=== PATIENT | female | born 1945 | race Caucasian/White ===

== ENCOUNTER 2018-07-30 10:09 | Outpatient (CLI) | payer MEDICARE, BC | END 2018-07-30 10:10 | disposition home or self-care (01) | LOC: BICMAMMO 10:09 | PROVIDERS: ATTEND Obstetrics & Gynecology | DX: Z12.31 Encounter for screening mammogram for malignant neoplasm of breast (principal); Z80.3 Family history of malignant neoplasm of breast | CPT/HCPCS: 77063; 77067 ==

== ENCOUNTER 2019-07-31 10:12 | Outpatient (CLI) | payer MEDICARE, BC ==
--- NOTE | 2019-07-31 12:00 | MMO ---
Bilateral MAMMO Bilat Diag DDI+MATT. CLINICAL HISTORY: Patient is 73 years old and is seen for screening. The patient has the following family history of breast cancer: 3 maternal aunts and 2 cousin females. The patient has no personal history of cancer. The patient has a history of right Excisional Biopsy at age 26 - benign. VIEWS: The views performed were: bilateral craniocaudal with tomosynthesis; bilateral mediolateral oblique with tomosynthesis; and bilateral mediolateral with tomosynthesis. FILMS COMPARED: The present examination has been compared to prior imaging studies performed at [facility] on 07/29/2017, 07/30/2018 and 07/31/2019. This study has been interpreted with the assistance of computer-aided detection. MAMMOGRAM FINDINGS: There are scattered fibroglandular densities. There are no suspicious masses, suspicious calcifications, or new areas of architectural distortion. IMPRESSION: THERE IS NO MAMMOGRAPHIC EVIDENCE OF MALIGNANCY. A ROUTINE FOLLOW-UP MAMMOGRAM IN 1 YEAR IS RECOMMENDED. THE RESULTS OF THIS EXAM WERE SENT TO THE PATIENT. ACR BI-RADS Category 2 - Benign finding MAMMOGRAPHY NOTE: 1. A negative mammogram report should not delay a biopsy if a dominant of clinically suspicious mass is present. 2. Approximately 10% to 15% of breast cancers are not detected by mammography. 3. Adenosis and dense breasts may obscure an underlying neoplasm. Reported by: JIMMY ANDERSON MD Electonically Signed: [id number]
--- NOTE | 2019-07-31 12:29 | BD ---
DEXA BONE DENSITY STUDY: Date: 07/31/19 HISTORY: Postmenopausal. FINDINGS: Lumbar Spine: BMD (g/cm2) L1 0.885 T-Score: -1.0 L2 0.923 T-Score: -1.0 L3 0.906 T-Score: -1.6 L4 0.949 T-Score: -1.0 Total 0.918 T-Score: -1.2 Left Femoral Neck: 0.584 T-Score: -2.4 Total Femur: 0.783 T-Score: -1.3 IMPRESSION: 1. 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 2. 10 year fracture risk for major osteoporotic fracture is 14% and for a hip fracture is 3.6%. Thes e fracture probabilities are calculated for an untreated patient. POS: TPC
--- NOTE | 2019-07-31 13:15 | ULT ---
RIGHT BREAST ULTRASOUND: Date: 07/31/19 HISTORY: Palpable abnormality in right axilla. FINDINGS: Sonographic evaluation of the right axilla demonstrates no abnormality. No mammographic abnormality i s seen on the same day's mammogram. IMPRESSION: BI-RADS Category 2 - Benign findings. Return to annual mammographic screening. POS: OFF
--- NOTE | 2019-07-31 13:16 | ULT ---
LEFT BREAST ULTRASOUND: Date: 07/31/19 HISTORY: Palpable abnormality at 4 o'clock position of left breast, 10 cm from the nipple. FINDINGS: Correlation made with mammogram from same date. No sonographic abnormality is seen. IMPRESSION: BI-RADS Category 2 - Benign findings. Return to annual mammographic screening. POS: OFF
== END 2019-07-31 10:13 | disposition home or self-care (01) ==
LOC: BICMAMMO 10:12
PROVIDERS: ATTEND Obstetrics & Gynecology
DX: Z13.820 Encounter for screening for osteoporosis (principal); M85.89 Other specified disorders of bone density and structure, multiple sites; N63.20 Unspecified lump in the left breast, unspecified quadrant
CPT/HCPCS: 76642 ×2; 77066; 77080; G0279

== ENCOUNTER 2020-01-27 19:31 | Inpatient (IN) | payer MEDICARE, BC, OTHER ==
[~2020-01-27 19:31] MED LIST: Heparin 1,000 UNITS/ML VIAL ONE
[2020-01-27 21:31] LABS: Base Excess (BEa) -2.1 mEq/L (-2.0 to +3.0); CO2 Tension 35.4 mmHg (35.0-45.0); Carboxyhemoglobin (COHb) 0.5 gm% (0.0-3.0); Hemoglobin (Hb) 13.2 g/dL (12.0-16.0); O2 Tension (PaO2), arterial 92.5 mmHg (> 70.0); pH, Arterial 7.41 (7.35-7.45)
[2020-01-27 21:32] LABS: Calcium, Ionized 1.16 mmol/L (1.12-1.30); Potassium - ABG Lab 3.43 mmol/L (3.70-5.30); Puncture Site RRA
[2020-01-27] MEDS ORDERED: Ondansetron ODT 4 MG TAB PO PRN (23:28)
[2020-01-27] MEDS ORDERED: Acetaminophen 650 MG Suppository PR PRN (23:28)
[2020-01-27] MEDS ORDERED: Ondansetron PF 4 MG/2 ML Vial IVP PRN (23:28)
[2020-01-27] MEDS ORDERED: Ventilator Sedation Protocol 1 EACH FS SCH (23:30)
[2020-01-27] MEDS ORDERED: fentaNYL Citrate/PF 2,000 MCG in Sodium Chloride 0.9% 60 ML IV SCH (23:40)
[2020-01-27] MEDS ORDERED: Propofol BOLUS 1,000 MG/100 ML VIAL IV PRN (23:40)
[2020-01-27] MEDS ORDERED: DISCONTINUE PREVIOUS NARCOTIC PAIN MEDICATIONS AND BENZODIAZEPINES FS SCH (23:40)
[2020-01-27] MEDS ORDERED: Fentanyl BOLUS 250 ML IVPB PRN (23:40)
[2020-01-27] MEDS ORDERED: Azithromycin 500 MG in Sodium Chloride 0.9% 250 ML 250 ML IVPB SCH (23:59)
--- NOTE | 2020-01-28 00:43 | HP ---
PRIMARY CARE PHYSICIAN: Israel Call. REASON FOR ADMISSION: Hypoxic respiratory failure with COVID-19 infection. HISTORY OF PRESENT ILLNESS: This is a 74-year-old white female, who was admitted to [facility] on January 22 for a fever with fatigue, cough, and shortness of breath. She had multiple positive COVID contacts in her household including her and son and is reportedly COVID positive herself, per [facility], she was treated over the course of the next 4 days with supportive care. Initially did have some antibiotics, uncertain if any were continued as we do not have an updated medical list from them. The patient became more fatigued over hospitalization, but was doing well from a respiratory standpoint until today. Today, she started to become hypoxic, was initially put on nasal cannula O2 eventually on a 15 L non-rebreather and the patient's oxygen saturation continued to drop down to the 60s on the non-rebreather. At that time, she was intubated and put on 100% FiO2 with good oxygen saturations and she was transferred here for ICU care and Pulmonology consult. I did examine her in the ICU on arrival. She is intubated and sedated. She was initially saturating 100% on the vent. The FiO2 has been turned down to 70% and she is now saturating between 95% and 96%. Her other vitals are stable. All history is taken from the chart as there is no family present and she is currently intubated and sedated. REVIEW OF SYSTEMS: Unable to obtain secondary to patient's intubated, sedated status. PAST MEDICAL HISTORY: 1. Hearing loss. 2. Hyperlipidemia. 3. Possible hypertension. PAST SURGICAL HISTORY: Cholecystectomy. FAMILY HISTORY: Positive for colon cancer in her father. SOCIAL HISTORY: No tobacco, alcohol, or illicit drug use. She is , lives with her and son, both of whom are currently sick at home with COVID as well. Her [id number] is from a COVID infection and on the of this month. ALLERGIES: 1. AUGMENTIN. 2. CODEINE. HOME MEDICATIONS: 1. Triamterene. 2. Lipitor. Current medications from [facility], no active med list was sent with her. PHYSICAL EXAMINATION: VITAL SIGNS: Blood pressure 116/59, pulse 80, respirations 18 on the vent, O2 saturation 96% currently, on FiO2 of 70%, temperature 101.4. GENERAL: This is a well-developed, well-nourished white female, sedated on the vent and in no current distress. HEENT: Pupils are equal, round, and reactive to light. Oropharynx with ET tube in place. NECK: Supple. No evidence of trauma. No bruising. No lymphadenopathy. No masses. No other abnormalities. LUNGS: The patient has some mild crackles, worse on the right compared to the left, bilateral lungs, but good air movement throughout. No wheezes or rhonchi. ABDOMEN: Soft, nontender to palpation. Normoactive bowel sounds. No hepatosplenomegaly or other masses. EXTREMITIES: No clubbing, cyanosis, or edema. SKIN: No rashes or other lesions noted. NEUROLOGIC: The patient does not have any evidence of facial droop. 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 LABORATORY DATA: ABG done here reviewed, shows the large A-aO2 gradient. Good oxygenation and good ventilation currently. Labs from [facility] reviewed, shows no renal failure. No leukocytosis. She had some lactic acidosis initially that resolved with some fluids in their hospital. No other significant abnormalities. ASSESSMENT: 1. COVID-19 infection, now with acute respiratory failure with hypoxia. The patient is doing better on the vent. We will continue to titrate down the FiO2 as tolerated and keep her O2 sats in the mid to high 90s. We will consult Dr. Hernandez, Pulmonology for management in the vent. Uncertain if the patient was receiving antibiotics at the [facility], but we will go ahead and give azithromycin IV for now. We will leave the decision on hydroxychloroquine or other COVID risk specific treatments up to Dr. Hernandez when he sees her later in the morning. 2. Gastrointestinal prophylaxis. We will put the patient on Pepcid twice a day. 3. Deep venous thrombosis prophylaxis. We will put the patient on Lovenox subcu. 4. Hyperlipidemia. 5. Code status: The patient is a full code. Her medical power of admitted attorneys is her . He is currently recovering from COVID himself at home along with her son. Job ID: [id number]
[2020-01-28] MEDS: D5 1/2 NS w/10 mEq KCl 1,000 ML/1,000 ML BAG IV SCH ×3 (00:48→22:58)
[2020-01-28] MEDS: Propofol 1,000 MG/100 ML VIAL IV PRN ×2 (03:07→12:27)
[2020-01-28 03:48] LABS: #Lymphocytes 0.8 thou/uL (1.20-3.40); #Monocytes 0.5 thou/uL (0.11-0.59); #Neutrophils 9.9 thou/uL (1.40-6.50); %Basophils 0.1 % (0.0-1.0); %Eosinophils 0.2 % (0.0-10.0); %Lymphocytes 6.9 % (21.0-51.0); %Monocytes 4.7 % (0.0-10.0); %Neutrophils 88.2 % (42.0-75.0); Hemoglobin 12.6 g/dL (12.0-16.0); Mean Corpuscular HGB CONC 32.5 g/dL (32.0-36.0); Mean Corpuscular Hemoglobin 30.5 pg (27.0-31.0); Mean Corpuscular Volume 94.1 fL (78.0-98.0); Mean Platelet Volume 8.9 fL (7.4-10.4); Platelet Count 178 thou/uL (130-400); Red Blood Cell (RBC) Count 4.14 mill/uL (4.20-5.40); White Blood Cell (WBC) Count 11.2 thou/uL (4.8-10.8)
[2020-01-28 04:12] LABS: Anion Gap 14 mmol/L (10-20); BUN (Urea Nitrogen) 13 mg/dL (9.8-20.1); Calc. Creatinine Clearance 99 mL/min (70-130); Calcium 8.3 mg/dL (7.8-10.44); Carbon Dioxide 23 mmol/L (23-31); Chloride 104 mmol/L (98-107); Estimated GFR-MDRD 83; Glucose 120 mg/dL (83-110); Potassium 3.4 mmol/L (3.5-5.1); Sodium 138 mmol/L (136-145)
--- NOTE | 2020-01-28 08:19 | RAD ---
CHEST 1 VIEW: Date: 01/28/2020 HISTORY: Intubation, hypoxia. COMPARISON: 11/22/2012. FINDINGS: Endotracheal tube and NG tubes in satisfactory position. There is evidence for bilateral vascular con gestion with some perihilar and patchy interstitial and alveolar opacities with evidence for left ple ural effusion. These findings are new from prior exam. IMPRESSION: Evidence for bilateral vascular congestion with some scattered interstitial and alveolar opacities an d left pleural effusion. Continue short-term follow-up. POS: RRE
[2020-01-28] MEDS ORDERED: Hydroxychloroquine Sulfate 200 MG, Simple Syrup 4 ML, Water For Irrigation 4 ML PER TUBE SCH (09:00)
[2020-01-28] MEDS ORDERED: Hydroxychloroquine Sulfate 400 MG, Simple Syrup 8 ML, Water For Irrigation 8 ML PER TUBE SCH (09:00)
[2020-01-28] MEDS: Cefepime 2 GM in Sodium Chloride 0.9% 100 ML IVPB SCH ×2 (09:33→21:23)
[2020-01-28] MEDS: Enoxaparin Sodium 40 MG/0.4 ML SYRINGE SC SCH (09:33)
[2020-01-28] MEDS: Famotidine/PF 20 mg/2ml Vial SLOW IVP SCH ×2 (09:34→21:23)
[2020-01-28] MEDS: Hydroxychloroquine Sulfate 200 MG, Simple Syrup 4 ML, Water For Irrigation 4 ML PER TUBE SCH ×2 (09:35→21:24)
[2020-01-28] MEDS: Lorazepam 2 MG/ML VIAL SLOW IVP PRN ×2 (10:16→12:27)
--- NOTE | 2020-01-28 10:32 | CON ---
DATE OF CONSULTATION: 01/28/2020 HISTORY OF PRESENT ILLNESS: Ms. Harrington is a 74-year-old female, who was hospitalized at [facility] with a febrile illness. Her COVID screen was positive. She became more hypoxic yesterday, was intubated, transferred to [facility] in [place]. PAST MEDICAL HISTORY: Remarkable for hypertension, lipid disorder, and cholecystectomy. FAMILY HISTORY: Negative for lung disease reportedly in early age, positive for cancer. She is a nonsmoker and nondrinker. Both and son apparently are at home with COVID and [id number] with COVID earlier. REVIEW OF SYSTEMS: Not obtained. PHYSICAL EXAMINATION: VITAL SIGNS: Blood pressure 129/45, heart rate 88, respiratory rate in the 30s. NECK: Unremarkable. LUNGS: Distant breath sounds. HEART: Regular rhythm. ABDOMEN: Soft. EXTREMITIES: Without edema. LABORATORY DATA: White count 11.2, hemoglobin 12.6, platelets 178. Electrolytes are normal. Chest x-ray shows an alveolar infiltrate at the left base. It certainly could be a superimposed bacterial process. Bibasilar alveolar and interstitial infiltrates are seen. IMPRESSION: Pneumonia with respiratory failure, at least in part secondary to coronavirus, broad antimicrobial therapy in addition to hydroxychloroquine and Zithromax will be given. She fortunately does not have any evidence of an acid- base disorder, so for the time being, we will be doing frequent blood gases. Hopefully, we will see gradual improvement in her clinical stability. Critical care time is 35 minutes. Job ID: [id number] MTDD
[2020-01-28] MEDS ORDERED: Potassium Chloride 40 MEQ in Sodium Chloride 0.9% 250 ML 250 ML IVPB SCH (11:45)
[2020-01-28] MEDS: Acetaminophen 325 MG TAB PO PRN ×2 (12:40→22:15)
[2020-01-28] MEDS ORDERED: Magnesium 2 GM/50 ML 2 GM in Premix Bag 1 BAG IVPB SCH (13:00)
--- NOTE | 2020-01-28 21:12 | PDOC.HOSPP ---
- Subjective Encounter Date: 01/28/20 Subjective: Remains sedated and on the vent. - Objective Vital Signs & Weight: Vital Signs (12 hours) Temp Pulse Resp BP Pulse Ox 01/28/20 20:00 30 H 100 01/28/20 19:21 82 94/47 L 01/28/20 19:00 100.1 F H 01/28/20 18:00 18 01/28/20 16:00 99.8 F H 18 01/28/20 15:00 99.3 F 01/28/20 14:20 74 81/48 L 01/28/20 14:00 18 01/28/20 12:00 101.7 F H 24 H 01/28/20 10:24 79 01/28/20 10:00 36 H Weight Admit Weight 188 lb Weight 188 lb 14.978 oz Most Recent Monitor Data Heart Rate from ECG 83 NIBP 103/59 NIBP BP-Mean 73 Respiration from ECG 36 SpO2 100 I&O: 01/27/20 01/28/20 01/29/20 06:59 06:59 06:59 Intake Total 788 1454 Output Total 397 365 Balance 391 1089 Result Diagrams: 01/28/20 03:06 01/28/20 03:06 Hospitalist ROS - Medication Medications: Active Medications Generic Name Dose Route Start Last Admin Trade Name Mehran PRN Reason Stop Dose Admin Acetaminophen 650 mg 01/27/20 23:28 01/28/20 12:40 Tylenol PO 650 mg Q4H PRN Administration Headache/Fever/Mild Pain (1-3) Albumin Human 12.5 gm 01/28/20 19:00 01/28/20 19:29 Albumin 5% IVPB 01/29/20 01:00 12.5 gm NOW BOO Administration Hydroxychloroquine Sulfate 200 0 mg 01/28/20 09:00 01/28/20 09:35 mg/ Simple Syrup 4 ml/ PER TUBE 8 ml Sterile Water 4 ml BID BOO Administration Enoxaparin Sodium 40 mg 01/28/20 09:00 01/28/20 09:33 Lovenox SC 40 mg 0900 BOO Administration Famotidine 20 mg 01/28/20 09:00 01/28/20 09:34 Pepcid SLOW IVP 20 mg Q12HR BOO Administration Potassium Chloride/Dextrose/Sod Cl 1,000 ml in 1,000 mls @ 100 mls/hr 23:45 01/28/20 09:35 D5 1/2 Ns W/10 Meq Kcl IV 1,000 mls .Q10H BOO Administration Cefepime HCl 2 gm/ Sodium 100 mls @ 200 mls/hr 01/28/20 09:00 01/28/20 09:33 Chloride IVPB 100 mls Q12HR BOO Administration Lorazepam 2 mg 01/27/20 23:40 01/28/20 12:27 Ativan SLOW IVP 02/26/20 23:40 2 mg Q1H PRN Administration Breakthrough agitation Propofol 1,000 mg 01/27/20 23:40 01/28/20 12:27 Diprivan IV 02/26/20 23:40 1,000 mg INF PRN Administration TO ACHIEVE GOAL RASS Protocol Hosp A/P (1) Acute respiratory failure with hypoxia Code(s): J96.01 - ACUTE RESPIRATORY FAILURE WITH HYPOXIA Status: Acute (2) 2019-nCo acute respiratory disease Code(s): U07.1 - COVID-19; J06.9 - ACUTE UPPER RESPIRATORY INFECTION, UNSPECIFIED Status: Acute (3) Hyperlipidemia Code(s): E78.5 - HYPERLIPIDEMIA, UNSPECIFIED Status: Acute - Plan Ventilator management per pulmonology. On Hydroxycholoquine and azithromycin regimen.
[2020-01-28] MEDS: Azithromycin 500 MG in Sodium Chloride 0.9% 250 ML 250 ML IVPB SCH (21:24)
[2020-01-29] MEDS: Propofol 1,000 MG/100 ML VIAL IV PRN ×2 (02:31→09:37)
[2020-01-29 05:15] LABS: Band 10 % (5-11); Hemoglobin 11.2 g/dL (12.0-16.0); Lymphocytes 3 % (21-51); MDiff Complete? YES; Mean Corpuscular HGB CONC 33.9 g/dL (32.0-36.0); Mean Corpuscular Hemoglobin 32.1 pg (27.0-31.0); Mean Corpuscular Volume 94.8 fL (78.0-98.0); Mean Platelet Volume 11.1 fL (7.4-10.4); Monocytes 2 % (0-10); Neutrophil 84 % (42-75); Platelet Count 135 thou/uL (130-400); RBC Distribution Width 13.1 % (11.5-14.5); Red Blood Cell (RBC) Count 3.49 mill/uL (4.20-5.40); White Blood Cell (WBC) Count 8.9 thou/uL (4.8-10.8)
--- NOTE | 2020-01-29 07:34 | RAD ---
CHEST 1 VIEW: Date: 01/29/2020 HISTORY: Respiratory insufficiency. Ventilated patient. FINDINGS: NG tube and endotracheal tubes are in satisfactory location. Patchy interstitial and reticulonodular parenchymal changes noted bilaterally with some confluence, moreso in the left base and right upper l obe and right lower lobe. These bilateral parenchymal changes appear to have probably slightly worsen ed from the prior exam. Probable small pleural effusion, particularly on the left side. IMPRESSION: Bilateral parenchymal changes with some confluence possibly slightly worsening versus stable from mos t recent prior study. Continue short-term follow-up. POS: RRE
[2020-01-29] MEDS: D5 1/2 NS w/10 mEq KCl 1,000 ML/1,000 ML BAG IV SCH (09:32)
[2020-01-29] MEDS: Enoxaparin Sodium 40 MG/0.4 ML SYRINGE SC SCH (09:37)
[2020-01-29] MEDS: Famotidine/PF 20 mg/2ml Vial SLOW IVP SCH ×2 (09:37→21:15)
[2020-01-29] MEDS: Cefepime 2 GM in Sodium Chloride 0.9% 100 ML IVPB SCH ×2 (09:37→21:15)
[2020-01-29] MEDS: Hydroxychloroquine Sulfate 200 MG, Simple Syrup 4 ML, Water For Irrigation 4 ML PER TUBE SCH ×2 (09:57→21:15)
[2020-01-29 10:35] LABS: Anion Gap 15 mmol/L (10-20); BUN (Urea Nitrogen) 7 mg/dL (9.8-20.1); Calc. Creatinine Clearance 114 mL/min (70-130); Calcium 8.4 mg/dL (7.8-10.44); Carbon Dioxide 21 mmol/L (23-31); Chloride 106 mmol/L (98-107); Estimated GFR-MDRD Greater than 90; Glucose 110 mg/dL (83-110); Sodium 138 mmol/L (136-145)
[2020-01-29] MEDS ORDERED: Furosemide 100 MG/10 ML VIAL SLOW IVP SCH (11:13)
[2020-01-29] MEDS ORDERED: D5 1/2 NS w/10 mEq KCl 1,000 ML/1,000 ML BAG IV SCH (11:14)
--- NOTE | 2020-01-29 11:25 | PRG ---
DATE OF SERVICE: 01/29/2020 SUBJECTIVE: Ms. Harrington remains mechanically ventilated. Her airway pressures are acceptable. Her lung compliance is still good. OBJECTIVE: VITAL SIGNS: Blood pressure is 112/62, heart rate 77, FiO2 is at 50%. LUNGS: Unchanged. HEART: Unchanged. ABDOMEN: Unchanged. EXTREMITIES: She has no edema. Intake and output, positive, 2707, so she will be placed on Lasix. LABORATORY DATA: White count 8.9, hemoglobin 11.2, platelets 135. Electrolytes are unremarkable. PH 7.41, CO2 PO2 92. IMPRESSION: 1. Respiratory failure associated with COVID. 2. Possible superimposed bacterial pneumonia. 3. Positive fluid balance. PLAN: Try to keep her in a neutral or negative fluid balance. Continue ventilatory support. She appears to be stabilizing. CRITICAL CARE TIME: 30 minutes. Job ID: [id number]
[2020-01-29] MEDS: Lorazepam 2 MG/ML VIAL SLOW IVP PRN ×3 (14:43→17:46)
--- NOTE | 2020-01-29 14:54 | PDOC.PALCO ---
Palliative Care Consult - Consult Details Requesting Physician: Dr Hernandez Reason for Consult: family support - Pertinent HPI 74 year old female who was admitted at [facility] for fever fatigue, cough and shortness of breath. She is COVID positive as well as her and son. Mother in law on 01/21/2020 from Covid 19. Mrs Gray continued with decline and became hypoxic, place on non-rebreather @ 15 liters and O2 sat continued to decline and was in the 60's. Intubated, sedated and transferred to [facility] for ICU care and pulmonary consult. Vitals stable, remains mechanically ventilated and with sedation - Pertinent PMH HDL, HTN - Social History Smoking Status: Never smoker Smoking: no tobacco exposure Alcohol Use: none Drug Use History: none Living Situation: - Medications MAR Reviewed: Yes - Allergies Allergies/Adverse Reactions: Allergies Allergy/AdvReac Type Severity Reaction Status Date / Time amoxicillin trihydrate Allergy Verified 01/28/20 02:15 [From Augmentin] codeine Allergy Verified 01/28/20 02:15 potassium clavulanate Allergy Verified 01/28/20 02:15 [From Augmentin] - Subjective Sedated with mechanical ventilation - ROS Non Response: due to endotracheal tube, due to mental status - Objective Vital Signs: Vital Signs - Most Recent Temp Pulse Resp BP Pulse Ox 99.8 F H 77 45 H 112/62 100 01/29/20 13:00 01/29/20 10:50 01/29/20 14:00 01/29/20 10:50 01/29/20 08:00 Palliative Performance Scale: 20 - Problem List (1) Palliative care encounter Code(s): Z51.5 - ENCOUNTER FOR PALLIATIVE CARE Current Visit: Yes Status: Acute (2) 2019-nCoV acute respiratory disease Code(s): U07.1 - COVID-19; J06.9 - ACUTE UPPER RESPIRATORY INFECTION, UNSPECIFIED Current Visit: Yes Status: Acute (3) Acute respiratory failure with hypoxia Code(s): J96.01 - ACUTE RESPIRATORY FAILURE WITH HYPOXIA Current Visit: Yes Status: Acute (4) Hyperlipidemia Code(s): E78.5 - HYPERLIPIDEMIA, UNSPECIFIED Current Visit: Yes Status: Acute - Plan/Recommendations Plan: Introduced Palliative Care to and that we were available for family support. General life review of he and his , have known each other for greater than 55 years, for 50+. He was grateful she has always been in good health. Reviewed that today she was with no significant improvement, but no specific decline and that was good. He is hopeful for a full recovery and grateful for the care. Addressed questions. Emotional support and Therapeutic listening. Goal of care: Continue with all aggressive measures Communicated with Dr Dove [50] minutes spent on this encounter with >50% of the time in counseling and coordination of care. Thank you for this very appropriate consult.
[2020-01-29] MEDS: Acetaminophen 325 MG TAB PO PRN (17:53)
--- NOTE | 2020-01-29 20:45 | PDOC.HOSPP ---
- Subjective Encounter Date: 01/29/20 non-verbal Subjective: Intubated. - Objective Vital Signs & Weight: Vital Signs (12 hours) Temp Pulse Resp BP 01/29/20 19:15 76 01/29/20 18:00 101.8 F H 38 H 01/29/20 16:00 42 H 01/29/20 15:00 100.8 F H 01/29/20 14:48 81 111/53 L 01/29/20 14:00 45 H 01/29/20 13:00 99.8 F H 01/29/20 12:00 43 H 01/29/20 10:50 77 112/62 01/29/20 10:00 99.4 F 29 H Weight Admit Weight 188 lb Weight 194 lb 10.691 oz Most Recent Monitor Data Heart Rate from ECG 82 NIBP 86/46 NIBP BP-Mean 59 Respiration from ECG 21 SpO2 100 I&O: 01/28/20 01/29/20 01/30/20 06:59 06:59 06:59 Intake Total 788 3867.6 713 Output Total 397 1160 3925 Balance 391 2707.6 -8052 Result Diagrams: 01/29/20 04:07 01/29/20 04:07 Hospitalist ROS - Review of Systems ROS unobtainable: due to endotracheal tube - Medication Medications: Active Medications Generic Name Dose Route Start Last Admin Trade Name Freq PRN Reason Stop Dose Admin Acetaminophen 650 mg 01/27/20 23:28 01/29/20 17:53 Tylenol PO 650 mg Q4H PRN Administration Headache/Fever/Mild Pain (1-3) Albumin Human 12.5 gm 01/28/20 23:56 01/28/20 23:59 Albumin 5% IVPB 01/29/20 23:57 12.5 gm NOW PRN Administration REPEAT DOSE, LOW BP Hydroxychloroquine Sulfate 200 0 mg 01/28/20 09:00 01/29/20 09:57 mg/ Simple Syrup 4 ml/ PER TUBE 8 ml Sterile Water 4 ml BID BOO Administration Enoxaparin Sodium 40 mg 01/28/20 09:00 01/29/20 09:37 Lovenox SC 40 mg 0900 BOO Administration Famotidine 20 mg 01/28/20 09:00 01/29/20 09:37 Pepcid SLOW IVP 20 mg Q12HR BOO Administration Azithromycin 500 mg/ Sodium 250 mls @ 250 mls/hr 01/28/20 21:00 01/28/20 21: 24 Chloride IVPB 250 mls 2100 BOO Administration Cefepime HCl 2 gm/ Sodium 100 mls @ 200 mls/hr 01/28/20 09:00 01/29/20 09:37 Chloride IVPB 100 mls Q12HR BOO Administration Lorazepam 2 mg 01/27/20 23:40 01/29/20 17:46 Ativan SLOW IVP 02/26/20 23:40 2 mg Q1H PRN Administration Breakthrough agitation Propofol 1,000 mg 01/27/20 23:40 01/29/20 09:37 Diprivan IV 02/26/20 23:40 1,000 mg INF PRN Administration TO ACHIEVE GOAL RASS Protocol - Exam General - other findings: Deferred Hosp A/P (1) Acute respiratory failure with hypoxia Code(s): J96.01 - ACUTE RESPIRATORY FAILURE WITH HYPOXIA Status: Acute (2) 2019-nCoV acute respiratory disease Code(s): U07.1 - COVID-19; J06.9 - ACUTE UPPER RESPIRATORY INFECTION, UNSPECIFIED Status: Acute (3) Hyperlipidemia Code(s): E78.5 - HYPERLIPIDEMIA, UNSPECIFIED Status: Acute - Plan Status unchanged. Ventilator management per pulmonology. On Hydroxycholoquine and azithromycin regimen.
[2020-01-29] MEDS: Azithromycin 500 MG in Sodium Chloride 0.9% 250 ML 250 ML IVPB SCH (21:15)
[2020-01-30] MEDS: Lorazepam 2 MG/ML VIAL SLOW IVP PRN ×7 (01:53→16:05)
[2020-01-30] MEDS: Propofol 1,000 MG/100 ML VIAL IV PRN ×3 (03:00→18:50)
[2020-01-30 04:44] LABS: Anion Gap 14 mmol/L (10-20); BUN (Urea Nitrogen) 11 mg/dL (9.8-20.1); Calc. Creatinine Clearance 109 mL/min (70-130); Calcium 8.2 mg/dL (7.8-10.44); Carbon Dioxide 25 mmol/L (23-31); Chloride 103 mmol/L (98-107); Estimated GFR-MDRD Greater than 90; Glucose 111 mg/dL (83-110); Potassium 3.6 mmol/L (3.5-5.1); Sodium 138 mmol/L (136-145)
[2020-01-30 04:58] LABS: Band 2 % (5-11); Eosinophils 1 % (0-10); Hemoglobin 13.3 g/dL (12.0-16.0); Lymphocytes 6 % (21-51); MDiff Complete? YES; Mean Corpuscular HGB CONC 32.1 g/dL (32.0-36.0); Mean Corpuscular Hemoglobin 30.4 pg (27.0-31.0); Mean Corpuscular Volume 94.7 fL (78.0-98.0); Mean Platelet Volume 9.5 fL (7.4-10.4); Neutrophil 91 % (42-75); Platelet Count 172 thou/uL (130-400); RBC Distribution Width 12.9 % (11.5-14.5); Red Blood Cell (RBC) Count 4.36 mill/uL (4.20-5.40); White Blood Cell (WBC) Count 10.4 thou/uL (4.8-10.8)
--- NOTE | 2020-01-30 08:28 | RAD ---
SINGLE VIEW CHEST: HISTORY: Ventilated patient with respiratory failure. COMPARISON: 01/29/20 FINDINGS: A single view of the chest shows a normal sized cardiomediastinal silhouette. Lines and tubes are unc hanged in position. Bilateral perihilar opacities are seen. Diffuse increased interstitial markings a re present. There may be small bilateral pleural effusions. IMPRESSION: Small bilateral pleural effusions. POS: C
[2020-01-30] MEDS: Cefepime 2 GM in Sodium Chloride 0.9% 100 ML IVPB SCH ×2 (09:54→20:05)
[2020-01-30] MEDS: Enoxaparin Sodium 40 MG/0.4 ML SYRINGE SC SCH (09:54)
[2020-01-30] MEDS: Famotidine/PF 20 mg/2ml Vial SLOW IVP SCH ×2 (09:54→20:05)
[2020-01-30] MEDS: Hydroxychloroquine Sulfate 200 MG, Simple Syrup 4 ML, Water For Irrigation 4 ML PER TUBE SCH ×2 (09:55→20:08)
[2020-01-30] MEDS ORDERED: Potassium Chloride 40 MEQ in Premix Bag 1 BAG IVPB PRN (12:37)
[2020-01-30] MEDS ORDERED: Potassium Chloride 40 MEQ in Sodium Chloride 0.9% 250 ML 250 ML IVPB PRN ×2 (12:39→12:40)
[2020-01-30] MEDS: Potassium Chloride 40 MEQ in Sodium Chloride 0.9% 250 ML 250 ML IVPB PRN (13:28)
[2020-01-30] MEDS ORDERED: Enoxaparin Sodium 30 MG/0.3 ML SYRINGE SC SCH (13:30)
--- NOTE | 2020-01-30 14:35 | PRG ---
DATE OF SERVICE: 01/30/2020 SUBJECTIVE: Mckenzie Harrington's hemodynamics are stable. OBJECTIVE: VITAL SIGNS: Heart rate is in the 70s, blood pressure 113/59, FiO2 is at 50. LUNGS: Distant. HEART: Regular rhythm. ABDOMEN: Nontender. EXTREMITIES: Without edema. LABORATORY DATA: White count 10.4, hemoglobin 13.3, platelets 172. Electrolytes are normal. No blood gas recently in the morning. Chest x-ray shows mild increased interstitial markings. IMPRESSION: 1. Pneumonia. 2. COVID positive. She appears to have stabilized somewhat. Her negative fluid balance may have helped. We will bump up her dose of Lovenox for now. Renal function is stable. She is not a candidate for weaning and extubation at this point . CRITICAL CARE TIME: 30 minutes. Job ID: [id number]
[2020-01-30] MEDS: Fentanyl 100 MCG/2 ML VIAL ONE (14:57)
[2020-01-30] MEDS ORDERED: Lorazepam 100 ML IVPB SCH (16:15)
[2020-01-30] MEDS ORDERED: methylPREDNISolone Sod Succ/PF 125 MG/2 ML VIAL IVP SCH (19:00)
[2020-01-30] MEDS: Azithromycin 500 MG in Sodium Chloride 0.9% 250 ML 250 ML IVPB SCH (20:04)
[2020-01-30] MEDS: Acetaminophen 325 MG TAB PO PRN (20:23)
--- NOTE | 2020-01-30 22:35 | PDOC.EVN ---
Event Note - Event Note Event Note: Seen by PCCM earlier. Avoided physical encounter to limit unnecessary exposure. Appreciated notes from PCCM and palliative. per PCCM, clinically improving but not candidate for extubation. Will continue to follow
[2020-01-31] MEDS: Propofol 1,000 MG/100 ML VIAL IV PRN ×2 (01:01→05:55)
[2020-01-31 04:19] LABS: Anion Gap 11 mmol/L (10-20); BUN (Urea Nitrogen) 17 mg/dL (9.8-20.1); Calc. Creatinine Clearance 111 mL/min (70-130); Carbon Dioxide 27 mmol/L (23-31); Chloride 106 mmol/L (98-107); Estimated GFR-MDRD Greater than 90; Glucose 168 mg/dL (83-110); Magnesium 1.9 mg/dL (1.6-2.6); Potassium 3.6 mmol/L (3.5-5.1); Sodium 140 mmol/L (136-145)
[2020-01-31 04:45] LABS: Band 15 % (5-11); Hemoglobin 12.1 g/dL (12.0-16.0); Lymphocytes 5 % (21-51); MDiff Complete? YES; Mean Corpuscular HGB CONC 32.8 g/dL (32.0-36.0); Mean Corpuscular Hemoglobin 30.8 pg (27.0-31.0); Mean Corpuscular Volume 93.8 fL (78.0-98.0); Mean Platelet Volume 9.4 fL (7.4-10.4); Monocytes 1 % (0-10); Neutrophil 79 % (42-75); Platelet Count 188 thou/uL (130-400); RBC Distribution Width 12.9 % (11.5-14.5); Red Blood Cell (RBC) Count 3.93 mill/uL (4.20-5.40); White Blood Cell (WBC) Count 8.4 thou/uL (4.8-10.8)
[2020-01-31] MEDS: Potassium Chloride 40 MEQ in Sodium Chloride 0.9% 250 ML 250 ML IVPB PRN (05:54)
[2020-01-31] MEDS: Magnesium 2 GM/50 ML 2 GM in Premix Bag 1 BAG IVPB PRN (05:55)
--- NOTE | 2020-01-31 07:48 | RAD ---
SINGLE VIEW CHEST: Date: 01/31/2020 COMPARISON: 01/30/2020. HISTORY: Ventilated patient with respiratory failure. FINDINGS: Single view of the chest shows normal sized cardiomediastinal silhouette. The endotracheal tube and N G tube are unchanged in position. Increased interstitial lung markings are present. There is obscurit y of the left hemidiaphragm which may represent small left pleural effusion. IMPRESSION: Stable exam. POS: C
[2020-01-31] MEDS: Hydroxychloroquine Sulfate 200 MG, Simple Syrup 4 ML, Water For Irrigation 4 ML PER TUBE SCH ×2 (08:05→20:42)
[2020-01-31] MEDS: methylPREDNISolone Sod Succ/PF 125 MG/2 ML VIAL IVP SCH (08:06)
[2020-01-31] MEDS: Enoxaparin Sodium 40 MG/0.4 ML SYRINGE SC SCH (08:06)
[2020-01-31] MEDS: Famotidine/PF 20 mg/2ml Vial SLOW IVP SCH ×2 (08:06→20:41)
[2020-01-31] MEDS: Cefepime 2 GM in Sodium Chloride 0.9% 100 ML IVPB SCH ×2 (08:06→20:40)
[2020-01-31] MEDS ORDERED: Fentanyl 100 MCG/2 ML VIAL SLOW IVP SCH (11:30)
[2020-01-31] MEDS ORDERED: Fentanyl 100 MCG/2 ML VIAL ONE (11:30)
--- NOTE | 2020-01-31 17:00 | PRG ---
DATE OF SERVICE: 01/31/2020 SUBJECTIVE: Mckenzie Harrington is clinically unchanged. Somehow her pressure support got turned up to 20 and her FiO2 was increased to 60%. We have turned her pressure support back down, her PEEP up, and her FiO2 down. At this point in time, she appears to be stable. OBJECTIVE: VITAL SIGNS: Respiratory rates in the 20s, heart rate is in the 50s, blood pressure 104/57, oximetry is 94%. LUNGS: Unchanged. No report. HEART: Unchanged. No report. ABDOMEN: Unchanged. No report. EXTREMITIES: Unchanged. No report. LABORATORY DATA: White count 8.4, hemoglobin 12.1, platelets 188. Sodium 140, potassium 3.6, chloride 106, bicarb 27, BUN 17, creatinine 0.63. IMPRESSION: Pneumonia with respiratory failure. PLAN: Continue mechanical ventilation for now. Job ID: [id number]
--- NOTE | 2020-01-31 17:26 | PDOC.HOSPP ---
- Subjective Encounter Date: 01/31/20 Encounter Time: 17:00 Subjective: no overnight events. Becomes tachypnic and agitated when attempting sedation vacation. Remains intubated and sedated - Objective Vital Signs & Weight: Vital Signs (12 hours) Temp Pulse Resp BP Pulse Ox 01/31/20 16:00 24 H 01/31/20 15:00 99.1 F 01/31/20 14:48 69 95/53 L 01/31/20 14:00 28 H 01/31/20 12:00 98.2 F 22 H 01/31/20 11:17 73 99/58 L 01/31/20 11:00 97.3 F L 01/31/20 10:00 36 H 01/31/20 08:00 96.4 F L 18 92 L 01/31/20 06:58 62 99/54 L 01/31/20 06:00 18 Weight Admit Weight 188 lb Weight 199 lb 1.239 oz Most Recent Monitor Data Heart Rate from ECG 70 NIBP 103/56 NIBP BP-Mean 71 Respiration from ECG 21 SpO2 94 I&O: 01/30/20 01/31/20 02/01/20 06:59 06:59 06:59 Intake Total 1823.7 2764.5 1567 Output Total 4422 878 405 Balance -2598.3 1886.5 1162 Result Diagrams: 01/31/20 03:42 01/31/20 03:42 Hospitalist ROS - Review of Systems ROS unobtainable: due to endotracheal tube - Medication Medications: Active Medications Generic Name Dose Route Start Last Admin Trade Name Freq PRN Reason Stop Dose Admin Acetaminophen 650 mg 01/27/20 23:28 01/30/20 20:23 Tylenol PO 650 mg Q4H PRN Administration Headache/Fever/Mild Pain (1-3) Hydroxychloroquine Sulfate 200 0 mg 01/28/20 09:00 01/31/20 08:05 mg/ Simple Syrup 4 ml/ PER TUBE 8 ml Sterile Water 4 ml BID BOO Administration Enoxaparin Sodium 40 mg 01/28/20 09:00 01/31/20 08:06 Lovenox SC 40 mg 0900 BOO Administration Famotidine 20 mg 01/28/20 09:00 01/31/20 08:06 Pepcid SLOW IVP 20 mg Q12HR BOO Administration Azithromycin 500 mg/ Sodium 250 mls @ 250 mls/hr 01/28/20 21:00 01/30/20 20: 04 Chloride IVPB 250 mls 2100 BOO Administration Cefepime HCl 2 gm/ Sodium 100 mls @ 200 mls/hr 01/28/20 09:00 01/31/20 08:06 Chloride IVPB 100 mls Q12HR BOO Administration Potassium Chloride/Dextrose/Sod Cl 1,000 ml in 1,000 mls @ 0 mls/hr 01/29/20 11:14 01/30/20 20:09 D5 1/2 Ns W/10 Meq Kcl IV 1,000 mls .Q0M BOO Administration KVO Magnesium Sulfate 2 gm/ Device 50 mls @ 50 mls/hr 01/30/20 12:38 01/31/20 05: 55 IVPB 50 mls DAILYPRN PRN Administration MAG LEVEL < 2.0 Potassium Chloride 40 meq/ 270 mls @ 67.5 mls/hr 01/30/20 13:00 01/31/20 05: 54 Sodium Chloride IVPB 270 mls DAILYPRN PRN Administration K < 4.0 Lorazepam 100 mls @ 0 mls/hr 01/30/20 16:15 01/30/20 16:36 Ativan IVPB 100 mls INF BOO Administration Protocol Titrate Lorazepam 2 mg 01/27/20 23:40 01/30/20 16:05 Ativan SLOW IVP 02/26/20 23:40 2 mg Q1H PRN Administration Breakthrough agitation Methylprednisolone Sodium Succinate 60 mg 01/31/20 09:00 01/31/20 08:06 Solu-Medrol IVP 60 mg DAILY BOO Administration Propofol 1,000 mg 01/27/20 23:40 01/31/20 05:55 Diprivan IV 02/26/20 23:40 1,000 mg INF PRN Administration TO ACHIEVE GOAL RASS Protocol - Exam General - other findings: intubated and sedated Eye - other findings: pupils 2mm, equal ENT: moist mucosa Neck: no JVD Heart: RRR, no murmur, no gallops, no rubs Respiratory: CTAB, no wheezes, no rales, no ronchi, tachypneic Respiratory - other findings: breathing over vent in 30s Gastrointestinal: soft, non-distended Gastrointestinal - other findings: attenuated bowel sounds Hosp A/P - Plan #COVID pneumonia -remains intabated and sedated; 18/450/50/8, RR 30s breathing over vent, satting low 90s; -continues to be febrile; CXR (01/30) unchanged -ventilation management as per ICU -continue cefepime, azithromycin, hydroxychloroquine -follow I/O closely; has been positive in the past several days
[2020-01-31] MEDS: Azithromycin 500 MG in Sodium Chloride 0.9% 250 ML 250 ML IVPB SCH (20:40)
[2020-02-01] MEDS: Propofol 1,000 MG/100 ML VIAL IV PRN ×2 (00:55→08:39)
[2020-02-01 04:19] LABS: Anion Gap 12 mmol/L (10-20); BUN (Urea Nitrogen) 29 mg/dL (9.8-20.1); Calc. Creatinine Clearance 121 mL/min (70-130); Carbon Dioxide 25 mmol/L (23-31); Chloride 109 mmol/L (98-107); Estimated GFR-MDRD Greater than 90; Sodium 142 mmol/L (136-145)
[2020-02-01 04:20] LABS: Calcium 8.3 mg/dL (7.8-10.44); Glucose 144 mg/dL (83-110)
[2020-02-01 04:22] LABS: Band 7 % (5-11); Lymphocytes 1 % (21-51); MDiff Complete? YES; Mean Corpuscular HGB CONC 32.3 g/dL (32.0-36.0); Mean Corpuscular Hemoglobin 30.6 pg (27.0-31.0); Mean Corpuscular Volume 94.9 fL (78.0-98.0); Mean Platelet Volume 9.7 fL (7.4-10.4); Monocytes 5 % (0-10); Neutrophil 87 % (42-75); Platelet Count 224 thou/uL (130-400); RBC Distribution Width 12.9 % (11.5-14.5); Red Blood Cell (RBC) Count 3.92 mill/uL (4.20-5.40); White Blood Cell (WBC) Count 15.5 thou/uL (4.8-10.8)
[2020-02-01] MEDS: Cefepime 2 GM in Sodium Chloride 0.9% 100 ML IVPB SCH ×2 (08:38→19:41)
[2020-02-01] MEDS: methylPREDNISolone Sod Succ/PF 125 MG/2 ML VIAL IVP SCH (08:39)
[2020-02-01] MEDS: Enoxaparin Sodium 40 MG/0.4 ML SYRINGE SC SCH (08:40)
[2020-02-01] MEDS: Famotidine/PF 20 mg/2ml Vial SLOW IVP SCH ×2 (08:40→19:40)
[2020-02-01] MEDS: Hydroxychloroquine Sulfate 200 MG, Simple Syrup 4 ML, Water For Irrigation 4 ML PER TUBE SCH ×2 (09:16→20:17)
--- NOTE | 2020-02-01 09:16 | RAD ---
PORTABLE CHEST 1 VIEW: Date: 02/01/2020 Time: 0448 hours HISTORY: Respiratory failure. FINDINGS/IMPRESSION: Comparison made with exam from previous day. Endotracheal and nasogastric tubes remain in place. The heart size is stable. No pneumothoraces are s een. There are small bilateral pleural effusions. There is bilateral haziness in the lungs. POS: DELMAA
--- NOTE | 2020-02-01 12:49 | PRG ---
DATE OF SERVICE: 02/01/2020 SUBJECTIVE: Mckenzie Gray remains hemodynamically stable. Her gas exchange appears to be slowly improving. Chest radiographs essentially unchanged. poorly unchanged. LABORATORY STUDIES: White count 15.5, hemoglobin 12.0, platelets 224. Sodium 142, potassium 4, chloride 109, bicarb 25, BUN 29, creatinine 0.59. C-reactive protein is 19. IMPRESSION: 1. Pneumonia. 2. COVID-19 positive. 3. Respiratory failure as tolerated. We will try different combinations of sedative drugs to see if we can control her encephalopathy. Job ID: [id number]
--- NOTE | 2020-02-01 17:42 | PDOC.EVN ---
Event Note - Event Note Event Note: Remains HD stable, breathing over vent, tachypnic, low TV, lung compliance appears unchanged. Reviewed labs and imaging, increased neutrophilia likely due to steroids. CXR significantly rotated ,difficult to compare to previous. Avoided seeing patient physically today to limit COVID exposure.
[2020-02-01] MEDS: Azithromycin 500 MG in Sodium Chloride 0.9% 250 ML 250 ML IVPB SCH (20:17)
[2020-02-02 04:35] LABS: Anion Gap 13 mmol/L (10-20); BUN (Urea Nitrogen) 30 mg/dL (9.8-20.1); Calc. Creatinine Clearance 122 mL/min (70-130); Calcium 8.4 mg/dL (7.8-10.44); Carbon Dioxide 23 mmol/L (23-31); Chloride 110 mmol/L (98-107); Estimated GFR-MDRD Greater than 90; Glucose 106 mg/dL (83-110); Potassium 4.3 mmol/L (3.5-5.1); Sodium 142 mmol/L (136-145)
[2020-02-02 05:39] LABS: Band 13 % (5-11); Hemoglobin 13.4 g/dL (12.0-16.0); Lymphocytes 6 % (21-51); MDiff Complete? YES; Mean Corpuscular HGB CONC 31.7 g/dL (32.0-36.0); Mean Corpuscular Hemoglobin 29.9 pg (27.0-31.0); Mean Corpuscular Volume 94.1 fL (78.0-98.0); Mean Platelet Volume 9.4 fL (7.4-10.4); Monocytes 5 % (0-10); Neutrophil 76 % (42-75); Platelet Count 213 thou/uL (130-400); Red Blood Cell (RBC) Count 4.47 mill/uL (4.20-5.40); White Blood Cell (WBC) Count 14.8 thou/uL (4.8-10.8)
--- NOTE | 2020-02-02 07:32 | RAD ---
PORTABLE CHEST 1 VIEW: Date: 02/02/2020 Time: 0441 hours HISTORY: Respiratory failure. COMPARISON: Previous day. FINDINGS/IMPRESSION: Endotracheal and nasogastric tubes remain in place. The heart size is stable. The aorta is tortuous. There is pulmonary vascular congestion with bilateral pleural effusions. No pneumothoraces are seen. There are mild infiltrates in the lower lung torrez. POS: MZA
[2020-02-02] MEDS: Fentanyl 100 MCG/2 ML VIAL ONE (08:26)
[2020-02-02] MEDS: Cefepime 2 GM in Sodium Chloride 0.9% 100 ML IVPB SCH ×2 (08:29→21:06)
[2020-02-02] MEDS: Famotidine/PF 20 mg/2ml Vial SLOW IVP SCH ×2 (08:29→21:06)
[2020-02-02] MEDS: methylPREDNISolone Sod Succ/PF 125 MG/2 ML VIAL IVP SCH (08:30)
[2020-02-02] MEDS: Enoxaparin Sodium 40 MG/0.4 ML SYRINGE SC SCH (08:30)
--- NOTE | 2020-02-02 09:10 | PDOC.HOSPP ---
- Subjective Encounter Date: 02/02/20 Encounter Time: 08:45 Subjective: no overnight events. This morning, RR 60s per nurse so was given fentanyl. ventilation demand unchanged. - Objective Vital Signs & Weight: Vital Signs (12 hours) Temp Pulse Resp BP 02/02/20 07:19 68 02/02/20 06:00 28 H 02/02/20 04:00 97.6 F 36 H 02/02/20 02:03 60 151/82 H 02/02/20 02:00 26 H 02/02/20 00:00 98.6 F 38 H 02/01/20 23:03 63 02/01/20 22:00 31 H Weight Admit Weight 188 lb Weight 196 lb 3.382 oz Most Recent Monitor Data Heart Rate from ECG 58 NIBP 131/67 NIBP BP-Mean 88 Respiration from ECG 36 SpO2 93 I&O: 02/01/20 02/02/20 02/03/20 06:59 06:59 06:59 Intake Total 2618 1322 Output Total 1045 966 Balance 1573 356 Result Diagrams: 02/02/20 03:54 02/02/20 03:54 Hospitalist ROS - Review of Systems ROS unobtainable: due to endotracheal tube - Medication Medications: Active Medications Generic Name Dose Route Start Last Admin Trade Name Freq PRN Reason Stop Dose Admin Acetaminophen 650 mg 01/27/20 23:28 01/30/20 20:23 Tylenol PO 650 mg Q4H PRN Administration Headache/Fever/Mild Pain (1-3) Hydroxychloroquine Sulfate 200 0 mg 01/28/20 09:00 02/01/20 20:17 mg/ Simple Syrup 4 ml/ PER TUBE 8 ml Sterile Water 4 ml BID BOO Administration Enoxaparin Sodium 40 mg 01/28/20 09:00 02/02/20 08:30 Lovenox SC 40 mg 0900 BOO Administration Famotidine 20 mg 01/28/20 09:00 02/02/20 08:29 Pepcid SLOW IVP 20 mg Q12HR BOO Administration Azithromycin 500 mg/ Sodium 250 mls @ 250 mls/hr 01/28/20 21:00 02/01/20 20: 17 Chloride IVPB 250 mls 2100 BOO Administration Cefepime HCl 2 gm/ Sodium 100 mls @ 200 mls/hr 01/28/20 09:00 02/02/20 08:29 Chloride IVPB 100 mls Q12HR BOO Administration Potassium Chloride/Dextrose/Sod Cl 1,000 ml in 1,000 mls @ 0 mls/hr 01/29/20 11:14 01/30/20 20:09 D5 1/2 Ns W/10 Meq Kcl IV 1,000 mls .Q0M BOO Administration KVO Magnesium Sulfate 2 gm/ Device 50 mls @ 50 mls/hr 01/30/20 12:38 01/31/20 05: 55 IVPB 50 mls DAILYPRN PRN Administration MAG LEVEL < 2.0 Potassium Chloride 40 meq/ 270 mls @ 67.5 mls/hr 01/30/20 13:00 01/31/20 05: 54 Sodium Chloride IVPB 270 mls DAILYPRN PRN Administration K < 4.0 Lorazepam 100 mls @ 0 mls/hr 01/30/20 16:15 01/30/20 16:36 Ativan IVPB 100 mls INF BOO Administration Protocol Titrate Dexmedetomidine HCl 200 mcg/ 50 mls @ 0 mls/hr 02/01/20 09:45 02/02/20 07:36 Sodium Chloride IVPB 50 mls INF BOO Administration Protocol Per Protocol Midazolam HCl 100 mls @ 0 mls/hr 02/01/20 09:45 02/01/20 17:55 Versed IVPB 100 mls INF BOO Administration Protocol Titrate Lorazepam 2 mg 01/27/20 23:40 01/30/20 16:05 Ativan SLOW IVP 02/26/20 23:40 2 mg Q1H PRN Administration Breakthrough agitation Methylprednisolone Sodium Succinate 60 mg 01/31/20 09:00 02/02/20 08:30 Solu-Medrol IVP 60 mg DAILY BOO Administration - Exam General - other findings: intubated and sedated ENT: moist mucosa Heart: RRR, no murmur, no gallops, no rubs Respiratory: CTAB (anteriot and lateral torrez bilaterally), no wheezes, no rales, no ronchi Gastrointestinal: soft, non-distended, normal bowel sounds Extremities: 2+ LE edema Extremities - other findings: upper and lower extremities, pitting, equal Psychiatric - other findings: sedated Hosp A/P - Plan #COVID pneumonia -remains intabated and sedated; 18/450/40/8, RR 20s-30s breathing over vent, satting low to mid 90s; -CXR (02/01) is unchanged #hypervolemia -I/O positive in the past several days and CXR showing pulmonary congestion Plan: -ventilation management as per ICU -follow I/O closely; has been positive in the past several days; consider diuresing
[2020-02-02] MEDS: Morphine 2 MG/ML SYRINGE SLOW IVP PRN (09:54)
[2020-02-02] MEDS ORDERED: Sodium Chloride 0.9% 500 ML IVPB SCH (10:00)
[2020-02-02] MEDS: Hydroxychloroquine Sulfate 200 MG, Simple Syrup 4 ML, Water For Irrigation 4 ML PER TUBE SCH (11:02)
[2020-02-02] MEDS: fentaNYL Citrate/PF 2,000 MCG in Sodium Chloride 0.9% 60 ML IV SCH (12:42)
--- NOTE | 2020-02-02 15:49 | PRG ---
DATE OF SERVICE: 02/02/2020 Mckenzie drake had a lowish blood pressure earlier today, which responded to 500 mL fluid bolus. Her respiratory rates in the 20s, FiO2 still 40%, blood pressure this afternoon is 97/50, heart rates in the 60s oximetry is in the high 80s. Lungs, heart, and abdomen reported as unchanged. She is not having any ventilatory compliance issues. LABORATORY DATA: White count 14.8, hemoglobin 13.4, platelets 213. Electrolytes are unremarkable. C-reactive protein is still elevated at 19.6. IMPRESSION: 1. Pneumonia with respiratory failure. 2. COVID-19 positive. PLAN: Continue mechanical ventilation, slow weaning as tolerated. Job ID: [id number]
--- NOTE | 2020-02-02 17:27 | PDOC.PALPN ---
Palliative Progress Note - Subjective mechanically ventilated, sedated - Objective Vital Signs: Vital Signs - Most Recent Temp Pulse Resp BP Pulse Ox 98.1 F 62 24 H 151/82 H 90 L 02/02/20 16:00 02/02/20 15:10 02/02/20 16:00 02/02/20 02:03 02/02/20 08:00 - Physical Exam Constitutional: ill appearing HEENT: moist MMs Deviation from normal: mechanical ventilation Cardiovascular: RRR Gastrointestinal: incontinent Genitourinary: broussard catheter Deviation from normal: sedated - Assessment (1) Palliative care encounter Code(s): Z51.5 - ENCOUNTER FOR PALLIATIVE CARE Current Visit: Yes Status: Acute (2) 2019-nCoV acute respiratory disease Code(s): U07.1 - COVID-19; J06.9 - ACUTE UPPER RESPIRATORY INFECTION, UNSPECIFIED Current Visit: Yes Status: Acute (3) Acute respiratory failure with hypoxia Code(s): J96.01 - ACUTE RESPIRATORY FAILURE WITH HYPOXIA Current Visit: Yes Status: Acute (4) Hyperlipidemia Code(s): E78.5 - HYPERLIPIDEMIA, UNSPECIFIED Current Visit: Yes Status: Acute - Plan Plan: Reviewed records, spoke spoke with the twice through the day to offer emotional support. Reviewed status of his , and no current changes. Theraputic listening. Hope to transition to slow weaning as she is able to tolerate from mechanical ventilation. Palliative Care will continue to offer support as needed. [30] minutes spent on this encounter with >50% of the time in counseling and coordination of care. - ROS Non Response: due to endotracheal tube, due to mental status
[2020-02-03] MEDS: Lorazepam 2 MG/ML VIAL SLOW IVP PRN (02:14)
[2020-02-03 02:43] LABS: Actual Bicarbonate (HCO3a) 26.2 mEq/L (22-28); Base Excess (BEa) 1.4 mEq/L (-2.0 to +3.0); CO2 Tension 42.2 mmHg (35.0-45.0); Calcium, Ionized 1.21 mmol/L (1.12-1.30); Carboxyhemoglobin (COHb) 0.8 gm% (0.0-3.0); Hemoglobin (Hb) 13.3 g/dL (12.0-16.0); pH, Arterial 7.41 (7.35-7.45)
[2020-02-03 02:44] LABS: O2 Tension (PaO2), arterial 44.6 mmHg (> 70.0)
[2020-02-03 02:45] LABS: Puncture Site RRADIAL
[2020-02-03 04:24] LABS: Anion Gap 15 mmol/L (10-20); BUN (Urea Nitrogen) 40 mg/dL (9.8-20.1); Calc. Creatinine Clearance 115 mL/min (70-130); Calcium 7.7 mg/dL (7.8-10.44); Carbon Dioxide 18 mmol/L (23-31); Chloride 114 mmol/L (98-107); Estimated GFR-MDRD Greater than 90; Glucose 108 mg/dL (83-110); Sodium 142 mmol/L (136-145)
[2020-02-03] MEDS: methylPREDNISolone Sod Succ/PF 125 MG/2 ML VIAL IVP SCH (08:33)
[2020-02-03] MEDS: Enoxaparin Sodium 40 MG/0.4 ML SYRINGE SC SCH (08:36)
[2020-02-03] MEDS: Famotidine/PF 20 mg/2ml Vial SLOW IVP SCH ×2 (08:36→21:02)
[2020-02-03] MEDS: Acetaminophen 325 MG TAB PO PRN (08:47)
[2020-02-03] MEDS: Cefepime 2 GM in Sodium Chloride 0.9% 100 ML IVPB SCH ×2 (08:47→21:02)
[2020-02-03 09:15] LABS: Band 5 % (5-11); Hemoglobin 12.3 g/dL (12.0-16.0); Lymphocytes 3 % (21-51); MDiff Complete? YES; Mean Corpuscular HGB CONC 31.4 g/dL (32.0-36.0); Mean Corpuscular Hemoglobin 30.5 pg (27.0-31.0); Mean Platelet Volume 8.7 fL (7.4-10.4); Monocytes 1 % (0-10); Neutrophil 91 % (42-75); Platelet Count 186 thou/uL (130-400); Platelet Morphology Comment Appears Adequate; RBC Distribution Width 13.3 % (11.5-14.5); RBC Morphology Normal; Red Blood Cell (RBC) Count 4.03 mill/uL (4.20-5.40); White Blood Cell (WBC) Count 18.5 thou/uL (4.8-10.8)
[2020-02-03] MEDS ORDERED: Potassium Chloride 10 MEQ in Dextrose 5 %-0.45 % NaCl 1,000 ML IV SCH (09:15)
--- NOTE | 2020-02-03 09:20 | RAD ---
PORTABLE CHEST 1 VIEW: DATE: 02/03/2020. TIME: 5:21 AM. HISTORY: Respiratory failure. FINDINGS/IMPRESSION: No significant interval change is seen since the previous day's exam. POS: PAULINE
[2020-02-03] MEDS ORDERED: Enoxaparin Sodium 40 MG/0.4 ML SYRINGE SC SCH (10:00)
[2020-02-03] MEDS ORDERED: Albumin 25% 25 GM/100 ML BOT IVPB SCH (10:15)
[2020-02-03] MEDS: fentaNYL Citrate/PF 2,000 MCG in Sodium Chloride 0.9% 60 ML IV SCH (12:24)
[2020-02-03] MEDS ORDERED: Tocilizumab 400 MG in Sodium Chloride 0.9% 80 ML IV SCH (15:00)
--- NOTE | 2020-02-03 15:10 | PRG ---
DATE OF SERVICE: DISCUSSION: Continues to have waxing and waning gas exchange. Heart rates in the 70s, blood pressure 103/57, respiratory rates in the teens. Lungs, heart, and abdomen are unchanged. FiO2 is up to 60%. I have asked again the respiratory therapist to try to keep her FiO2 where her sats remain between 86 and 92, minimizing FiO2. White count is 18.5, hemoglobin 12.3, platelets 186. Sodium 142, potassium 5, chloride 114, bicarb 18, BUN 40, creatinine 0.61. IMPRESSION: Respiratory failure associated with pneumonia, associated with coronavirus disease-19. I discussed transferring her to [facility] for enrollment in an antiviral clinical trial. They are not taking transfers except from [facility] in [place], and the patient already in [facility]. We are looking at other therapeutic options, which . Discussed the above with the today at length. CRITICAL CARE TIME: 30 minutes. Job ID: [id number]
[2020-02-03] MEDS ORDERED: Sodium Chloride 0.9% 1,000 ML IV SCH (15:15)
--- NOTE | 2020-02-03 15:44 | PDOC.PALPN ---
Palliative Progress Note - Subjective Mechanically ventilated, sedated - Objective Vital Signs: Vital Signs - Most Recent Temp Pulse Resp BP Pulse Ox 100.0 F H 69 18 100/55 L 96 02/03/20 11:00 02/03/20 15:29 02/03/20 14:00 02/03/20 15:29 02/03/20 08:00 - Physical Exam Constitutional: encephalitic, ill appearing Deviation from normal: mechanical ventilation Gastrointestinal: incontinent Genitourinary: broussard catheter Deviation from normal: Sedated Deviation from normal: sedated Deviation from normal: encephalopathic/sedated - Assessment (1) Palliative care encounter Code(s): Z51.5 - ENCOUNTER FOR PALLIATIVE CARE Current Visit: Yes Status: Acute (2) 2019-nCoV acute respiratory disease Code(s): U07.1 - COVID-19; J06.9 - ACUTE UPPER RESPIRATORY INFECTION, UNSPECIFIED Current Visit: Yes Status: Acute (3) Acute respiratory failure with hypoxia Code(s): J96.01 - ACUTE RESPIRATORY FAILURE WITH HYPOXIA Current Visit: Yes Status: Acute (4) Hyperlipidemia Code(s): E78.5 - HYPERLIPIDEMIA, UNSPECIFIED Current Visit: Yes Status: Acute - Plan Plan: Reviewed documentation, lengthy conversation with Patient and son. Continued with emotional support and therapeutic listening. Suggested use of an IPod where family loads on their voices, music that would be familiar to the patient that we could play for her. Palliative Care to continue with family support. Please also refer to Marcia Berrios RN notes in note section [20] minutes spent on this encounter with >50% of the time in counseling and coordination of care. - ROS Non Response: due to endotracheal tube, due to mental status
--- NOTE | 2020-02-03 16:14 | PDOC.EVN ---
Event Note - Event Note Event Note: Avoided physical encounter to limit unnecessary exposure. Spoke with nursing staff regarding patient and appreciated notes from PCCM and palliative. Reviewed labs and imaging. will continue to follow
[2020-02-04 04:18] LABS: Anion Gap 7 mmol/L (10-20); BUN (Urea Nitrogen) 41 mg/dL (9.8-20.1); Calc. Creatinine Clearance 135 mL/min (70-130); Calcium 8.1 mg/dL (7.8-10.44); Carbon Dioxide 30 mmol/L (23-31); Chloride 112 mmol/L (98-107); Estimated GFR-MDRD Greater than 90; Glucose 119 mg/dL (83-110); Potassium 3.8 mmol/L (3.5-5.1); Sodium 145 mmol/L (136-145)
[2020-02-04 04:21] LABS: Band 6 % (5-11); Hemoglobin 10.4 g/dL (12.0-16.0); Lymphocytes 2 % (21-51); MDiff Complete? YES; Mean Corpuscular HGB CONC 32.5 g/dL (32.0-36.0); Mean Corpuscular Hemoglobin 31.4 pg (27.0-31.0); Mean Corpuscular Volume 96.6 fL (78.0-98.0); Mean Platelet Volume 9.2 fL (7.4-10.4); Monocytes 3 % (0-10); Neutrophil 89 % (42-75); Platelet Count 177 thou/uL (130-400); RBC Distribution Width 13.2 % (11.5-14.5); Red Blood Cell (RBC) Count 3.31 mill/uL (4.20-5.40); White Blood Cell (WBC) Count 12.6 thou/uL (4.8-10.8)
[2020-02-04 08:06] LABS: Actual Bicarbonate (HCO3a) 28.5 mEq/L (22-28); Base Excess (BEa) 2.8 mEq/L (-2.0 to +3.0); CO2 Tension 48.9 mmHg (35.0-45.0); Calcium, Ionized 1.23 mmol/L (1.12-1.30); Hemoglobin (Hb) 10.9 g/dL (12.0-16.0); Potassium - ABG Lab 3.63 mmol/L (3.70-5.30); pH, Arterial 7.38 (7.35-7.45)
[2020-02-04 08:15] LABS: O2 Tension (PaO2), arterial 49.2 mmHg (> 70.0)
[2020-02-04 08:16] LABS: ALV-art Gradient 246.175 (0-20); Puncture Site RRA
[2020-02-04] MEDS: Cefepime 2 GM in Sodium Chloride 0.9% 100 ML IVPB SCH ×2 (08:18→20:10)
[2020-02-04] MEDS: Enoxaparin Sodium 80 MG/0.8 ML SYRINGE SC SCH (08:19)
[2020-02-04] MEDS: Famotidine/PF 20 mg/2ml Vial SLOW IVP SCH ×2 (08:19→20:10)
[2020-02-04] MEDS: methylPREDNISolone Sod Succ/PF 125 MG/2 ML VIAL IVP SCH (08:19)
[2020-02-04] MEDS: Senokot 8.6 MG TAB PO SCH ×2 (08:20→20:10)
--- NOTE | 2020-02-04 08:36 | RAD ---
PORTABLE CHEST 1 VIEW: Date: 02/04/2020 Time: 0448 hours HISTORY: Respiratory failure. FINDINGS/IMPRESSION: Comparison made with exam of previous day. No significant interval changes are identified. POS: PAULINE
--- NOTE | 2020-02-04 10:28 | PDOC.HOSPP ---
- Subjective Encounter Date: 02/04/20 Encounter Time: 08:00 Subjective: overnight, palliative team involved due to worsening. D-dimer grossly elevated, severely lymphopenic, both of which have been associated with mortality. Poor prognosis. - Objective Vital Signs & Weight: Vital Signs (12 hours) Temp Pulse Resp BP 02/04/20 08:08 71 105/47 L 02/04/20 06:00 18 02/04/20 04:00 97.7 F 21 H 02/04/20 02:17 69 95/51 L 02/04/20 02:00 35 H 02/04/20 00:00 97.1 F L 18 Weight Admit Weight 188 lb Weight 198 lb 13.711 oz Most Recent Monitor Data Heart Rate from ECG 69 NIBP 101/41 NIBP BP-Mean 61 Respiration from ECG 20 SpO2 91 I&O: 02/03/20 02/04/20 02/05/20 06:59 06:59 06:59 Intake Total 2164 1971 Output Total 1180 1214 Balance 984 757 Result Diagrams: 02/04/20 03:41 02/04/20 03:41 Hospitalist ROS - Review of Systems ROS unobtainable: due to endotracheal tube - Medication Medications: Active Medications Generic Name Dose Route Start Last Admin Trade Name Freq PRN Reason Stop Dose Admin Acetaminophen 650 mg 01/27/20 23:28 02/03/20 08:47 Tylenol PO 650 mg Q4H PRN Administration Headache/Fever/Mild Pain (1-3) Enoxaparin Sodium 80 mg 02/04/20 09:00 02/04/20 08:19 Lovenox SC 80 mg 0900 BOO Administration Famotidine 20 mg 01/28/20 09:00 02/04/20 08:19 Pepcid SLOW IVP 20 mg Q12HR BOO Administration Cefepime HCl 2 gm/ Sodium 100 mls @ 200 mls/hr 01/28/20 09:00 02/04/20 08:18 Chloride IVPB 100 mls Q12HR BOO Administration Magnesium Sulfate 2 gm/ Device 50 mls @ 50 mls/hr 01/30/20 12:38 01/31/20 05: 55 IVPB 50 mls DAILYPRN PRN Administration MAG LEVEL < 2.0 Potassium Chloride 40 meq/ 270 mls @ 67.5 mls/hr 01/30/20 13:00 01/31/20 05: 54 Sodium Chloride IVPB 270 mls DAILYPRN PRN Administration K < 4.0 Dexmedetomidine HCl 200 mcg/ 50 mls @ 0 mls/hr 02/01/20 09:45 02/02/20 07:36 Sodium Chloride IVPB 50 mls INF BOO Administration Protocol Per Protocol Fentanyl Citrate 2,000 mcg/ 100 mls @ 0 mls/hr 02/02/20 10:14 02/03/20 12:24 Sodium Chloride IV 03/03/20 10:14 100 mls INF BOO Administration Protocol Per Protocol Midazolam HCl 100 mls @ 8 mls/hr 02/02/20 10:30 02/04/20 03:34 Versed IVPB 100 mls INF BOO Administration Protocol 8 MG/HR Sodium Chloride 1,000 mls @ 0 mls/hr 02/03/20 15:15 02/03/20 15:29 Normal Saline 0.9% IV 1,000 mls .Q0M BOO Administration KVO Lorazepam 2 mg 01/27/20 23:40 02/03/20 02:14 Ativan SLOW IVP 02/26/20 23:40 2 mg Q1H PRN Administration Breakthrough agitation Methylprednisolone Sodium Succinate 60 mg 01/31/20 09:00 02/04/20 08:19 Solu-Medrol IVP 60 mg DAILY BOO Administration Morphine Sulfate 2 mg 01/27/20 23:40 02/02/20 09:54 Morphine SLOW IVP 02/26/20 23:40 2 mg Q1H PRN Administration BREAKTHROUGH PAIN/Agitation Senna 1 tab 02/04/20 09:00 02/04/20 08:20 Senokot PO 1 tab BID BOO Administration - Exam General Appearance: ill appearing General - other findings: intubated and sedated Eye: PERRL Heart: RRR, no murmur, no gallops, no rubs Respiratory - other findings: shallow breathing, CTA b/l except rhonchi right anterior Gastrointestinal: soft, non-tender, non-distended, normal bowel sounds Extremities - other findings: anasarca Hosp A/P - Plan #COVID pneumonia -less HD stable and increasing sedation; grossly elevated ddimer and severe lymphopenia associated with mortality in COVID patients -palliative team onboard -CXR (02/03) is unchanged -Per PCCM, attempted transfer to [facility] but not accepting, may attempt other therapeutic options; At this point, would consider Remdesevir despite significant side effect profile; deferring to PCCM -Unfortunately, poor prognosis -palliative team onboard
[2020-02-04] MEDS: Lorazepam 2 MG/ML VIAL SLOW IVP PRN (11:55)
[2020-02-04] MEDS: Morphine 2 MG/ML SYRINGE SLOW IVP PRN (11:55)
[2020-02-04] MEDS: fentaNYL Citrate/PF 2,000 MCG in Sodium Chloride 0.9% 60 ML IV SCH (12:58)
--- NOTE | 2020-02-04 15:14 | PRG ---
DATE OF SERVICE: 02/04/2020 DISCUSSION: Ms. Harrington remains hemodynamically stable. OBJECTIVE: VITAL SIGNS: Blood pressure around 100 systolic, heart rate in the 80s. Airway pressures are not increased. LUNGS: Unchanged. HEART: Unchanged. ABDOMEN: Unchanged. EXTREMITIES: Unchanged. DATA: Chest radiograph shows diffuse infiltrates. Tocilizumab 400 mg was given last night. Her C-reactive protein, D-dimer, ferritin levels were drawn today. C-reactive protein and ferritin are elevated as expected. D-dimer is elevated. She is on adjusted dose of Lovenox. IMPRESSION: 1. Pneumonia. 2. COVID-19 infection. 3. Respiratory failure. 4. Encephalopathy. She will continue to be mechanically ventilated, sedated. Hopefully, we will start seeing some improvement. Critical care time 40 min. Job ID: [id number] MTDD
[2020-02-05 05:13] LABS: Anion Gap 10 mmol/L (10-20); BUN (Urea Nitrogen) 40 mg/dL (9.8-20.1); Calc. Creatinine Clearance 137 mL/min (70-130); Calcium 8.1 mg/dL (7.8-10.44); Carbon Dioxide 30 mmol/L (23-31); Chloride 109 mmol/L (98-107); Estimated GFR-MDRD Greater than 90; Glucose 112 mg/dL (83-110); Potassium 3.7 mmol/L (3.5-5.1); Sodium 145 mmol/L (136-145)
[2020-02-05 05:17] LABS: Band 5 % (5-11); Hemoglobin 10.3 g/dL (12.0-16.0); Hypochromia SLIGHT = 6-15 cells (100X) (0-5/hpf); Lymphocytes 4 % (21-51); MDiff Complete? YES; Mean Corpuscular HGB CONC 32.1 g/dL (32.0-36.0); Mean Corpuscular Hemoglobin 31.1 pg (27.0-31.0); Mean Corpuscular Volume 96.9 fL (78.0-98.0); Mean Platelet Volume 8.9 fL (7.4-10.4); Monocytes 4 % (0-10); Neutrophil 87 % (42-75); Platelet Count 233 thou/uL (130-400); Platelet Morphology Comment Appears Adequate; RBC Distribution Width 13.2 % (11.5-14.5); Red Blood Cell (RBC) Count 3.33 mill/uL (4.20-5.40); White Blood Cell (WBC) Count 9.9 thou/uL (4.8-10.8)
--- NOTE | 2020-02-05 05:29 | PRG ---
DATE OF SERVICE: 02/05/2020 SUBJECTIVE: Ms. Harrington's hemodynamics stabilized. OBJECTIVE: VITAL SIGNS: Blood pressure 113/54, heart rate 71, FiO2 is at 45%, and respiratory rates of 18. No change in her overall exam. LABORATORY DATA: Lab work was just drawn. IMPRESSION AND PLAN: 1. Pneumonia. 2. COVID positive. 3. Status post Plaquenil and Zithromax. 4. Status post administration of tocilizumab two nights ago. She will continue to be mechanically ventilated and sedated. Family is updated by me yesterday and Dr. Allen as well. Dr. Allen has a longstanding relationship with the family. Hopefully, she will continue to remain stable. CRITICAL CARE TIME: 30 minutes. Job ID: [id number]
[2020-02-05] MEDS: fentaNYL Citrate/PF 2,000 MCG in Sodium Chloride 0.9% 60 ML IV SCH (07:46)
--- NOTE | 2020-02-05 09:20 | PDOC.EVN ---
Event Note - Event Note Event Note: Reviewed patient's chart, agree with PCCM. Avoiding physical encounter to limit unnecessary exposure to COVID.
[2020-02-05] MEDS: Cefepime 2 GM in Sodium Chloride 0.9% 100 ML IVPB SCH ×2 (09:46→22:17)
[2020-02-05] MEDS: methylPREDNISolone Sod Succ/PF 125 MG/2 ML VIAL IVP SCH (09:48)
[2020-02-05] MEDS: Enoxaparin Sodium 80 MG/0.8 ML SYRINGE SC SCH (09:49)
[2020-02-05] MEDS: Senokot 8.6 MG TAB PO SCH ×2 (09:49→22:17)
[2020-02-05] MEDS: Famotidine/PF 20 mg/2ml Vial SLOW IVP SCH ×2 (09:49→22:17)
[2020-02-06] MEDS: fentaNYL Citrate/PF 2,000 MCG in Sodium Chloride 0.9% 60 ML IV SCH ×2 (03:03→22:18)
[2020-02-06 04:17] LABS: Anion Gap 14 mmol/L (10-20); BUN (Urea Nitrogen) 30 mg/dL (9.8-20.1); CRP (Inflammatory) 4.22 mg/dL (= or < 0.5); Calc. Creatinine Clearance 163 mL/min (70-130); Carbon Dioxide 23 mmol/L (23-31); Chloride 111 mmol/L (98-107); Estimated GFR-MDRD Greater than 90; Glucose 84 mg/dL (83-110); Potassium 4.5 mmol/L (3.5-5.1); Sodium 143 mmol/L (136-145)
[2020-02-06 06:22] LABS: Band 2 % (5-11); Hemoglobin 12.6 g/dL (12.0-16.0); Lymphocytes 14 % (21-51); MDiff Complete? YES; Mean Corpuscular HGB CONC 31.2 g/dL (32.0-36.0); Mean Corpuscular Hemoglobin 30.4 pg (27.0-31.0); Mean Corpuscular Volume 97.2 fL (78.0-98.0); Mean Platelet Volume 8.4 fL (7.4-10.4); Monocytes 3 % (0-10); Neutrophil 81 % (42-75); Platelet Count 276 thou/uL (130-400); Platelet Morphology Comment Appears Adequate; RBC Distribution Width 13.6 % (11.5-14.5); Red Blood Cell (RBC) Count 4.15 mill/uL (4.20-5.40); White Blood Cell (WBC) Count 10.5 thou/uL (4.8-10.8)
[2020-02-06] MEDS: Cefepime 2 GM in Sodium Chloride 0.9% 100 ML IVPB SCH ×2 (08:00→20:42)
[2020-02-06] MEDS: Enoxaparin Sodium 80 MG/0.8 ML SYRINGE SC SCH (08:01)
[2020-02-06] MEDS: Famotidine/PF 20 mg/2ml Vial SLOW IVP SCH ×2 (08:01→20:42)
[2020-02-06] MEDS: Senokot 8.6 MG TAB PO SCH ×2 (08:01→20:42)
[2020-02-06] MEDS: methylPREDNISolone Sod Succ/PF 125 MG/2 ML VIAL IVP SCH (08:01)
--- NOTE | 2020-02-06 09:40 | PRG ---
DATE OF SERVICE: 02/06/2020 CRITICAL CARE TIME: 30 minutes. SUBJECTIVE: The patient remains in respiratory failure, on mechanical ventilation in the CCU. OBJECTIVE: VITAL SIGNS: Temperature 96.8, pulse 68, blood pressure 81/46, 24-hour intake 1372, output 1370. NEUROLOGICAL: She is very sedated. HEENT: Unremarkable. NECK: No adenopathy or JVD. LUNGS: Coarse rhonchi. CARDIAC: S1, S2. Regular. ABDOMEN: Soft. EXTREMITIES: No overt edema. DIAGNOSTIC STUDIES: She has not had a chest x-ray done in the last 48 hours. However, her last one showed only mild infiltrative changes bilaterally. LABORATORY DATA: White blood cell count 10.5, hematocrit 40, and platelet count 276. Sodium 143, potassium 4.5, chloride 111, CO2 of 23, BUN 30, creatinine 0.4, and glucose 84. Ferritin is 926. C-reactive protein is 4.2, both of those are on a downward track. ASSESSMENT: 1. Acute respiratory failure, requiring mechanical ventilation. 2. Coronavirus disease-19 pneumonia. PLAN: 1. I will attempt to slowly decrease her FiO2 and her PEEP today and see if she can tolerate. 2. She is status post administration of IL-6 inhibitor 2 nights ago. 3. Consider prone ventilation if she desaturates on the current settings. Job ID: [id number]
--- NOTE | 2020-02-06 14:55 | PDOC.BPN ---
- Brief Progress Note The patient remains sedated and on mechanical ventilation. Sepsis secondary to COVID-19 pneumonia. Status post IL 6 inhibitor trial. Continue management per critical care team. The case was discussed with Dr. Sams. The patient was not examined to limit staff exposure.
[2020-02-07 04:43] LABS: Band 4 % (5-11); Hemoglobin 10.9 g/dL (12.0-16.0); Hypochromia SLIGHT = 6-15 cells (100X) (0-5/hpf); Lymphocytes 8 % (21-51); MDiff Complete? YES; Mean Corpuscular Hemoglobin 30.7 pg (27.0-31.0); Mean Corpuscular Volume 95.8 fL (78.0-98.0); Mean Platelet Volume 8.8 fL (7.4-10.4); Monocytes 2 % (0-10); Neutrophil 86 % (42-75); Platelet Count 269 thou/uL (130-400); Platelet Morphology Comment Appears Adequate; RBC Distribution Width 13.5 % (11.5-14.5); Red Blood Cell (RBC) Count 3.56 mill/uL (4.20-5.40); White Blood Cell (WBC) Count 8.1 thou/uL (4.8-10.8)
[2020-02-07 04:48] LABS: Anion Gap 10 mmol/L (10-20); BUN (Urea Nitrogen) 31 mg/dL (9.8-20.1); Calc. Creatinine Clearance 157 mL/min (70-130); Calcium 7.8 mg/dL (7.8-10.44); Carbon Dioxide 31 mmol/L (23-31); Chloride 105 mmol/L (98-107); Estimated GFR-MDRD Greater than 90; Glucose 91 mg/dL (83-110); Potassium 3.7 mmol/L (3.5-5.1); Sodium 142 mmol/L (136-145)
[2020-02-07 07:37] LABS: Actual Bicarbonate (HCO3a) 33.5 mEq/L (22-28); Base Excess (BEa) 8.5 mEq/L (-2.0 to +3.0); CO2 Tension 47.7 mmHg (35.0-45.0); Calcium, Ionized 1.19 mmol/L (1.12-1.30); Carboxyhemoglobin (COHb) 0.8 gm% (0.0-3.0); Hemoglobin (Hb) 12.7 g/dL (12.0-16.0); Potassium - ABG Lab 3.64 mmol/L (3.70-5.30); pH, Arterial 7.46 (7.35-7.45)
[2020-02-07 07:41] LABS: O2 Tension (PaO2), arterial 56.7 mmHg (> 70.0)
[2020-02-07 07:42] LABS: Puncture Site RRA
[2020-02-07 07:43] LABS: ALV-art Gradient 168.875 (0-20)
[2020-02-07] MEDS ORDERED: Rocuronium Bromide 10 MG/ML (10ML VIAL) ONE (08:05)
[2020-02-07] MEDS: Cefepime 2 GM in Sodium Chloride 0.9% 100 ML IVPB SCH (08:12)
[2020-02-07] MEDS: methylPREDNISolone Sod Succ/PF 125 MG/2 ML VIAL IVP SCH (08:13)
[2020-02-07] MEDS: Famotidine/PF 20 mg/2ml Vial SLOW IVP SCH ×2 (08:13→20:48)
[2020-02-07] MEDS: Enoxaparin Sodium 80 MG/0.8 ML SYRINGE SC SCH (08:14)
--- NOTE | 2020-02-07 08:48 | RAD ---
PORTABLE CHEST ONE VIEW: HISTORY: Pneumonia. FINDINGS: NG tube and endotracheal tube remain in place. Again noted are patchy bilateral ground glass opacity and interstitial changes throughout both lungs. No significant pleural effusion. No new confluent lob ar pneumonia. IMPRESSION: Persistent bilateral interstitial and alveolar and ground glass opacity changes throughout both lungs . POS: SJDI
--- NOTE | 2020-02-07 09:49 | PRG ---
DATE OF SERVICE: Thirty-five minutes critical care time. SUBJECTIVE: The patient remains intubated on mechanical ventilation with no acute changes overnight. OBJECTIVE: VITAL SIGNS: Temperature is 98.8, pulse 62, blood pressure 88/60, and O2 saturation 93%, currently on a Versed and fentanyl drip HEENT: Unremarkable. NECK: No adenopathy or JVD. LUNGS: Coarse breath sounds with tenacious secretions. ABDOMEN: Soft and nontender. EXTREMITIES: Edematous. LABORATORY DATA: White blood cell count 8.1, hematocrit 34.1, and platelet count 269. ABG; pH 7.46, pCO2 of 47, and pO2 of 56. A-a gradient down to 168 from 246. Sodium 142, potassium 3.7, chloride 105, CO2 of 31, BUN 31, creatinine 0.5, and glucose 91. Ferritin is 926. Chest x-ray shows no substantial change. ASSESSMENT: Acute respiratory failure secondary to COVID-19 pneumonia. She is 3 nights status post IL-6 inhibitor infusion. PLAN: We are going ahead and try her from . I will perform bronchoscopy because she has had tenacious secretions. She will continue on the IV methylprednisolone. I will go ahead and stop the cefepime since she has had 7 days of that. She will require intermittent while in the prone position. Job ID: [id number]
[2020-02-07] MEDS: Senokot 8.6 MG TAB PO SCH ×2 (09:55→20:48)
[2020-02-07] MEDS: Vecuronium 10 MG VIAL IVP PRN ×2 (09:55→16:35)
--- NOTE | 2020-02-07 14:02 | OP ---
DATE OF PROCEDURE: 02/07/2020 PROCEDURE: Bronchoscopy. PREOPERATIVE DIAGNOSIS: Mucus plugging. POSTOPERATIVE DIAGNOSIS: Mucus plugging. ANESTHESIA: The patient was sedated and paralyzed for the procedure. DESCRIPTION OF PROCEDURE: An Ambu 2.0 bronchoscope was brought into the patient's room. Adapter was placed on the endotracheal tube. The patient has been chemically paralyzed prior to the procedure. Scope was inserted into the airway through the adapter. Significant findings included bloody secretions present within the trachea and within the right lower lobe. The remainder of the airways were clear. These secretions were lavaged with saline until clear. She tolerated the procedure well. Job ID: [id number]
[2020-02-07] MEDS: Diabetic Tussin 200 MG/10 ML UDCUP PER TUBE SCH ×2 (18:00→23:46)
[2020-02-07] MEDS: fentaNYL Citrate/PF 2,000 MCG in Sodium Chloride 0.9% 60 ML IV SCH (19:04)
[2020-02-08] MEDS: Diabetic Tussin 200 MG/10 ML UDCUP PER TUBE SCH ×4 (04:50→23:01)
[2020-02-08] MEDS: Bacteriostatic Water 30 ML VIAL FS PRN ×2 (04:50→23:01)
[2020-02-08] MEDS: Vecuronium 10 MG VIAL IVP PRN ×5 (04:50→23:01)
[2020-02-08 04:59] LABS: Band 9 % (5-11); Hemoglobin 10.8 g/dL (12.0-16.0); Lymphocytes 8 % (21-51); MDiff Complete? YES; Mean Corpuscular HGB CONC 31.8 g/dL (32.0-36.0); Mean Corpuscular Hemoglobin 30.7 pg (27.0-31.0); Mean Corpuscular Volume 96.6 fL (78.0-98.0); Mean Platelet Volume 8.7 fL (7.4-10.4); Metamyelocyte 1 % (0-0); Monocytes 2 % (0-10); Neutrophil 80 % (42-75); Platelet Count 287 thou/uL (130-400); Platelet Morphology Comment Appears Adequate; RBC Distribution Width 14.1 % (11.5-14.5); Red Blood Cell (RBC) Count 3.52 mill/uL (4.20-5.40); White Blood Cell (WBC) Count 10.7 thou/uL (4.8-10.8)
[2020-02-08 05:07] LABS: Anion Gap 9 mmol/L (10-20); BUN (Urea Nitrogen) 33 mg/dL (9.8-20.1); Calc. Creatinine Clearance 166 mL/min (70-130); Calcium 7.8 mg/dL (7.8-10.44); Carbon Dioxide 31 mmol/L (23-31); Chloride 105 mmol/L (98-107); Estimated GFR-MDRD Greater than 90; Glucose 108 mg/dL (83-110); Potassium 3.6 mmol/L (3.5-5.1); Sodium 141 mmol/L (136-145)
[2020-02-08 07:46] LABS: Actual Bicarbonate (HCO3a) 32.3 mEq/L (22-28); CO2 Tension 54.3 mmHg (35.0-45.0); Calcium, Ionized 1.18 mmol/L (1.12-1.30); Carboxyhemoglobin (COHb) 0.8 gm% (0.0-3.0); Hemoglobin (Hb) 12.6 g/dL (12.0-16.0); O2 Tension (PaO2), arterial 72.5 mmHg (> 70.0); Potassium - ABG Lab 3.55 mmol/L (3.70-5.30); pH, Arterial 7.39 (7.35-7.45)
[2020-02-08 08:04] LABS: Puncture Site RRA
[2020-02-08 08:05] LABS: ALV-art Gradient 144.825 (0-20)
[2020-02-08] MEDS: Famotidine/PF 20 mg/2ml Vial SLOW IVP SCH ×2 (08:23→19:23)
[2020-02-08] MEDS: Enoxaparin Sodium 80 MG/0.8 ML SYRINGE SC SCH (08:23)
[2020-02-08] MEDS: Senokot 8.6 MG TAB PO SCH ×2 (08:23→19:24)
[2020-02-08] MEDS: methylPREDNISolone Sod Succ/PF 125 MG/2 ML VIAL IVP SCH (08:23)
--- NOTE | 2020-02-08 09:20 | RAD ---
PORTABLE CHEST: HISTORY: Pneumonia, COVID assessment. COMPARISON: Prior day's exam. FINDINGS: Heart size appears slightly enlarged. Endotracheal and NG tubes are in satisfactory position. There are some differences in technique, but the ground-glass opacity in the right upper lobe may be minim ally increased as compared to the prior exam. Some of this change is probably related to less promin ent inspiration. There is also slight increased density along the aortic arch and left base. IMPRESSION: Persistent ground-glass opacity has not improved and appear possibly slightly worsened as compared to the previous study. POS: SJDI
--- NOTE | 2020-02-08 13:05 | PQF ---
SHERIE GILMAN MOEZ [id number] [facility]-C12 [id number] CLINICAL DOCUMENTATION IMPROVEMENT CLARIFICATION FORM: ICD-10 Updated PLEASE DO AN ADDENDUM TO THE PROGRESS NOTE WITH ANY DOCUMENTATION UPDATES OR ADDITIONS AND CARRY THROUGH TO DC SUMMARY. THANK YOU. DATE: 02/08/2020 ATTN: DR. Griselda ISSA Please exercise your independent, professional judgment in responding to the clarification form. Clinical indicators are provided on the bottom of this form for your review Diagnosis: SEPSIS Present on Admission (POA): [ > ] Yes [ ] No [ ] Unable to determine For continuity of documentation, please document condition throughout progress notes and discharge summary. Thank You. CLINICAL INDICATORS - SIGNS / SYMPTOMS / LABS/ RESULTS AND LOCATION IN MR TEMP 02/02 101.5 01/27 WBC 11.2 01/31 WBC 15.5 02/01 WBC 14.8 02/02 WBC 18.5 02/03 WBC 12.6 02/06 PN (ALNAZEER) SEPSIS SECONDARY TO COVID 19- PNEUMONIA RISK: COVID 19, PNEUMONIA ( PN/ALNAZEER) 02/05 HYPOXIC RESP FAILURE (H&P/JENNIFER) 01/27 TREATMENTS: MECHANICAL VENTILATION ( 01/27 - PRESENT) ZITHROMAX IV ( 01/28 - 01/31) MAXIPIME IV ( 01/28 - 01/28) THANK YOU! JEANNETTE (This form is maintained as a part of the permanent medical record) 2014 [employer] All Rights Reserved [email or web address]
[2020-02-08] MEDS: fentaNYL Citrate/PF 2,000 MCG in Sodium Chloride 0.9% 60 ML IV SCH (15:21)
--- NOTE | 2020-02-08 20:20 | PRG ---
DATE OF SERVICE: 02/08/2020 SUBJECTIVE: Ms. Harrington appears to have stabilized over the weekend. Her C- reactive protein is down from 21 to 4. Hopefully, this is a result of the IL-6 inhibitor. Ferritin is not surprisingly still elevated. Her FiO2 is at 40%. OBJECTIVE: VITAL SIGNS: Stable. GENERAL: She is not tachycardic. LUNGS: Unchanged. ABDOMEN: Unchanged. LABORATORY DATA: Sodium 141, potassium 3.6, chloride 105, bicarb 31, BUN 33, creatinine 0.44. White count 10.7, hemoglobin 10.8, platelets 287. PH 7.39, pCO2 is 54, pO2 is 72. IMPRESSION: Respiratory failure associated with COVID pneumonia. PLAN: Continue supportive care. Critical care time is 35 minutes. Job ID: [id number] MTDD
[2020-02-09] MEDS: Vecuronium 10 MG VIAL IVP PRN (00:29)
[2020-02-09] MEDS: Bacteriostatic Water 30 ML VIAL FS PRN (00:29)
[2020-02-09 05:01] LABS: Anion Gap 10 mmol/L (10-20); BUN (Urea Nitrogen) 26 mg/dL (9.8-20.1); Calc. Creatinine Clearance 156 mL/min (70-130); Carbon Dioxide 32 mmol/L (23-31); Chloride 100 mmol/L (98-107); Estimated GFR-MDRD Greater than 90; Glucose 105 mg/dL (83-110); Potassium 3.7 mmol/L (3.5-5.1); Sodium 138 mmol/L (136-145)
[2020-02-09 05:14] LABS: Band 1 % (5-11); Hemoglobin 11.6 g/dL (12.0-16.0); Lymphocytes 8 % (21-51); MDiff Complete? YES; Mean Corpuscular Hemoglobin 30.7 pg (27.0-31.0); Mean Corpuscular Volume 95.9 fL (78.0-98.0); Mean Platelet Volume 8.5 fL (7.4-10.4); Monocytes 5 % (0-10); Neutrophil 86 % (42-75); Platelet Count 308 thou/uL (130-400); Platelet Morphology Comment Appears Adequate; RBC Distribution Width 14.3 % (11.5-14.5); RBC Morphology Normal; Red Blood Cell (RBC) Count 3.78 mill/uL (4.20-5.40); White Blood Cell (WBC) Count 12.7 thou/uL (4.8-10.8)
[2020-02-09] MEDS: Diabetic Tussin 200 MG/10 ML UDCUP PER TUBE SCH ×3 (05:39→17:01)
[2020-02-09 07:23] LABS: Actual Bicarbonate (HCO3a) 32.7 mEq/L (22-28); Base Excess (BEa) 7.6 mEq/L (-2.0 to +3.0); CO2 Tension 48.4 mmHg (35.0-45.0); Calcium, Ionized 1.18 mmol/L (1.12-1.30); Carboxyhemoglobin (COHb) 0.4 gm% (0.0-3.0); Hemoglobin (Hb) 11.3 g/dL (12.0-16.0); Potassium - ABG Lab 3.64 mmol/L (3.70-5.30); pH, Arterial 7.45 (7.35-7.45)
[2020-02-09 07:36] LABS: Puncture Site LRA
[2020-02-09] MEDS: Famotidine/PF 20 mg/2ml Vial SLOW IVP SCH ×2 (08:15→21:30)
[2020-02-09] MEDS: methylPREDNISolone Sod Succ/PF 125 MG/2 ML VIAL IVP SCH (08:15)
[2020-02-09] MEDS: Senokot 8.6 MG TAB PO SCH ×2 (08:16→21:30)
[2020-02-09] MEDS: Enoxaparin Sodium 80 MG/0.8 ML SYRINGE SC SCH (08:18)
[2020-02-09] MEDS: fentaNYL Citrate/PF 2,000 MCG in Sodium Chloride 0.9% 60 ML IV SCH (09:19)
--- NOTE | 2020-02-09 09:28 | RAD ---
CHEST 1 VIEW PORTABLE: HISTORY: Followup pneumonia. COMPARISON: 02/08/2020. FINDINGS: Life support tubes in place. Persistent bilateral patchy interstitial and alveolar opacity changes t hroughout both lungs. No new lobar confluent process. IMPRESSION: Persistent abnormal alveolar, interstitial, and ground-glass opacity changes throughout both lungs. Continued short-term followup. POS: RRE
--- NOTE | 2020-02-09 15:52 | PRG ---
DATE OF SERVICE: 02/09/2020 SUBJECTIVE: Ms. Harrington appears to be continuing to clinically improve. OBJECTIVE: VITAL SIGNS: Heart rate is in the 70s, respiratory rate is per mechanical ventilation, FiO2 is down to 40%, but her oximetry is in the high 90s. We have turned her PEEP down to 8. Respiratory rate is 12, and we will turn this down to 8 this afternoon. Remainder of her exam is unchanged. LABORATORY DATA: White count 12.7, hemoglobin 11.5, and platelets 308,000. Electrolytes are unremarkable other than bicarb of 32 and creatinine is 0.47. IMPRESSION: Respiratory failure associated with COVID-19 pneumonia. Today, pH is 7.45, CO2 is 48, pO2 is 73. She appears to clinically continue to improve. It is not clear when she will be weaned and extubated, but we are getting closer. CRITICAL CARE TIME: 30 minutes. Job ID: [id number]
[2020-02-10] MEDS: Diabetic Tussin 200 MG/10 ML UDCUP PER TUBE SCH ×4 (00:19→17:50)
[2020-02-10] MEDS: fentaNYL Citrate/PF 2,000 MCG in Sodium Chloride 0.9% 60 ML IV SCH ×2 (03:26→20:12)
[2020-02-10 05:08] LABS: Anion Gap 13 mmol/L (10-20); BUN (Urea Nitrogen) 22 mg/dL (9.8-20.1); Calc. Creatinine Clearance 185 mL/min (70-130); Calcium 7.9 mg/dL (7.8-10.44); Carbon Dioxide 26 mmol/L (23-31); Chloride 103 mmol/L (98-107); Estimated GFR-MDRD Greater than 90; Glucose 95 mg/dL (83-110); Potassium 4.5 mmol/L (3.5-5.1); Sodium 137 mmol/L (136-145)
[2020-02-10 06:15] LABS: Eosinophils 1 % (0-10); Hemoglobin 11.1 g/dL (12.0-16.0); Lymphocytes 18 % (21-51); MDiff Complete? YES; Mean Corpuscular HGB CONC 32.5 g/dL (32.0-36.0); Mean Corpuscular Hemoglobin 31.5 pg (27.0-31.0); Mean Corpuscular Volume 97.1 fL (78.0-98.0); Mean Platelet Volume 8.3 fL (7.4-10.4); Monocytes 5 % (0-10); Neutrophil 76 % (42-75); Platelet Count 285 thou/uL (130-400); Platelet Morphology Comment Appears Adequate; RBC Distribution Width 14.6 % (11.5-14.5); Red Blood Cell (RBC) Count 3.52 mill/uL (4.20-5.40); White Blood Cell (WBC) Count 11.7 thou/uL (4.8-10.8)
[2020-02-10 07:40] LABS: Actual Bicarbonate (HCO3a) 31.8 mEq/L (22-28); CO2 Tension 51.6 mmHg (35.0-45.0); Calcium, Ionized 1.18 mmol/L (1.12-1.30); Carboxyhemoglobin (COHb) 1.1 gm% (0.0-3.0); Hemoglobin (Hb) 11.3 g/dL (12.0-16.0); O2 Tension (PaO2), arterial 72.5 mmHg (> 70.0); Potassium - ABG Lab 3.58 mmol/L (3.70-5.30); pH, Arterial 7.41 (7.35-7.45)
--- NOTE | 2020-02-10 07:40 | RAD ---
PORTABLE CHEST: DATE: 02/10/2020. PROVIDED CLINICAL HISTORY: Pneumonia. FINDINGS: Comparison 02/09/2020. Interval increase in airspace disease of the left lung base. Additional signi ficant interval change with respect to the prior examination is not apparent. IMPRESSION: As above. POS: LAVERNE
[2020-02-10 08:09] LABS: Puncture Site RRA
[2020-02-10] MEDS: Enoxaparin Sodium 80 MG/0.8 ML SYRINGE SC SCH (08:19)
[2020-02-10] MEDS: Famotidine/PF 20 mg/2ml Vial SLOW IVP SCH ×2 (08:19→20:12)
[2020-02-10] MEDS: methylPREDNISolone Sod Succ/PF 125 MG/2 ML VIAL IVP SCH (08:20)
[2020-02-10] MEDS: Senokot 8.6 MG TAB PO SCH ×2 (08:20→20:12)
--- NOTE | 2020-02-10 12:17 | PRG ---
DATE OF SERVICE: 02/10/2020 SUBJECTIVE: Mckenzie Harrington continues to be hemodynamically stable. Her gas exchange continues to improve. Respiratory rate about 8 L a minute. FiO2 is at 40. We turned her pressure support down to 5 this morning. PEEP is at turned down to 5. IMV is turned down to 4. OBJECTIVE: VITAL SIGNS: Blood pressure 93/53, heart rate 58. LUNGS: Otherwise unchanged. HEART: Otherwise unchanged. ABDOMEN: Otherwise unchanged. LABORATORY DATA: White count 11.7, hemoglobin 11.1, platelets 285. Sodium 137, potassium 4.5, chloride 103, bicarb 26, BUN 22, creatinine is less than 0.4. IMPRESSION: Respiratory failure associated with COVID pneumonia, clinically improving. I am concerned about muscle weakness. Normally, we would recommend a tracheostomy at this point if she did not have an adequate spontaneous breathing trial. We will continue ventilatory support, and hopefully, she will be weanable successfully in a few days. Critical care time 35 min. Job ID: [id number] MTDD
--- NOTE | 2020-02-10 18:23 | PDOC.HOSPP ---
- Subjective Encounter Date: 02/10/20 - Objective Vital Signs & Weight: Vital Signs (12 hours) Temp Pulse Resp Pulse Ox 02/10/20 16:00 98.3 F 32 H 02/10/20 14:41 79 02/10/20 14:00 18 02/10/20 12:00 98.2 F 14 02/10/20 11:07 59 L 02/10/20 10:00 14 02/10/20 08:00 98.7 F 13 02/10/20 07:44 59 L 02/10/20 07:37 97 Weight Admit Weight 188 lb Weight 205 lb 14.588 oz Most Recent Monitor Data Heart Rate from ECG 72 NIBP 108/58 NIBP BP-Mean 74 Respiration from ECG 16 SpO2 92 I&O: 02/09/20 02/10/20 02/11/20 06:59 06:59 06:59 Intake Total 1465 1832.8 87.7 Output Total 1255 2090 635 Balance 210 -257.2 -547.3 Result Diagrams: 02/10/20 05:49 02/10/20 03:04 Hospitalist ROS - Review of Systems ROS unobtainable: due to endotracheal tube - Medication Medications: Active Medications Generic Name Dose Route Start Last Admin Trade Name Freq PRN Reason Stop Dose Admin Acetaminophen 650 mg 01/27/20 23:28 02/03/20 08:47 Tylenol PO 650 mg Q4H PRN Administration Headache/Fever/Mild Pain (1-3) Enoxaparin Sodium 80 mg 02/04/20 09:00 02/10/20 08:19 Lovenox SC 80 mg 0900 BOO Administration Famotidine 20 mg 01/28/20 09:00 02/10/20 08:19 Pepcid SLOW IVP 20 mg Q12HR BOO Administration Guaifenesin 200 mg 02/07/20 18:00 02/10/20 17:50 Robitussin Sf PER TUBE 200 mg Q6HR BOO Administration Magnesium Sulfate 2 gm/ Device 50 mls @ 50 mls/hr 01/30/20 12:38 01/31/20 05: 55 IVPB 50 mls DAILYPRN PRN Administration MAG LEVEL < 2.0 Potassium Chloride 40 meq/ 270 mls @ 67.5 mls/hr 01/30/20 13:00 01/31/20 05: 54 Sodium Chloride IVPB 270 mls DAILYPRN PRN Administration K < 4.0 Dexmedetomidine HCl 200 mcg/ 50 mls @ 0 mls/hr 02/01/20 09:45 02/02/20 07:36 Sodium Chloride IVPB 50 mls INF BOO Administration Protocol Per Protocol Fentanyl Citrate 2,000 mcg/ 100 mls @ 0 mls/hr 02/02/20 10:14 02/10/20 03:26 Sodium Chloride IV 03/03/20 10:14 100 mls INF BOO Administration Protocol Per Protocol Midazolam HCl 100 mls @ 8 mls/hr 02/02/20 10:30 02/10/20 16:11 Versed IVPB 100 mls INF BOO Administration Protocol 8 MG/HR Sodium Chloride 1,000 mls @ 0 mls/hr 02/03/20 15:15 02/03/20 15:29 Normal Saline 0.9% IV 1,000 mls .Q0M BOO Administration KVO Methylprednisolone Sodium Succinate 60 mg 01/31/20 09:00 02/10/20 08:20 Solu-Medrol IVP 60 mg DAILY BOO Administration Senna 1 tab 02/04/20 09:00 02/10/20 08:20 Senokot PO 1 tab BID BOO Administration Sodium Chloride 10 ml 02/07/20 09:00 02/10/20 08:20 Flush - Normal Saline IVF 10 ml Q12HR BOO Administration Sterile Water 2 ml 01/30/20 18:58 02/09/20 00:29 Bacteriostatic Water FS 2 ml PRN PRN Administration RECONSTITUTION Vecuronium [place] 10 mg 02/07/20 08:39 02/09/20 00:29 Norcuron IVP 10 mg Q30MIN PRN Administration Agitation - Exam General - other findings: PE deffered to limit staff exposure to COVID 19 Hosp A/P (1) Acute respiratory failure with hypoxia Code(s): J96.01 - ACUTE RESPIRATORY FAILURE WITH HYPOXIA Status: Acute (2) 2019-nCoV acute respiratory disease Code(s): U07.1 - COVID-19; J06.9 - ACUTE UPPER RESPIRATORY INFECTION, UNSPECIFIED Status: Acute (3) Hyperlipidemia Code(s): E78.5 - HYPERLIPIDEMIA, UNSPECIFIED Status: Acute - Plan COVID-19 Pneumonia. Remains on the vent. Requiring less PEEP. Ventilator management per pulmonology.
[2020-02-11] MEDS: Diabetic Tussin 200 MG/10 ML UDCUP PER TUBE SCH ×4 (00:10→18:34)
[2020-02-11 04:18] LABS: Anion Gap 13 mmol/L (10-20); BUN (Urea Nitrogen) 23 mg/dL (9.8-20.1); Calc. Creatinine Clearance 157 mL/min (70-130); Calcium 8.3 mg/dL (7.8-10.44); Carbon Dioxide 27 mmol/L (23-31); Chloride 102 mmol/L (98-107); Estimated GFR-MDRD Greater than 90; Glucose 96 mg/dL (83-110); Potassium 4.1 mmol/L (3.5-5.1); Sodium 138 mmol/L (136-145)
[2020-02-11 05:41] LABS: Hemoglobin 12.6 g/dL (12.0-16.0); Mean Corpuscular HGB CONC 32.1 g/dL (32.0-36.0); Mean Corpuscular Hemoglobin 31.4 pg (27.0-31.0); Mean Corpuscular Volume 97.7 fL (78.0-98.0); Mean Platelet Volume 8.3 fL (7.4-10.4); Platelet Count 320 thou/uL (130-400); RBC Distribution Width 14.8 % (11.5-14.5); Red Blood Cell (RBC) Count 4.03 mill/uL (4.20-5.40); White Blood Cell (WBC) Count 13.5 thou/uL (4.8-10.8)
[2020-02-11 05:56] LABS: Band 1 % (5-11); Lymphocytes 21 % (21-51); Monocytes 1 % (0-10); Neutrophil 77 % (42-75)
[2020-02-11 06:03] LABS: MDiff Complete? YES
--- NOTE | 2020-02-11 07:58 | RAD ---
PORTABLE CHEST: DATE: 02/11/2020. PROVIDED CLINICAL HISTORY: Pneumonia. FINDINGS: Comparison 02/10/2020. Significant interval change with respect to the prior examination is not appar ent. IMPRESSION: As above. POS: LAVERNE
[2020-02-11] MEDS: Senokot 8.6 MG TAB PO SCH ×2 (08:04→20:16)
[2020-02-11] MEDS: Bacteriostatic Water 30 ML VIAL FS PRN (08:04)
[2020-02-11] MEDS: Famotidine/PF 20 mg/2ml Vial SLOW IVP SCH ×2 (08:04→20:15)
[2020-02-11] MEDS: methylPREDNISolone Sod Succ/PF 125 MG/2 ML VIAL IVP SCH (08:04)
[2020-02-11] MEDS: Enoxaparin Sodium 80 MG/0.8 ML SYRINGE SC SCH (08:04)
[2020-02-11] MEDS: fentaNYL Citrate/PF 2,000 MCG in Sodium Chloride 0.9% 60 ML IV SCH (12:40)
--- NOTE | 2020-02-11 16:57 | PRG ---
DATE OF SERVICE: 02/11/2020 SUBJECTIVE: Mckenzie Harrington is still encephalopathic. We are trying to wean down her sedation. We are switching her from Versed hopefully to Precedex. I have added Seroquel at bedtime. Hopefully, we will see resolution of her encephalopathy. Exam overall is unchanged. LABORATORY DATA: White count 11.7, hemoglobin 11.1, platelets 285. Sodium 138, potassium 4.1, chloride 102, bicarb 27, BUN 23, creatinine 0.47. IMPRESSION: Respiratory failure associated with pneumonia, secondary to COVID- 19. If she was not encephalopathic, as I explained to the today, she would be weaned and extubated at this point. We are hoping that her encephalopathy will gradually improve. Continue mechanical ventilation for now. Critical care time 35 min. Job ID: [id number] MTDD
[2020-02-12] MEDS: Diabetic Tussin 200 MG/10 ML UDCUP PER TUBE SCH ×5 (00:45→23:43)
[2020-02-12 04:38] LABS: Anion Gap 12 mmol/L (10-20); BUN (Urea Nitrogen) 19 mg/dL (9.8-20.1); Calc. Creatinine Clearance 143 mL/min (70-130); Calcium 8.7 mg/dL (7.8-10.44); Carbon Dioxide 32 mmol/L (23-31); Chloride 101 mmol/L (98-107); Estimated GFR-MDRD Greater than 90; Glucose 87 mg/dL (83-110); Potassium 4.3 mmol/L (3.5-5.1); Sodium 141 mmol/L (136-145)
[2020-02-12 04:55] LABS: Band 1 % (5-11); Eosinophils 1 % (0-10); Hemoglobin 13.3 g/dL (12.0-16.0); Lymphocytes 25 % (21-51); MDiff Complete? YES; Mean Corpuscular HGB CONC 31.9 g/dL (32.0-36.0); Mean Corpuscular Hemoglobin 30.7 pg (27.0-31.0); Mean Corpuscular Volume 96.1 fL (78.0-98.0); Monocytes 6 % (0-10); Neutrophil 67 % (42-75); Platelet Count 311 thou/uL (130-400); RBC Distribution Width 14.7 % (11.5-14.5); Red Blood Cell (RBC) Count 4.32 mill/uL (4.20-5.40); White Blood Cell (WBC) Count 12.4 thou/uL (4.8-10.8)
--- NOTE | 2020-02-12 08:11 | RAD ---
PORTABLE CHEST: Date: 02/12/2020 PROVIDED CLINICAL HISTORY: Pneumonia. FINDINGS: Comparison with 02/11/2020. Significant interval change with respect to the prior examination is not apparent. IMPRESSION: As above. POS: LAVERNE
--- NOTE | 2020-02-12 08:50 | PRG ---
DATE OF SERVICE: 02/12/2020 SUBJECTIVE: Mckenzie Gray is hemodynamically stable. Her Versed drip has been weaned off. She is still on Precedex. She is not following commands. OBJECTIVE: VITAL SIGNS: Respiratory rates in the 30s. Respiratory rate to tidal volume ratio suggests that extubation. Heart rate is 90, blood pressure 146/83, oximetry is 96. FiO2 has been decreasing . If she was awake and alert and appeared comfortable, then we could extubate her. LUNGS: Unchanged. HEART: Unchanged. ABDOMEN: Unchanged. LABORATORY DATA: White count 12.4, hemoglobin 13.3, platelets 311. She only has 1% bands on her peripheral smear. Electrolytes are normal. BUN 23, creatinine 0.47. IMPRESSION: Respiratory failure secondary to COVID-19, slowly clinically improving. I think she will end up needing a tracheostomy. Chest radiograph is unchanged today. I have recommended an endotracheal tube aspirate for COVID-19. I would hope that she might be negative at this point, if so, we could proceed with a tracheostomy next week. Critical care time 30 min. Job ID: [id number] MTDD
[2020-02-12] MEDS: Enoxaparin Sodium 80 MG/0.8 ML SYRINGE SC SCH (09:41)
[2020-02-12] MEDS: methylPREDNISolone Sod Succ/PF 125 MG/2 ML VIAL IVP SCH (09:41)
[2020-02-12] MEDS: Famotidine/PF 20 mg/2ml Vial SLOW IVP SCH ×2 (09:41→20:33)
[2020-02-12] MEDS: Senokot 8.6 MG TAB PO SCH ×2 (09:41→20:33)
[2020-02-12] MEDS: fentaNYL Citrate/PF 2,000 MCG in Sodium Chloride 0.9% 60 ML IV SCH (18:18)
[2020-02-13 04:52] LABS: Anion Gap 14 mmol/L (10-20); BUN (Urea Nitrogen) 23 mg/dL (9.8-20.1); Calc. Creatinine Clearance 159 mL/min (70-130); Calcium 8.2 mg/dL (7.8-10.44); Carbon Dioxide 25 mmol/L (23-31); Chloride 103 mmol/L (98-107); Estimated GFR-MDRD Greater than 90; Glucose 108 mg/dL (83-110); Potassium 4.1 mmol/L (3.5-5.1); Sodium 138 mmol/L (136-145)
[2020-02-13 04:54] LABS: Band 7 % (5-11); Hemoglobin 12.3 g/dL (12.0-16.0); Lymphocytes 23 % (21-51); MDiff Complete? YES; Mean Corpuscular HGB CONC 32.9 g/dL (32.0-36.0); Mean Corpuscular Hemoglobin 31.3 pg (27.0-31.0); Mean Platelet Volume 8.4 fL (7.4-10.4); Monocytes 2 % (0-10); Neutrophil 68 % (42-75); Platelet Count 243 thou/uL (130-400); RBC Distribution Width 14.7 % (11.5-14.5); Red Blood Cell (RBC) Count 3.94 mill/uL (4.20-5.40)
[2020-02-13] MEDS: Diabetic Tussin 200 MG/10 ML UDCUP PER TUBE SCH ×4 (05:40→23:37)
--- NOTE | 2020-02-13 08:08 | RAD ---
CHEST ONE VIEW: Indication: History of pneumonia. Comparison: 02-12-2020 FINDINGS: The patchy airspace opacities within both lungs are stable appearing. Small bilateral pleural effusio ns, left greater than right, are stable appearing. ET tube, and gastric catheter are unchanged. No pn eumothorax is evident. IMPRESSION: Stable examination of the chest when compared to the prior day, 02-12-2020. POS: BH
[2020-02-13] MEDS: Enoxaparin Sodium 80 MG/0.8 ML SYRINGE SC SCH (09:02)
[2020-02-13] MEDS: Senokot 8.6 MG TAB PO SCH ×2 (09:02→20:10)
[2020-02-13] MEDS: methylPREDNISolone Sod Succ/PF 125 MG/2 ML VIAL IVP SCH (09:02)
[2020-02-13] MEDS: Famotidine/PF 20 mg/2ml Vial SLOW IVP SCH ×2 (09:02→20:09)
[2020-02-13] MEDS ORDERED: Cefepime 1 GM in Sodium Chloride 0.9% 100 ML IVPB SCH (10:00)
--- NOTE | 2020-02-13 10:06 | PRG ---
DATE OF SERVICE: 02/13/2020 SUBJECTIVE: Mckenzie Harrington remains in the ICU, intubated on the vent. OBJECTIVE: VITAL SIGNS: Temperature 97. Saturations are 96%, blood pressure 100/59, respirations 18, pulse 80. I's and O's, even. CHEST: No wheezing or crackles. CARDIAC: Normal S1 and S2. No gallops. ABDOMEN: No masses. DIAGNOSTIC STUDIES: X-ray still shows diffuse pulmonary infiltrates. White count 14,000. She had a serology for coronavirus obtained yesterday, still pending. IMPRESSION: 1. Respiratory failure, acute respiratory distress syndrome. 2. Obesity. PLAN: She is on steroids, planning for trach next week. May empirically start on some antibiotics. Awaiting the trach. One-half hour critical time. Job ID: [id number]
[2020-02-13 13:50] LABS: Actual Bicarbonate (HCO3a) 31.6 mEq/L (22-28); Base Excess (BEa) 7.4 mEq/L (-2.0 to +3.0); Calcium, Ionized 1.14 mmol/L (1.12-1.30); Hemoglobin (Hb) 13.1 g/dL (12.0-16.0); O2 Tension (PaO2), arterial 78.3 mmHg (> 70.0); Potassium - ABG Lab 3.76 mmol/L (3.70-5.30); pH, Arterial 7.48 (7.35-7.45)
[2020-02-13 13:51] LABS: Puncture Site RR
--- NOTE | 2020-02-13 19:36 | PDOC.EVN ---
Event Note - Event Note Event Note: Per nursing staff, patient not doing well. She is still intubated, there is discussion about possibly doing a trach. Repeat COVID test pending. Patient is not waking up off of sedation Urine output is 30/hour Physical exam: patient intubated, not examined fully to limit provider exposure Chest x ray 02/12: stable opacities bilaterally, some pleural effusions #COVID pneumonia #Acute hypoxic respiratory failure from pneumonia , bacterial vs viral -WBC up to 14, started on IV cefepime, IV steroids per pulmonary, HTN - hold outpatient meds
[2020-02-13] MEDS: Cefepime 1 GM in Sodium Chloride 0.9% 100 ML IVPB SCH (20:09)
[2020-02-14] MEDS: fentaNYL Citrate/PF 2,000 MCG in Sodium Chloride 0.9% 60 ML IV SCH (02:27)
[2020-02-14] MEDS: Diabetic Tussin 200 MG/10 ML UDCUP PER TUBE SCH ×3 (04:51→16:24)
[2020-02-14 06:21] LABS: Hemoglobin 12.4 g/dL (12.0-16.0); Mean Corpuscular HGB CONC 31.2 g/dL (32.0-36.0); Mean Corpuscular Hemoglobin 30.6 pg (27.0-31.0); Mean Platelet Volume 8.3 fL (7.4-10.4); Platelet Count 278 thou/uL (130-400); Red Blood Cell (RBC) Count 4.06 mill/uL (4.20-5.40); White Blood Cell (WBC) Count 11.8 thou/uL (4.8-10.8)
[2020-02-14 06:23] LABS: Band 1 % (5-11); Eosinophils 1 % (0-10); Lymphocytes 21 % (21-51); MDiff Complete? YES; Monocytes 5 % (0-10); Neutrophil 72 % (42-75)
[2020-02-14 06:34] LABS: Anion Gap 12 mmol/L (10-20); BUN (Urea Nitrogen) 25 mg/dL (9.8-20.1); Calc. Creatinine Clearance 147 mL/min (70-130); Calcium 8.1 mg/dL (7.8-10.44); Carbon Dioxide 24 mmol/L (23-31); Chloride 103 mmol/L (98-107); Estimated GFR-MDRD Greater than 90; Glucose 116 mg/dL (83-110); Potassium 3.9 mmol/L (3.5-5.1); Sodium 135 mmol/L (136-145)
--- NOTE | 2020-02-14 07:29 | RAD ---
CHEST 1 VIEW: INDICATION: History of pneumonia. COMPARISON: Prior exam dated 02/13/2020 at 5:44 a.m. IMPRESSION: ET tube and gastric catheter are unchanged. Bilateral airspace opacities are similar-appearing. Sma ll bilateral pleural effusions, left greater than right are stable. Heart size is at upper limits of normal. No pneumothorax is evident. POS: BH
[2020-02-14 07:30] LABS: Actual Bicarbonate (HCO3a) 28.1 mEq/L (22-28); Calcium, Ionized 1.16 mmol/L (1.12-1.30); Carboxyhemoglobin (COHb) 0.8 gm% (0.0-3.0); Hemoglobin (Hb) 12.4 g/dL (12.0-16.0); O2 Tension (PaO2), arterial 77.5 mmHg (> 70.0); Potassium - ABG Lab 3.43 mmol/L (3.70-5.30); pH, Arterial 7.46 (7.35-7.45)
[2020-02-14 07:45] LABS: Puncture Site RRA
[2020-02-14] MEDS: Famotidine/PF 20 mg/2ml Vial SLOW IVP SCH ×2 (09:00→20:43)
[2020-02-14] MEDS: Enoxaparin Sodium 80 MG/0.8 ML SYRINGE SC SCH (09:01)
[2020-02-14] MEDS: methylPREDNISolone Sod Succ/PF 125 MG/2 ML VIAL IVP SCH (09:01)
[2020-02-14] MEDS: Cefepime 1 GM in Sodium Chloride 0.9% 100 ML IVPB SCH ×2 (09:07→20:42)
[2020-02-14] MEDS: Senokot 8.6 MG TAB PO SCH ×2 (09:07→20:43)
--- NOTE | 2020-02-14 09:09 | PRG ---
DATE OF SERVICE: 02/14/2020 SUBJECTIVE: Mckenzie Harrington this morning is in the ICU. OBJECTIVE: VITAL SIGNS: Pulse is 56, temperature is 99, blood pressure 106/53, respirations 18, saturations are 90%. CHEST: Decreased breath sounds. No wheezing. No crackles. CARDIAC: Sinus tachycardia. ABDOMEN: Soft. LABORATORY DATA: PO2 is 77, pCO2 is 40, pH is 7.46, rate of 14. White count is 11,000. Lytes are normal. X-ray still shows diffuse pulmonary infiltrates, though it appears it may be a little bit better today. IMPRESSION: Respiratory failure, bilateral bronchopneumonia, Coronavirus positive. PLAN: Continue vent support. She is not weanable. In the process of trying to obtain a Coronavirus serology, still not back. Continue steroids, neb treatments, and antibiotics. TIME SPENT: One-half hour of Critical Care time. Job ID: [id number]
--- NOTE | 2020-02-14 15:16 | PDOC.EVN ---
Event Note - Event Note Event Note: Patient continues to do poorly, intubated. Unable to tolerate weaning of ventilator. Not responsive and doesn't wake up much off sedation. Has adequate urine output Gen: patient intubated, sedated CV: sinus tachycardia Lungs: no wheezing per nurse Ext: no edema Labs; coronavirus pending Imaging: small bilateral effusions R> L This is 74 year old female with COVID pneumonia continue IV cefepime and steroids - will add IV vancomycin given that she has been intubated for > 48 hours
[2020-02-14] MEDS: Vancomycin 1 GM in Premix Bag 1 BAG IVPB SCH (16:22)
[2020-02-15] MEDS: Diabetic Tussin 200 MG/10 ML UDCUP PER TUBE SCH ×5 (00:18→22:26)
[2020-02-15] MEDS: fentaNYL Citrate/PF 2,000 MCG in Sodium Chloride 0.9% 60 ML IV SCH (00:19)
[2020-02-15] MEDS: Vancomycin 1 GM in Premix Bag 1 BAG IVPB SCH (03:35)
[2020-02-15] MEDS ORDERED: Albumin 25% 25 GM/100 ML BOT IVPB SCH (04:21)
[2020-02-15] MEDS ORDERED: Albumin 5% 0 ML ONE (04:24)
[2020-02-15] MEDS ORDERED: Albumin 5% 250 ML ONE (04:26)
[2020-02-15] MEDS ORDERED: Sodium Chloride 0.9% 500 ML IV SCH (04:30)
[2020-02-15 04:31] LABS: Anion Gap 11 mmol/L (10-20); BUN (Urea Nitrogen) 24 mg/dL (9.8-20.1); Calc. Creatinine Clearance 164 mL/min (70-130); Calcium 7.9 mg/dL (7.8-10.44); Carbon Dioxide 27 mmol/L (23-31); Chloride 103 mmol/L (98-107); Estimated GFR-MDRD Greater than 90; Glucose 118 mg/dL (83-110); Sodium 137 mmol/L (136-145)
[2020-02-15] MEDS ORDERED: Albumin 5% 500 ML ONE (04:31)
[2020-02-15 05:23] LABS: Band 3 % (5-11); Eosinophils 4 % (0-10); Hemoglobin 11.3 g/dL (12.0-16.0); Lymphocytes 10 % (21-51); MDiff Complete? YES; Mean Corpuscular HGB CONC 31.6 g/dL (32.0-36.0); Mean Corpuscular Volume 98.2 fL (78.0-98.0); Mean Platelet Volume 8.7 fL (7.4-10.4); Monocytes 6 % (0-10); Neutrophil 77 % (42-75); Platelet Count 227 thou/uL (130-400); RBC Distribution Width 14.9 % (11.5-14.5); Red Blood Cell (RBC) Count 3.66 mill/uL (4.20-5.40); White Blood Cell (WBC) Count 11.6 thou/uL (4.8-10.8)
[2020-02-15 08:09] LABS: Actual Bicarbonate (HCO3a) 29.8 mEq/L (22-28); Analyzer IN Cardio ER; Base Excess (BEa) 4.6 mEq/L (-2.0 to +3.0); CO2 Tension 46.6 mmHg (35.0-45.0); Calcium, Ionized 1.16 mmol/L (1.12-1.30); Carboxyhemoglobin (COHb) 0.1 gm% (0.0-3.0); Hemoglobin (Hb) 11.5 g/dL (12.0-16.0); Potassium - ABG Lab 3.45 mmol/L (3.70-5.30); pH, Arterial 7.42 (7.35-7.45)
[2020-02-15] MEDS: Senokot 8.6 MG TAB PO SCH ×2 (08:42→19:59)
[2020-02-15] MEDS: Famotidine 20 MG TAB PER TUBE SCH ×2 (08:42→19:59)
[2020-02-15] MEDS: methylPREDNISolone Sod Succ/PF 125 MG/2 ML VIAL IVP SCH (08:42)
[2020-02-15] MEDS: Enoxaparin Sodium 80 MG/0.8 ML SYRINGE SC SCH (08:42)
[2020-02-15] MEDS: Cefepime 1 GM in Sodium Chloride 0.9% 100 ML IVPB SCH ×2 (08:47→19:58)
[2020-02-15 08:48] LABS: Puncture Site L.R.
--- NOTE | 2020-02-15 09:24 | RAD ---
PORTABLE CHEST: DATE: 02/15/2020. PROVIDED CLINICAL HISTORY: Pneumonia. FINDINGS: Comparison 02/14/2020. Significant interval change with respect to the prior examination is not appar ent. IMPRESSION: As above. POS: LAVERNE
--- NOTE | 2020-02-15 13:27 | PDOC.EVN ---
Event Note - Event Note Event Note: Spoke to nursing staff. Patient intubated, does not respond off sedation. Waiting for repeat COVId test to come back. She does have adequate urine output. No seizures Physical exam: tidal volumes only 120 on the vent. CV: RRR, no murmurs Lungs: diminished breath sounds Abd: not distended Ext; No edema Plan for family meeting once COVID results come back per pulmonary. On cefepime , vanc added 02/13. WIll add flagyl for anaerobic coverage
[2020-02-15] MEDS: metroNIDAZOLE 500 MG in Premix Bag 1 BAG IVPB SCH ×2 (14:17→21:20)
--- NOTE | 2020-02-15 15:13 | PRG ---
DATE OF SERVICE: 02/15/2020 SUBJECTIVE: Ms. Harrington is mechanically ventilated. Her ventilatory rate was turned up over the weekend because of weakness and a high respiratory rate. OBJECTIVE: VITAL SIGNS: Respiratory rates in the 20s now, heart rate is 100, FiO2 is 50, blood pressure 150/78. LUNGS: Unchanged. HEART: Unchanged. ABDOMEN: Unchanged. LABORATORY DATA: White count 11.6, hemoglobin 11.3, platelets 227. Electrolytes are unremarkable. COVID serology from Saturday still pending. IMPRESSION: COVID pneumonia with respiratory failure, now almost 3 weeks into this illness. Hopefully, her serology will be negative and we could proceed with tracheostomy and PEG placement. Chest x-rays unchanged. Job ID: [id number]
[2020-02-15 20:38] LABS: Vancomycin, Trough 4.9 ug/mL
[2020-02-15] MEDS ORDERED: Vancomycin 1 GM in Premix Bag 1 BAG IVPB SCH (21:00)
[2020-02-15] MEDS ORDERED: Sodium Chloride 0.9% 500 ML IVPB SCH (21:30)
[2020-02-16 04:23] LABS: Anion Gap 13 mmol/L (10-20); BUN (Urea Nitrogen) 27 mg/dL (9.8-20.1); Calc. Creatinine Clearance 150 mL/min (70-130); Calcium 8.4 mg/dL (7.8-10.44); Carbon Dioxide 24 mmol/L (23-31); Chloride 105 mmol/L (98-107); Eosinophils 1 % (0-10); Estimated GFR-MDRD Greater than 90; Glucose 103 mg/dL (83-110); Hemoglobin 11.9 g/dL (12.0-16.0); Lymphocytes 22 % (21-51); MDiff Complete? YES; Mean Corpuscular HGB CONC 32.5 g/dL (32.0-36.0); Mean Corpuscular Hemoglobin 31.9 pg (27.0-31.0); Mean Corpuscular Volume 98.2 fL (78.0-98.0); Mean Platelet Volume 8.4 fL (7.4-10.4); Monocytes 5 % (0-10); Neutrophil 72 % (42-75); Platelet Count 251 thou/uL (130-400); Potassium 3.7 mmol/L (3.5-5.1); RBC Distribution Width 15.3 % (11.5-14.5); Red Blood Cell (RBC) Count 3.74 mill/uL (4.20-5.40); Sodium 138 mmol/L (136-145); White Blood Cell (WBC) Count 13.9 thou/uL (4.8-10.8)
[2020-02-16] MEDS: Diabetic Tussin 200 MG/10 ML UDCUP PER TUBE SCH ×4 (05:09→23:03)
[2020-02-16] MEDS: metroNIDAZOLE 500 MG in Premix Bag 1 BAG IVPB SCH ×3 (05:09→21:13)
[2020-02-16] MEDS: Potassium Chloride 40 MEQ in Sodium Chloride 0.9% 250 ML 250 ML IVPB PRN (06:03)
--- NOTE | 2020-02-16 08:00 | PRG ---
DATE OF SERVICE: 02/16/2020 SUBJECTIVE: Ms. Harrington is clinically stable. OBJECTIVE: VITAL SIGNS: Heart rate in the 70s, blood pressure 136/65. LUNGS: Unchanged. HEART: Unchanged. ABDOMEN: Unchanged. LABORATORY DATA: White count 13.9, hemoglobin 11.9, platelets 251. Electrolytes: Sodium 130, potassium 3.7, chloride 105, bicarb 24, BUN 27, creatinine 0.47. Chest radiograph still shows diffuse infiltrates bilaterally. IMPRESSION: 1. COVID pneumonia with respiratory failure. 2. If COVID screen is negative,then Tracheostomy and PEG will be the next step. It is unlikely she still has viable virus, but for an operative procedure, the anesthesia people and the surgeons would prefer that she be COVID screen negative. When she has trach and PEG, then she can be referred to a long-term acute care hospital. Job ID: [id number]
--- NOTE | 2020-02-16 08:06 | RAD ---
PORTABLE CHEST: DATE: 02/16/2020. PROVIDED CLINICAL HISTORY: Pneumonia. FINDINGS: Comparison 02/15/2020. Significant interval change with respect to the prior examination is not appar ent. IMPRESSION: As above. POS: LAVERNE
[2020-02-16] MEDS: Senokot 8.6 MG TAB PO SCH ×2 (08:24→20:17)
[2020-02-16] MEDS: Enoxaparin Sodium 80 MG/0.8 ML SYRINGE SC SCH (08:24)
[2020-02-16] MEDS: Famotidine 20 MG TAB PER TUBE SCH ×2 (08:24→20:17)
[2020-02-16] MEDS: Cefepime 1 GM in Sodium Chloride 0.9% 100 ML IVPB SCH ×2 (08:24→20:17)
[2020-02-16] MEDS: methylPREDNISolone Sod Succ/PF 125 MG/2 ML VIAL IVP SCH (08:24)
[2020-02-16] MEDS: fentaNYL Citrate/PF 2,000 MCG in Sodium Chloride 0.9% 60 ML IV SCH (08:30)
--- NOTE | 2020-02-16 16:26 | PDOC.EVN ---
Event Note - Event Note Event Note: The patient is still intubated with low tidal volumes. She is opening her eyes and tracking. Still awaiting repeat COVID swab, repeat sent today per nursing Exam: vitals stable, on ventilator, tidal volumes 120's Gen: patient with eyes open and moving around the room. Follows minimal commands Lungs: unchanged Abd: nondistended Ext: no edema Acute hypoxic resp failure from COVID pneumonia - repeat COVID testing pending. Plan for PEG and trach afterwards - was on Cefepime, then vanc added, and flagyl added 02/14. Vanc discontinued - also on IV steroids Leukocytosis - WBC trending up to 13, continue to monitor. No fevers Anemia - stable, will monitor
[2020-02-16 17:13] LABS: SARS-CoV-2 MS2 Positive; SARS-CoV-2 N Gene Positive; SARS-CoV-2 S Gene Positive; SARS-CoV-2 orf1ab Positive
[2020-02-17] MEDS: fentaNYL Citrate/PF 2,000 MCG in Sodium Chloride 0.9% 60 ML IV SCH (03:16)
[2020-02-17 04:15] LABS: Anion Gap 10 mmol/L (10-20); BUN (Urea Nitrogen) 22 mg/dL (9.8-20.1); Calc. Creatinine Clearance 154 mL/min (70-130); Calcium 8.6 mg/dL (7.8-10.44); Carbon Dioxide 30 mmol/L (23-31); Chloride 102 mmol/L (98-107); Estimated GFR-MDRD Greater than 90; Glucose 105 mg/dL (83-110); Potassium 3.8 mmol/L (3.5-5.1); Sodium 138 mmol/L (136-145)
[2020-02-17] MEDS: metroNIDAZOLE 500 MG in Premix Bag 1 BAG IVPB SCH ×3 (05:07→20:30)
[2020-02-17] MEDS: Diabetic Tussin 200 MG/10 ML UDCUP PER TUBE SCH ×4 (05:07→23:15)
[2020-02-17 05:17] LABS: Band 10 % (5-11); Eosinophils 5 % (0-10); Hemoglobin 11.3 g/dL (12.0-16.0); Lymphocytes 18 % (21-51); MDiff Complete? YES; Mean Corpuscular HGB CONC 32.6 g/dL (32.0-36.0); Mean Corpuscular Volume 98.2 fL (78.0-98.0); Mean Platelet Volume 8.7 fL (7.4-10.4); Monocytes 2 % (0-10); Neutrophil 65 % (42-75); Platelet Count 207 thou/uL (130-400); RBC Distribution Width 15.1 % (11.5-14.5); Red Blood Cell (RBC) Count 3.53 mill/uL (4.20-5.40); White Blood Cell (WBC) Count 11.6 thou/uL (4.8-10.8)
[2020-02-17] MEDS: Potassium Chloride 40 MEQ in Sodium Chloride 0.9% 250 ML 250 ML IVPB PRN (06:21)
[2020-02-17] MEDS: methylPREDNISolone Sod Succ/PF 125 MG/2 ML VIAL IVP SCH (07:11)
[2020-02-17] MEDS: Enoxaparin Sodium 80 MG/0.8 ML SYRINGE SC SCH (07:12)
[2020-02-17] MEDS: Cefepime 1 GM in Sodium Chloride 0.9% 100 ML IVPB SCH ×2 (07:12→20:18)
[2020-02-17] MEDS: Famotidine 20 MG TAB PER TUBE SCH ×2 (07:13→20:17)
[2020-02-17] MEDS: Senokot 8.6 MG TAB PO SCH ×2 (07:13→20:17)
--- NOTE | 2020-02-17 08:59 | RAD ---
SINGLE VIEW OF THE CHEST: COMPARISON: 02/16/2020. HISTORY: Pneumonia. FINDINGS: A single view of the chest shows a normal size cardiomediastinal silhouette. The endotracheal tube a nd NG tube are unchanged in position. Opacity is seen in the left lung base which may represent atel ectasis or an infiltrate. IMPRESSION: Left basilar atelectasis versus infiltrate. POS: EAA
--- NOTE | 2020-02-17 12:36 | PDOC.EVN ---
Event Note - Event Note Event Note: Patient is the same. Per nursing when weaned off sedation she didn't tolerate it well and RR went up and patient got agitated. Repeat COVID + . Physical exam: patient appears sedate Lungs: unchanged CV: mildly tachycardic Abdomen: does not appear distended Ext: no edema Labs: WBC improved Acute hypoxic resp failure from COVID pneumonia - repeat COVID testing positive. Trach and PEg canceled - on cefepime and flagyl currently. Vanc discontinued - also on IV steroids Leukocytosis - WBC trending up down to 11 Anemia - stable, will monitor
[2020-02-17] MEDS: Haloperidol Lactate 5 MG/ML VIAL IM SCH ×3 (13:12→20:18)
[2020-02-17] MEDS: Lorazepam 2 MG/ML VIAL SLOW IVP SCH ×3 (13:12→20:29)
--- NOTE | 2020-02-17 16:35 | PRG ---
DATE OF SERVICE: 02/17/2020 Mckenzie Harrington had a positive COVID nasal swab and a positive tracheobronchial swab. She said at point where she is far enough into this illness, it is unlikely that she , but it is also important to help protect the healthcare workers since this is not definitive knowledge, so her tracheostomy is on hold. We have changed her sedation today. We are hoping that with different sedation, she will become more cooperative during the day. We will slowly wean her opioids, so that she does not have an opioid withdrawal. Her family plans to visit her tomorrow. We will decrease ventilatory support during the day and turned it up in the evening, likely would do if she had a tracheostomy. Her white count is 11.6, hemoglobin 11.3. Her electrolytes are unremarkable. It is not felt that convalescent plasma would add much to her care given how far she is into this hospitalization and illness. Her illness started in the first week of January. Critical care time, 30 minutes. Job ID: [id number]
[2020-02-18] MEDS: Lorazepam 2 MG/ML VIAL SLOW IVP SCH ×6 (00:25→20:34)
[2020-02-18] MEDS: Haloperidol Lactate 5 MG/ML VIAL IM SCH ×6 (00:25→20:34)
[2020-02-18] MEDS: fentaNYL Citrate/PF 2,000 MCG in Sodium Chloride 0.9% 60 ML IV SCH (01:24)
[2020-02-18 04:15] LABS: Anion Gap 8 mmol/L (10-20); BUN (Urea Nitrogen) 21 mg/dL (9.8-20.1); Calc. Creatinine Clearance 155 mL/min (70-130); Calcium 8.4 mg/dL (7.8-10.44); Carbon Dioxide 32 mmol/L (23-31); Chloride 101 mmol/L (98-107); Estimated GFR-MDRD Greater than 90; Glucose 117 mg/dL (83-110); Potassium 3.7 mmol/L (3.5-5.1); Sodium 137 mmol/L (136-145)
[2020-02-18 04:22] LABS: Eosinophils 6 % (0-10); Hemoglobin 11.2 g/dL (12.0-16.0); Lymphocytes 21 % (21-51); MDiff Complete? YES; Mean Corpuscular HGB CONC 31.6 g/dL (32.0-36.0); Mean Corpuscular Hemoglobin 31.4 pg (27.0-31.0); Mean Corpuscular Volume 99.4 fL (78.0-98.0); Mean Platelet Volume 8.8 fL (7.4-10.4); Monocytes 1 % (0-10); Neutrophil 69 % (42-75); Platelet Count 173 thou/uL (130-400); RBC Distribution Width 15.3 % (11.5-14.5); Reactive Lymphocytes 3 % (0-10); Red Blood Cell (RBC) Count 3.55 mill/uL (4.20-5.40); White Blood Cell (WBC) Count 9.3 thou/uL (4.8-10.8)
[2020-02-18] MEDS: metroNIDAZOLE 500 MG in Premix Bag 1 BAG IVPB SCH ×3 (05:19→20:33)
[2020-02-18] MEDS: Potassium Chloride 40 MEQ in Sodium Chloride 0.9% 250 ML 250 ML IVPB PRN (05:19)
[2020-02-18] MEDS: Diabetic Tussin 200 MG/10 ML UDCUP PER TUBE SCH ×3 (05:19→17:15)
[2020-02-18] MEDS: Cefepime 1 GM in Sodium Chloride 0.9% 100 ML IVPB SCH ×2 (08:30→20:32)
[2020-02-18] MEDS: Enoxaparin Sodium 80 MG/0.8 ML SYRINGE SC SCH (08:32)
[2020-02-18] MEDS: Senokot 8.6 MG TAB PO SCH ×2 (08:32→20:33)
[2020-02-18] MEDS: methylPREDNISolone Sod Succ 40 MG VIAL IVP SCH (08:35)
[2020-02-18] MEDS: Famotidine 20 MG TAB PER TUBE SCH ×2 (08:40→20:33)
--- NOTE | 2020-02-18 09:51 | RAD ---
SINGLE VIEW OF THE CHEST: COMPARISON: 02/17/2020. HISTORY: Pneumonia. FINDINGS: A single view of the chest shows an enlarged but stable cardiomediastinal silhouette. Endotracheal t ube and NG tube are unchanged in position. There are stable multifocal infiltrates. IMPRESSION: Stable exam. POS: KULDEEPA
--- NOTE | 2020-02-18 11:28 | PRG ---
DATE OF SERVICE: 02/18/2020 Mckenzie Harrington is unchanged. Intake and output are -149. Blood pressure is 105/56, 9 o'clock this morning, heart rate in the 60s, respiratory rates in the 20s. We were still turning down mechanical ventilation during the day, turning it up in the evening. We will order other COVID screen in the morning. Once she screens negative, then hopefully Anesthesia and Surgery can proceed with a tracheostomy and a PEG. Job ID: [id number]
--- NOTE | 2020-02-18 14:23 | PDOC.EVN ---
Event Note - Event Note Event Note: THe patient opens her eyes and tracks some per nursing. Still COVId positive. Repeat COVID test sent today by nursing so she can get trach and PEG. Patient does not tolerate weaning off sedation much Gen: patient opens eyes spontaneously, intubated Lungs: UnchangeD CV: RRR Abd: not distended Ext: no edema Acute hypoxic resp failure from COVID pneumonia - repeat COVID testing positive. - on cefepime and flagyl currently. Vanc discontinued - also on IV steroids - consider remdesivir? - plan for two COVID to be negative, then proceed with trach and peg Leukocytosis - resolved Anemia - stable, will monitor
[2020-02-19] MEDS: Diabetic Tussin 200 MG/10 ML UDCUP PER TUBE SCH ×4 (00:38→16:40)
[2020-02-19] MEDS: Lorazepam 2 MG/ML VIAL SLOW IVP SCH ×7 (00:38→20:57)
[2020-02-19] MEDS: Haloperidol Lactate 5 MG/ML VIAL IM SCH ×6 (00:38→20:56)
[2020-02-19 04:25] LABS: Band 2 % (5-11); Eosinophils 1 % (0-10); Hemoglobin 10.6 g/dL (12.0-16.0); Lymphocytes 25 % (21-51); MDiff Complete? YES; Mean Corpuscular HGB CONC 31.8 g/dL (32.0-36.0); Mean Corpuscular Hemoglobin 31.4 pg (27.0-31.0); Mean Corpuscular Volume 98.9 fL (78.0-98.0); Mean Platelet Volume 8.9 fL (7.4-10.4); Monocytes 3 % (0-10); Neutrophil 68 % (42-75); Platelet Count 170 thou/uL (130-400); Platelet Morphology Comment Appears Adequate; RBC Distribution Width 15.4 % (11.5-14.5); Reactive Lymphocytes 1 % (0-10); Red Blood Cell (RBC) Count 3.37 mill/uL (4.20-5.40); White Blood Cell (WBC) Count 8.1 thou/uL (4.8-10.8)
[2020-02-19 04:26] LABS: Anion Gap 10 mmol/L (10-20); BUN (Urea Nitrogen) 21 mg/dL (9.8-20.1); Calc. Creatinine Clearance 155 mL/min (70-130); Calcium 8.6 mg/dL (7.8-10.44); Carbon Dioxide 30 mmol/L (23-31); Chloride 102 mmol/L (98-107); Estimated GFR-MDRD Greater than 90; Glucose 99 mg/dL (83-110); Potassium 3.7 mmol/L (3.5-5.1); Sodium 138 mmol/L (136-145)
[2020-02-19] MEDS: metroNIDAZOLE 500 MG in Premix Bag 1 BAG IVPB SCH ×3 (05:59→20:58)
[2020-02-19] MEDS: Cefepime 1 GM in Sodium Chloride 0.9% 100 ML IVPB SCH ×2 (08:09→20:55)
[2020-02-19] MEDS: Enoxaparin Sodium 80 MG/0.8 ML SYRINGE SC SCH (08:10)
[2020-02-19] MEDS: Famotidine 20 MG TAB PER TUBE SCH ×2 (08:11→20:56)
[2020-02-19] MEDS: Senokot 8.6 MG TAB PO SCH ×2 (08:11→20:56)
[2020-02-19] MEDS: methylPREDNISolone Sod Succ 40 MG VIAL IVP SCH (08:14)
--- NOTE | 2020-02-19 09:01 | RAD ---
CHEST 1 VIEW: INDICATION: History of pneumonia. COMPARISON: Prior exam dated 02/18/2020. FINDINGS: Parenchymal opacities of the right lung and left lung, predominantly the left lower lobe, have improv ed. Mild cardiomegaly persists. ET tube and gastric catheter are unchanged. Small bilateral pleura l effusions persist. No pneumothorax is evident. IMPRESSION: Improving pneumonia POS: SJDI
[2020-02-19] MEDS: Acetaminophen 325 MG TAB PO PRN (11:16)
[2020-02-19 11:41] LABS: SARS-CoV-2 MS2 Positive; SARS-CoV-2 N Gene Positive; SARS-CoV-2 S Gene Positive; SARS-CoV-2 orf1ab Positive
[2020-02-19] MEDS: Potassium Chloride 40 MEQ in Sodium Chloride 0.9% 250 ML 250 ML IVPB PRN (14:24)
--- NOTE | 2020-02-19 14:38 | PDOC.EVN ---
Event Note - Event Note Event Note: Patient is still ventilated, agitated off sedation. Has good urine output Gen: patient opens eyes spontaneously, intubated Lungs: UnchangeD CV: RRR Abd: not distended Ext: no edema Micro: Acute hypoxic resp failure from COVID pneumonia - repeat COVID testing positive. - on cefepime and flagyl currently. Vanc discontinued - also on IV steroids - consider remdesivir? - plan for two COVID to be negative, then proceed with trach and peg Leukocytosis - resolved Anemia - stable, will monitor
--- NOTE | 2020-02-19 17:43 | PRG ---
DATE OF SERVICE: 02/19/2020 Mckenzie Harrington has been hemodynamically stable. She is on her sixth day of cefepime. I would probably discontinue this tomorrow. Chest x-ray has almost completely returned to normal. The only issue is her encephalopathy. Steroids have been decreased, which hopefully will help with that. Haldol and Ativan have been adjusted. She will stay on a low dose of fentanyl for now. Her COVID screen is still positive. I am hoping that by next week, it will be negative so we can proceed with a tracheostomy. Overall, she is otherwise stable. Job ID: [id number]
[2020-02-19 19:50] LABS: SARS-CoV-2 IgG Ab Reactive (NonReactive); SARS-CoV-2 IgG Index 7.08 S/CO (< 1.40)
[2020-02-20] MEDS: Lorazepam 2 MG/ML VIAL SLOW IVP SCH ×6 (00:37→20:55)
[2020-02-20] MEDS: Haloperidol Lactate 5 MG/ML VIAL IM SCH ×6 (00:38→20:55)
[2020-02-20] MEDS: Diabetic Tussin 200 MG/10 ML UDCUP PER TUBE SCH ×4 (00:38→16:59)
[2020-02-20 04:52] LABS: Anion Gap 10 mmol/L (10-20); BUN (Urea Nitrogen) 20 mg/dL (9.8-20.1); Calc. Creatinine Clearance 160 mL/min (70-130); Calcium 8.8 mg/dL (7.8-10.44); Carbon Dioxide 29 mmol/L (23-31); Chloride 100 mmol/L (98-107); Estimated GFR-MDRD Greater than 90; Glucose 98 mg/dL (83-110); Sodium 135 mmol/L (136-145)
[2020-02-20] MEDS: fentaNYL Citrate/PF 2,000 MCG in Sodium Chloride 0.9% 60 ML IV SCH (04:59)
[2020-02-20] MEDS: metroNIDAZOLE 500 MG in Premix Bag 1 BAG IVPB SCH ×3 (05:00→20:55)
[2020-02-20 05:01] LABS: Band 1 % (5-11); Eosinophils 6 % (0-10); Hemoglobin 11.3 g/dL (12.0-16.0); Hypochromia SLIGHT = 6-15 cells (100X) (0-5/hpf); Lymphocytes 8 % (21-51); MDiff Complete? YES; Mean Corpuscular HGB CONC 32.8 g/dL (32.0-36.0); Mean Corpuscular Hemoglobin 32.3 pg (27.0-31.0); Mean Corpuscular Volume 98.4 fL (78.0-98.0); Mean Platelet Volume 8.8 fL (7.4-10.4); Monocytes 2 % (0-10); Neutrophil 83 % (42-75); Platelet Count 171 thou/uL (130-400); Platelet Morphology Comment Appears Adequate; RBC Distribution Width 15.6 % (11.5-14.5); Red Blood Cell (RBC) Count 3.52 mill/uL (4.20-5.40); White Blood Cell (WBC) Count 9.6 thou/uL (4.8-10.8)
--- NOTE | 2020-02-20 07:23 | PDOC.EVN ---
Event Note - Event Note Event Note: Chart reviewed - spoke with RN, room not entered. No overnight events noted. Pt remains on vent, no reported change in resp status. Awaiting COVID neg status for trach/PEG and then transfer to LTAC. Tele reviewed - sinus 60's, no alarms Will continue to follow peripherally while in ICU and be available for any needs. Dx: COVID pneumonia with acute respiratory failure and inability to wean from the vent.
[2020-02-20] MEDS: Cefepime 1 GM in Sodium Chloride 0.9% 100 ML IVPB SCH ×2 (07:27→20:54)
[2020-02-20] MEDS: Senokot 8.6 MG TAB PO SCH ×2 (07:28→20:56)
[2020-02-20] MEDS: Famotidine 20 MG TAB PER TUBE SCH ×2 (07:28→20:55)
[2020-02-20] MEDS: Enoxaparin Sodium 80 MG/0.8 ML SYRINGE SC SCH (07:29)
[2020-02-20] MEDS: methylPREDNISolone Sod Succ 40 MG VIAL IVP SCH (07:29)
--- NOTE | 2020-02-20 08:00 | RAD ---
RADIOGRAPH CHEST 1 VIEW: DATE: 02/20/2020 TIME: 5:29 AM HISTORY: 74-year-old female with pneumonia COMPARISON: 02/19/2020 FINDINGS: No interval change in diffuse bilateral mild interstitial-alveolar pulmonary densities, and left basi lar consolidation. Endotracheal tube and esophagogastric tube remain. No pneumothorax. No interval change. IMPRESSION: No interval change
--- NOTE | 2020-02-20 12:38 | PRG ---
DATE OF SERVICE: 02/20/2020 SUBJECTIVE: Mckenzie Harrington is still not reliably following commands. We will continue with sedation. OBJECTIVE: VITAL SIGNS: Heart rates in the 60s, pressures in the 90s, respiratory rates in the teens. We turned her rate down to 4 today and her pressure support during the day down to 5. Otherwise, her overall exam is unchanged. IMPRESSION AND PLAN: 1. COVID-19 pneumonia, almost completely clinically resolved. 2. 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 We will recheck JULITA probably Saturday morning. She needs trach and PEG, and then she can go to a long-term acute care. Job ID: [id number]
[2020-02-21] MEDS: Haloperidol Lactate 5 MG/ML VIAL IM SCH ×6 (00:53→20:50)
[2020-02-21] MEDS: Diabetic Tussin 200 MG/10 ML UDCUP PER TUBE SCH ×4 (00:53→17:28)
[2020-02-21] MEDS: Lorazepam 2 MG/ML VIAL SLOW IVP SCH ×6 (00:53→20:50)
[2020-02-21 04:38] LABS: Anion Gap 11 mmol/L (10-20); BUN (Urea Nitrogen) 25 mg/dL (9.8-20.1); Calc. Creatinine Clearance 145 mL/min (70-130); Calcium 8.3 mg/dL (7.8-10.44); Carbon Dioxide 29 mmol/L (23-31); Chloride 100 mmol/L (98-107); Estimated GFR-MDRD Greater than 90; Glucose 102 mg/dL (83-110); Potassium 3.8 mmol/L (3.5-5.1); Sodium 136 mmol/L (136-145)
[2020-02-21 04:54] LABS: Band 4 % (5-11); Eosinophils 3 % (0-10); Hemoglobin 10.8 g/dL (12.0-16.0); Lymphocytes 24 % (21-51); MDiff Complete? YES; Mean Corpuscular HGB CONC 32.8 g/dL (32.0-36.0); Mean Corpuscular Hemoglobin 32.1 pg (27.0-31.0); Mean Corpuscular Volume 97.8 fL (78.0-98.0); Monocytes 8 % (0-10); Neutrophil 61 % (42-75); Platelet Count 147 thou/uL (130-400); Platelet Morphology Comment Appears Adequate; RBC Distribution Width 15.5 % (11.5-14.5); Red Blood Cell (RBC) Count 3.38 mill/uL (4.20-5.40)
[2020-02-21] MEDS: metroNIDAZOLE 500 MG in Premix Bag 1 BAG IVPB SCH ×2 (05:38→13:51)
--- NOTE | 2020-02-21 07:53 | PDOC.EVN ---
Event Note - Event Note Event Note: Continuing to follow patient distantly - No changes noted by chart review, pt remains intubated. Awaiting COVID neg status for trach/PEG and then transfer to LTAC. Will continue to follow peripherally while in ICU and be available for any needs. Dx: COVID pneumonia with acute respiratory failure and inability to wean from the vent.
--- NOTE | 2020-02-21 09:04 | RAD ---
CHEST 1 VIEW: Date: 02/21/2020 HISTORY: Pneumonia. COMPARISON: Radiograph prior day. FINDINGS: Mild worsening right upper lobe air space aeration. Remainder of lungs are similar. No pneumothorax. Endotracheal tube tip is just below the level of the clavicles in similar position. Enteric tube tip to gastric antrum. No acute osseous abnormality. IMPRESSION: Mild worsening right upper lung aeration. POS: HOME
[2020-02-21] MEDS: Cefepime 1 GM in Sodium Chloride 0.9% 100 ML IVPB SCH (09:21)
[2020-02-21] MEDS: Enoxaparin Sodium 80 MG/0.8 ML SYRINGE SC SCH (09:21)
[2020-02-21] MEDS: methylPREDNISolone Sod Succ 40 MG VIAL IVP SCH (09:22)
[2020-02-21] MEDS: Senokot 8.6 MG TAB PO SCH ×2 (09:22→20:50)
[2020-02-21] MEDS: Famotidine 20 MG TAB PER TUBE SCH ×2 (09:22→20:49)
[2020-02-21] MEDS: Potassium Chloride 40 MEQ in Sodium Chloride 0.9% 250 ML 250 ML IVPB PRN (09:40)
--- NOTE | 2020-02-21 20:56 | PRG ---
DATE OF SERVICE: 02/21/2020 Mckenzie Harrington is tolerating slow decreases in her fentanyl. She is tolerating decreased ventilatory support during the day. Her cefepime will be discontinued today. This is empirically started on the . She will have another COVID screen tomorrow. Even if this is positive, I will ask Surgery to consider a tracheostomy. Her Lovenox will need to be held in the morning. amenable to a procedure in the unit sometime during the day or in the afternoon. She was started on Flagyl in the . It is not clear to me why this was started by the Hospitalist, so this can be discontinued as well. We will need to watch her diligently for signs of any new nosocomial infections, but she appears to be stable and doing well. Once she has a tracheostomy in place, we can continue weaning sedation and weaning mechanical ventilation. Job ID: [id number]
[2020-02-22] MEDS: Lorazepam 2 MG/ML VIAL SLOW IVP SCH ×6 (00:05→21:02)
[2020-02-22] MEDS: Haloperidol Lactate 5 MG/ML VIAL IM SCH ×6 (00:05→21:02)
[2020-02-22] MEDS: Diabetic Tussin 200 MG/10 ML UDCUP PER TUBE SCH ×4 (00:05→18:00)
[2020-02-22 04:43] LABS: Band 2 % (5-11); Eosinophils 1 % (0-10); Hemoglobin 11.2 g/dL (12.0-16.0); Hypochromia SLIGHT = 6-15 cells (100X) (0-5/hpf); Lymphocytes 20 % (21-51); MDiff Complete? YES; Mean Corpuscular HGB CONC 32.4 g/dL (32.0-36.0); Mean Corpuscular Volume 98.8 fL (78.0-98.0); Mean Platelet Volume 8.9 fL (7.4-10.4); Monocytes 7 % (0-10); Neutrophil 70 % (42-75); Platelet Count 143 thou/uL (130-400); Platelet Morphology Comment Appears Adequate; RBC Distribution Width 15.6 % (11.5-14.5); Red Blood Cell (RBC) Count 3.49 mill/uL (4.20-5.40); White Blood Cell (WBC) Count 8.4 thou/uL (4.8-10.8)
[2020-02-22 04:46] LABS: Anion Gap 11 mmol/L (10-20); BUN (Urea Nitrogen) 20 mg/dL (9.8-20.1); Calc. Creatinine Clearance 147 mL/min (70-130); Calcium 8.3 mg/dL (7.8-10.44); Carbon Dioxide 27 mmol/L (23-31); Chloride 102 mmol/L (98-107); Estimated GFR-MDRD Greater than 90; Glucose 95 mg/dL (83-110); Potassium 3.6 mmol/L (3.5-5.1); Sodium 136 mmol/L (136-145)
--- NOTE | 2020-02-22 07:25 | PDOC.EVN ---
Event Note - Event Note Event Note: Continuing to follow peripherally - no overnight events. COVID test obtained early this morning. Plan for trach/peg when COVID negative, and then transfer to LTAC. Dx. COVID pneumonia with inability to wean from the vent.
--- NOTE | 2020-02-22 07:37 | RAD ---
Chest one view HISTORY: Dyspnea. COVID 19. COMPARISON: 02/21/2020. FINDINGS: Cardiac silhouette is within normal limits. Pulmonary vasculature are unremarkable. Mediastinum is midline. Lines and tubes are unchanged in position. Patchy airspace disease involving the left lower lobe and right upper lobe are slightly less dense. No lobar consolidation. No evidence of pneumothorax. teletypesetter monitor leads overlie the chest. IMPRESSION : Slight improvement of bilateral infiltrates. No new abnormalities are demonstrated.
[2020-02-22] MEDS: Famotidine 20 MG TAB PER TUBE SCH ×2 (08:28→21:02)
[2020-02-22] MEDS: Senokot 8.6 MG TAB PO SCH ×2 (08:28→21:03)
[2020-02-22] MEDS: methylPREDNISolone Sod Succ 40 MG VIAL IVP SCH (08:29)
[2020-02-22 10:23] LABS: SARS-CoV-2 MS2 Positive; SARS-CoV-2 N Gene Positive; SARS-CoV-2 S Gene Positive; SARS-CoV-2 orf1ab Positive
--- NOTE | 2020-02-22 11:23 | PRG ---
DATE OF SERVICE: 02/22/2020 SUBJECTIVE: Mckenzie Harrington during the day with the night before and appears comfortable. OBJECTIVE: VITAL SIGNS: Respiratory rates in the teens, minute volume is about 8 L a minute, FiO2 is at 40%, blood pressure is 112/57 this morning, heart rate is in the 60s. LUNGS: Otherwise unchanged. HEART: Otherwise unchanged. ABDOMEN: Otherwise unchanged. LABORATORY DATA: Her COVID screen unfortunately still positive. White count 8.4, hemoglobin 11.2, and platelets 143. Electrolytes are normal, creatinine is 0.46. IMPRESSION AND PLAN: Respiratory failure associated with COVID-19 pneumonia. She is clinically actually doing quite well. I believe with a tracheostomy, we could probably proceed to weaning during the day and resting on ventilator at night. I have planned to talk to the surgeons. In theory, she should not have any viable transmittable virus at this point. She is admitted on January 26 and we are at February 21, so she is a month into this, actually having had this illness for several days prior to her admission at this hospital. Job ID: [id number]
[2020-02-23] MEDS: Haloperidol Lactate 5 MG/ML VIAL IM SCH ×3 (00:36→08:46)
[2020-02-23] MEDS: Lorazepam 2 MG/ML VIAL SLOW IVP SCH ×3 (00:36→08:47)
[2020-02-23] MEDS: Diabetic Tussin 200 MG/10 ML UDCUP PER TUBE SCH ×5 (00:36→23:50)
[2020-02-23 04:14] LABS: Anion Gap 13 mmol/L (10-20); BUN (Urea Nitrogen) 23 mg/dL (9.8-20.1); Calc. Creatinine Clearance 144 mL/min (70-130); Calcium 8.4 mg/dL (7.8-10.44); Carbon Dioxide 25 mmol/L (23-31); Chloride 101 mmol/L (98-107); Estimated GFR-MDRD Greater than 90; Glucose 103 mg/dL (83-110); Potassium 3.7 mmol/L (3.5-5.1); Sodium 135 mmol/L (136-145)
[2020-02-23 04:15] LABS: Band 1 % (5-11); Eosinophils 2 % (0-10); Hemoglobin 11.5 g/dL (12.0-16.0); Lymphocytes 13 % (21-51); MDiff Complete? YES; Mean Corpuscular HGB CONC 31.4 g/dL (32.0-36.0); Mean Corpuscular Hemoglobin 31.4 pg (27.0-31.0); Mean Corpuscular Volume 99.9 fL (78.0-98.0); Mean Platelet Volume 8.6 fL (7.4-10.4); Monocytes 4 % (0-10); Neutrophil 80 % (42-75); Platelet Count 137 thou/uL (130-400); Platelet Morphology Comment Appears Adequate; RBC Distribution Width 15.4 % (11.5-14.5); Red Blood Cell (RBC) Count 3.65 mill/uL (4.20-5.40)
--- NOTE | 2020-02-23 07:49 | RAD ---
Chest one view HISTORY: Dyspnea. Pneumonia. Follow-up. COMPARISON: 02/22/2020. FINDINGS: Cardiac silhouette unremarkable. Pulmonary vasculature upper limits of normal. Mild residual parenchymal opacity scattered throughout each lung, most pronounced at the right upper lobe and left lower lobe. Unchanged from most recent exam. Mediastinum is midline. Lines and tubes unchanged in position. No evidence of pneumothorax. IMPRESSION : Patchy bilateral infiltrates and other findings are stable.
[2020-02-23] MEDS: methylPREDNISolone Sod Succ 40 MG VIAL IVP SCH (08:45)
[2020-02-23] MEDS: Senokot 8.6 MG TAB PO SCH ×2 (08:46→20:33)
[2020-02-23] MEDS: Famotidine 20 MG TAB PER TUBE SCH ×2 (08:47→20:33)
[2020-02-23] MEDS ORDERED: Enoxaparin Sodium 40 MG/0.4 ML SYRINGE SC SCH (14:30)
--- NOTE | 2020-02-23 17:06 | PRG ---
DATE OF SERVICE: 02/23/2020 Mckenzie Harrington is tentatively on the schedule tomorrow for trach and PEG. She has been switched from Haldol and Ativan to Seroquel twice a day. Hopefully, this leads to improvement of her encephalopathy. I suspect once we have a tracheostomy tube, then we can more aggressively wean her during the day. There are no new acute care issues. Her vital signs remained stable. She has not been febrile since February 02. Job ID: [id number]
--- NOTE | 2020-02-23 21:02 | PDOC.HOSPP ---
- Subjective Encounter Date: 02/23/20 Subjective: Intubated, sedated. - Objective Vital Signs & Weight: Vital Signs (12 hours) Temp Pulse Resp BP 02/23/20 18:51 64 02/23/20 18:00 14 02/23/20 16:00 98.7 F 14 02/23/20 14:19 73 02/23/20 14:00 17 02/23/20 12:00 98.1 F 17 02/23/20 10:45 74 98/62 02/23/20 10:00 17 Weight Admit Weight 188 lb Weight 188 lb 0.869 oz Most Recent Monitor Data Heart Rate from ECG 67 NIBP 135/69 NIBP BP-Mean 91 Respiration from ECG 17 SpO2 100 I&O: 02/22/20 02/23/20 02/24/20 06:59 06:59 06:59 Intake Total 2190.9 2116 968 Output Total 3700 3015 805 Balance -1509.1 -899 163 Result Diagrams: 02/23/20 03:41 02/23/20 03:41 Hospitalist ROS - Medication Medications: Active Medications Generic Name Dose Route Start Last Admin Trade Name Freq PRN Reason Stop Dose Admin Acetaminophen 650 mg 01/27/20 23:28 02/19/20 11:16 Tylenol PO 650 mg Q4H PRN Administration Headache/Fever/Mild Pain (1-3) Famotidine 20 mg 02/15/20 09:00 02/23/20 20:33 Pepcid PER TUBE 20 mg Q12HR BOO Administration Guaifenesin 200 mg 02/07/20 18:00 02/23/20 17:16 Robitussin Sf PER TUBE 200 mg Q6HR BOO Administration Magnesium Sulfate 2 gm/ Device 50 mls @ 50 mls/hr 01/30/20 12:38 01/31/20 05: 55 IVPB 50 mls DAILYPRN PRN Administration MAG LEVEL < 2.0 Potassium Chloride 40 meq/ 270 mls @ 67.5 mls/hr 01/30/20 13:00 02/21/20 09: 40 Sodium Chloride IVPB 270 mls DAILYPRN PRN Administration K < 4.0 Sodium Chloride 1,000 mls @ 0 mls/hr 02/03/20 15:15 02/03/20 15:29 Normal Saline 0.9% IV 1,000 mls .Q0M BOO Administration KVO Methylprednisolone Sodium Succinate 20 mg 02/18/20 09:00 02/23/20 08:45 Solu-Medrol IVP 20 mg DAILY BOO Administration Quetiapine Fumarate 100 mg 02/23/20 21:00 02/23/20 20:33 Seroquel PER TUBE 100 mg BID BOO Administration Senna 1 tab 02/04/20 09:00 02/23/20 20:33 Senokot PO 1 tab BID BOO Administration Sodium Chloride 10 ml 02/07/20 09:00 02/23/20 20:34 Flush - Normal Saline IVF 10 ml Q12HR BOO Administration Sterile Water 2 ml 01/30/20 18:58 02/11/20 08:04 Bacteriostatic Water FS 2 ml PRN PRN Administration RECONSTITUTION - Exam General Appearance: NAD, awake alert Heart: RRR, no murmur, no gallops, no rubs, normal peripheral pulses Respiratory: CTAB, no wheezes, no rales, no ronchi, normal chest expansion, no tachypnea, normal percussion Gastrointestinal: soft, non-tender, non-distended, normal bowel sounds, no palpable masses, no hepatomegaly, no splenomegaly, no bruit Extremities: no cyanosis Musculoskeletal: generalized weakness Hosp A/P (1) COVID-19 Code(s): U07.1 - COVID-19 Status: Acute (2) Acute respiratory failure with hypoxia Code(s): J96.01 - ACUTE RESPIRATORY FAILURE WITH HYPOXIA Status: Acute (3) Hyperlipidemia Code(s): E78.5 - HYPERLIPIDEMIA, UNSPECIFIED Status: Acute - Plan Still intubated and sedated. Has not been able to wean. Plan is for trach and PEG.
--- NOTE | 2020-02-24 00:01 | CON ---
DATE OF CONSULTATION: HISTORY OF PRESENT ILLNESS: Ms. Harrington is a 74-year-old female, who was hospitalized 3 days at [facility] after being ill for several days and then transferred to this facility for COVID illness. She was transferred 01/28/2020 to the hospitalist service and seen by Dr. Hernandez. She has been on the ventilator for 5 weeks. She has been actually afebrile for 4 weeks. She has severe ICU deconditioning and cannot be weaned from the ventilator. I have been asked to see her regarding tracheostomy and PEG tube. Plan is to perform this so she can go to an LTAC. The patient's last COVID test was positive yesterday. However, it is felt that she is not actively shedding virus and it would be safe to proceed with tracheostomy and PEG tube to facilitate her weaning from the ventilator to facilitate her reconditioning and transfer to LTAC care. PAST MEDICAL HISTORY: Hearing loss, hyperlipidemia, hypertension. PAST SURGICAL HISTORY: Open cholecystectomy, right subcostal scar. FAMILY HISTORY: Positive for colon cancer in her father. SOCIAL HISTORY: Tobacco, alcohol use, illicit drug use, none. The patient is , lives with her . The patient's one of her relatives from COVID, but her son and have survived COVID, treated as an outpatient and home quarantine and now visit her periodically. ALLERGIES: AMOXICILLIN, CODEINE, POTASSIUM. PREHOSPITALIZATION MEDICATIONS: 1. Aspirin. 2. Sulfa. 3. Triamterene/Maxzide 25. REVIEW OF SYSTEMS: Not possible personally. FAMILY HISTORY: Not possible personally as she is on the ventilator. PHYSICAL EXAMINATION: VITAL SIGNS: Height 5 feet 5 inches, weight 180 pounds, 31 BMI. Blood pressure 132/73, pulse 77. HEAD, EARS, EYES, NOSE AND THROAT: Unremarkable. LUNGS: Clear to auscultation. CARDIAC: Regular rate and rhythm without murmur or gallop. ABDOMEN: Soft. Open scar, right subcostal. Slightly obese, nontender. No hernias. EXTREMITIES: Unremarkable. LABORATORY DATA: Chest x-ray, endotracheal and nasogastric tubes in good position, some pulmonary congestion, overall markedly improved. Chest x-ray, few infiltrates in left diaphragm and sulcus, marked improvement from admission. White count 11 and hemoglobin 11.5. Basic metabolic profile normal. ASSESSMENT AND PLAN: COVID pneumonia, recovered. Viral shed should be minimal. I have discussed with Dr. Pablo Hogan, Dr. Slade on the surgical committee and discussed with Dr. Monique, Infectious Disease as it would be safe from all aspects to proceed with tracheostomy, continued positive COVID is due to inactive virus which can be positive for some time. Family understands the risks and benefits, and consents. Job ID: [id number]
[2020-02-24 04:19] LABS: Anion Gap 13 mmol/L (10-20); BUN (Urea Nitrogen) 20 mg/dL (9.8-20.1); Calc. Creatinine Clearance 157 mL/min (70-130); Calcium 8.9 mg/dL (7.8-10.44); Carbon Dioxide 25 mmol/L (23-31); Chloride 104 mmol/L (98-107); Estimated GFR-MDRD Greater than 90; Glucose 95 mg/dL (83-110); Potassium 3.4 mmol/L (3.5-5.1); Sodium 139 mmol/L (136-145)
[2020-02-24 04:20] LABS: Band 2 % (5-11); Hemoglobin 11.9 g/dL (12.0-16.0); Lymphocytes 15 % (21-51); MDiff Complete? YES; Mean Corpuscular HGB CONC 32.5 g/dL (32.0-36.0); Mean Corpuscular Hemoglobin 32.2 pg (27.0-31.0); Mean Corpuscular Volume 99.2 fL (78.0-98.0); Monocytes 2 % (0-10); Neutrophil 81 % (42-75); Platelet Count 136 thou/uL (130-400); Platelet Morphology Comment Appears Adequate; RBC Distribution Width 15.6 % (11.5-14.5); RBC Morphology Normal; Red Blood Cell (RBC) Count 3.68 mill/uL (4.20-5.40); White Blood Cell (WBC) Count 11.4 thou/uL (4.8-10.8)
[2020-02-24] MEDS: Diabetic Tussin 200 MG/10 ML UDCUP PER TUBE SCH ×3 (05:21→16:59)
[2020-02-24] MEDS: Lorazepam 2 MG/ML VIAL SLOW IVP PRN ×3 (05:22→23:15)
--- NOTE | 2020-02-24 08:07 | RAD ---
Exam: Chest one view HISTORY:Unknown pneumonia Comparison: 02/23/2020 FINDINGS: Lines and tubes: Redemonstration of endotracheal and nasogastric tube. Cardiac silhouette: Normal Aorta: Atherosclerosis Pulmonary vessels: Normal Costophrenic angles: Clear LUNGS: Stable multiple lung parenchymal opacities. Pneumothorax: None Osseous abnormalities: None IMPRESSION: No significant interval change.
[2020-02-24] MEDS: Potassium Chloride 40 MEQ in Sodium Chloride 0.9% 250 ML 250 ML IVPB PRN (08:15)
[2020-02-24] MEDS: methylPREDNISolone Sod Succ 40 MG VIAL IVP SCH (08:15)
[2020-02-24] MEDS: Famotidine 20 MG TAB PER TUBE SCH ×2 (08:16→19:40)
[2020-02-24] MEDS: Senokot 8.6 MG TAB PO SCH ×2 (08:16→19:40)
[2020-02-24] MEDS ORDERED: CEFAZOLIN 1 GM VIAL ONE (09:18)
[2020-02-24] MEDS ORDERED: PROPOFOL 200 MG/20 ML VIAL ONE (09:18)
--- NOTE | 2020-02-24 09:50 | PRG ---
DATE OF SERVICE: 02/24/2020 SUBJECTIVE: Mckenzie Harrington on the schedule for a trach and a PEG this afternoon. According to the nurses, she started to weakly follow commands. OBJECTIVE: LUNGS: Unchanged. HEART: Unchanged. ABDOMEN: Unchanged. LABORATORY DATA: White count 11.4, hemoglobin 11.9, platelets 136,000. She has 2% bands on her peripheral smear. Electrolytes are unremarkable. Creatinine is 0.4. IMPRESSION: 1. Respiratory failure associated with coronavirus disease-19 pneumonia. 2. 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 I am hoping for trach collar trials tomorrow. Chest x-ray has almost normalized, and I suspect her lung compliance will be acceptable for T-tube trials tomorrow once the tracheostomy is in. Job ID: [id number]
[2020-02-24] MEDS: Haloperidol Lactate 5 MG/ML VIAL IM PRN ×3 (10:48→23:15)
[2020-02-24] MEDS ORDERED: Bupivacaine PF 0.5% 30 ML VIAL ONE ×2 (13:02→15:47)
[2020-02-24] MEDS ORDERED: Lidocaine 1% w/Epinephrine 1:100K 20 ML VIAL ONE ×2 (13:02→15:47)
[2020-02-24] MEDS ORDERED: Midazolam HCl 2 mg/2 ml Vial ONE ×2 (13:33→16:58)
[2020-02-24] MEDS ORDERED: Rocuronium Bromide 50 MG/5 ML VIAL ONE (13:33)
[2020-02-24] MEDS ORDERED: Propofol 1,000 MG/100 ML VIAL IV ONE (14:32)
[2020-02-24] MEDS ORDERED: Lorazepam 2 MG/ML VIAL SLOW IVP SCH ×2 (15:00)
--- NOTE | 2020-02-24 16:36 | PDOC.EVN ---
Event Note - Event Note Event Note: Patient seen by Pulm today. Stable. Plan is for Trach and PEG today, but the Covid + complicating the process for right now.
[2020-02-24] MEDS ORDERED: Ketamine 50 MG/ML (10ML VIAL) ONE (16:58)
--- NOTE | 2020-02-25 00:59 | OP ---
DATE OF PROCEDURE: 02/24/2020 PREOPERATIVE DIAGNOSES: COVID positive six weeks in the hospital, respiratory failure, malnutrition, and deconditioning. POSTOPERATIVE DIAGNOSES: COVID positive six weeks in the hospital, respiratory failure, malnutrition, and deconditioning. PROCEDURES PERFORMED: #8 Shiley tracheostomy tube and percutaneous endoscopic gastrostomy tube. ANESTHESIA: General, local 0.5% Marcaine 30 mL mixed with 1% Xylocaine 20 mL. DESCRIPTION OF PROCEDURE: The patient was taken to the operating room, where under general anesthesia, neck and chest were prepared with ChloraPrep and draped in routine fashion. Incision was made in the anterior neck above the manubrium, carried down to skin, subcutaneous tissue, platysma. Strap muscles divided in the midline. Trachea identified below the cricoid, trachea window excised. Hemostasis had been obtained with the cautery under direct visualization. Endotracheal tube removed and tracheostomy tube inserted. Balloon inflated, connected to the ventilator and wound approximated by approximating skin on either side of the tracheostomy with 3-0 Prolene and tracheostomy was applied and secured to the skin with 3-0 Prolene suture. Tracheostomy strap applied. Sterile dressings applied. Strap sutures of 3-0 Prolene had been placed. Endoscope was placed per os under direct visualization using air insufflation passed throughout the esophagus and the stomach insufflated, and a good indentation noted in the left subxiphoid. The area was prepared with ChloraPrep and local anesthetic was infiltrated in the skin and subcutaneous tissue. Stab incision was made. Trocar catheter introduced, placed percutaneously into the gastric lumen, wire threaded, grasped with snare, reduced through the endoscope, pulled out the mouth, removing the endoscope. Esophagus and stomach were normal otherwise. Wire connected to the feeding device, which was connected, lubricated, pulled back down the esophagus, secured to the abdominal wall with a fixation device and feeding tube tailored to length and assembled. The patient tolerated the procedure well. Job ID: [id number]
[2020-02-25] MEDS: Diabetic Tussin 200 MG/10 ML UDCUP PER TUBE SCH ×5 (01:38→23:16)
[2020-02-25 04:04] LABS: Anion Gap 16 mmol/L (10-20); BUN (Urea Nitrogen) 17 mg/dL (9.8-20.1); Calc. Creatinine Clearance 138 mL/min (70-130); Calcium 9.2 mg/dL (7.8-10.44); Carbon Dioxide 23 mmol/L (23-31); Chloride 104 mmol/L (98-107); Estimated GFR-MDRD Greater than 90; Glucose 86 mg/dL (83-110); Potassium 3.6 mmol/L (3.5-5.1); Sodium 139 mmol/L (136-145)
[2020-02-25 04:13] LABS: Band 9 % (5-11); Eosinophils 1 % (0-10); Hemoglobin 11.8 g/dL (12.0-16.0); Lymphocytes 11 % (21-51); MDiff Complete? YES; Mean Corpuscular HGB CONC 31.8 g/dL (32.0-36.0); Mean Corpuscular Hemoglobin 31.4 pg (27.0-31.0); Mean Corpuscular Volume 98.7 fL (78.0-98.0); Monocytes 10 % (0-10); Neutrophil 68 % (42-75); Platelet Count 141 thou/uL (130-400); Platelet Morphology Comment Appears Adequate; RBC Distribution Width 15.4 % (11.5-14.5); Red Blood Cell (RBC) Count 3.75 mill/uL (4.20-5.40); White Blood Cell (WBC) Count 11.4 thou/uL (4.8-10.8)
--- NOTE | 2020-02-25 07:55 | RAD ---
EXAM: CHEST ONE VIEW HISTORY: Pneumonia COMPARISON: 02/24/2020 FINDINGS: Tracheostomy device is now noted in place with interval removal of the endotracheal tube and nasogast basia tubes. Cardiac silhouette is within normal limits. Pulmonary vasculature is at the upper limits of normal. The bilateral interstitial opacities have mildly improved; although, mild increased inters titial and patchy parenchymal densities persist in the right upper lung zone and at the lateral left lung base. Findings may be related to improving pneumonia. No other interval change. IMPRESSION: 1. Interval removal of the endotracheal tube and nasogastric tubes with placement of tracheostomy dev ice. 2. Scattered increased interstitial opacities predominantly in the right upper lung zone and left mariia g base, but the interstitial opacities have improved compared to prior exam. This may relate to improving pneumonia. Continued follow-up to resolution is recommended.
[2020-02-25] MEDS: methylPREDNISolone Sod Succ 40 MG VIAL IVP SCH (08:54)
[2020-02-25] MEDS: Famotidine 20 MG TAB PER TUBE SCH ×2 (08:54→19:07)
[2020-02-25] MEDS: Senokot 8.6 MG TAB PO SCH ×2 (08:55→19:07)
--- NOTE | 2020-02-25 10:21 | PDOC.HOSPP ---
- Subjective Encounter Date: 02/25/20 Encounter Time: 10:00 non-verbal Subjective: Patient seen and examined. No overnight events - Objective Vital Signs & Weight: Vital Signs (12 hours) Temp Pulse Resp BP 02/25/20 07:28 88 128/75 02/25/20 06:00 14 02/25/20 04:00 98.6 F 02/25/20 02:50 107 H 02/25/20 02:00 24 H 02/25/20 00:22 108 H 02/25/20 00:00 99.3 F 24 H Weight Admit Weight 188 lb Weight 173 lb 1.006 oz Most Recent Monitor Data Heart Rate from ECG 79 NIBP 93/61 NIBP BP-Mean 71 Respiration from ECG 25 SpO2 100 I&O: 02/24/20 02/25/20 02/26/20 06:59 06:59 06:59 Intake Total 1721 1561 Output Total 1930 1080 Balance -209 481 Result Diagrams: 02/25/20 03:31 02/25/20 03:31 Radiology Reviewed by me: Yes EKG Reviewed by me: Yes Hospitalist ROS - Review of Systems ROS unobtainable: due to endotracheal tube - Medication Medications: Active Medications Generic Name Dose Route Start Last Admin Trade Name Freq PRN Reason Stop Dose Admin Acetaminophen 650 mg 01/27/20 23:28 02/19/20 11:16 Tylenol PO 650 mg Q4H PRN Administration Headache/Fever/Mild Pain (1-3) Famotidine 20 mg 02/15/20 09:00 02/25/20 08:54 Pepcid PER TUBE 20 mg Q12HR BOO Administration Guaifenesin 200 mg 02/07/20 18:00 02/25/20 05:45 Robitussin Sf PER TUBE 200 mg Q6HR BOO Administration Haloperidol Lactate 10 mg 02/23/20 11:30 02/24/20 23:15 Haldol IM 10 mg Q4H PRN Administration Agitation Magnesium Sulfate 2 gm/ Device 50 mls @ 50 mls/hr 01/30/20 12:38 01/31/20 05: 55 IVPB 50 mls DAILYPRN PRN Administration MAG LEVEL < 2.0 Potassium Chloride 40 meq/ 270 mls @ 67.5 mls/hr 01/30/20 13:00 02/24/20 08: 15 Sodium Chloride IVPB 270 mls DAILYPRN PRN Administration K < 4.0 Sodium Chloride 1,000 mls @ 0 mls/hr 02/03/20 15:15 02/03/20 15:29 Normal Saline 0.9% IV 1,000 mls .Q0M BOO Administration KVO Lorazepam 1 mg 02/23/20 11:30 02/24/20 23:15 Ativan SLOW IVP 1 mg Q4H PRN Administration Agitation Methylprednisolone Sodium Succinate 20 mg 02/18/20 09:00 02/25/20 08:54 Solu-Medrol IVP 20 mg DAILY BOO Administration Quetiapine Fumarate 100 mg 02/23/20 21:00 02/25/20 08:55 Seroquel PER TUBE 100 mg BID BOO Administration Senna 1 tab 02/04/20 09:00 02/25/20 08:55 Senokot PO 1 tab BID BOO Administration Sodium Chloride 10 ml 02/07/20 09:00 02/25/20 08:55 Flush - Normal Saline IVF 10 ml Q12HR BOO Administration Sterile Water 2 ml 01/30/20 18:58 02/11/20 08:04 Bacteriostatic Water FS 2 ml PRN PRN Administration RECONSTITUTION - Exam General Appearance: NAD Eye: PERRL ENT: normocephalic atraumatic, no oropharyngeal lesions Neck - other findings: tracheostomy+ Heart: RRR, no murmur, no gallops Respiratory - other findings: coarse sound+ Gastrointestinal: soft Gastrointestinal - other findings: peg+ Hosp A/P (1) Acute respiratory failure with hypoxia Code(s): J96.01 - ACUTE RESPIRATORY FAILURE WITH HYPOXIA Status: Acute (2) 2019-nCoV acute respiratory disease Code(s): U07.1 - COVID-19; J06.9 - ACUTE UPPER RESPIRATORY INFECTION, UNSPECIFIED Status: Acute (3) COVID-19 Code(s): U07.1 - COVID-19 Status: Acute (4) Hyperlipidemia Code(s): E78.5 - HYPERLIPIDEMIA, UNSPECIFIED Status: Acute - Plan old records reviewed/req s/p trach and peg supportive care in ICU start tube feeding as tolerated medication reviewed and symptomatic care
[2020-02-25] MEDS ORDERED: Apixaban 5 MG TAB PO SCH (12:45)
[2020-02-25] MEDS: Potassium Chloride 40 MEQ in Sodium Chloride 0.9% 250 ML 250 ML IVPB PRN (16:25)
--- NOTE | 2020-02-25 17:04 | PRG ---
DATE OF SERVICE: 02/25/2020 Ms. Gray is doing well. Her COVID precautions have been discontinued. She is doing well up in a chair, status post tracheostomy and PEG tube yesterday. She is tolerating her PEG tube boluses. At this point, I will see her as needed. Please call if necessary. Job ID: [id number]
--- NOTE | 2020-02-25 17:31 | PRG ---
DATE OF SERVICE: 02/25/2020 SUBJECTIVE: Ms. Harrington did well overnight. She was placed in the neuro chair and her ventilation was turned down to basically 3 cm of pressure. She did well with that throughout the day. She will be nocturnally ventilated each night. OBJECTIVE: VITAL SIGNS: Respiratory rates in the 20s, heart rates in the 90s, blood pressure 135/73. LUNGS: Unchanged. HEART: Unchanged. ABDOMEN: Unchanged. LABORATORY DATA: White count 11.4, hemoglobin 11.8, platelets 141. Electrolytes are normal. IMPRESSION: 1. Status post COVID-19 pneumonia, clinically doing well, now that she had tracheostomy and PEG in place. 2. Critical illness myopathy. 3. We will continue with daytime weaning. 4. The COVID isolation can be discontinued. I discussed the above with Dr. Monique as well, but she is one month out from the onset of her illness, should not be contagious. 5. We will continue to do COVID screens mainly for down the road placement in a long-term acute care or assisted/group home facility. Job ID: [id number]
[2020-02-25] MEDS: Apixaban 5 MG TAB PO SCH (19:07)
[2020-02-25] MEDS: Acetaminophen 325 MG TAB PO PRN (19:58)
[2020-02-26 04:40] LABS: Anion Gap 15 mmol/L (10-20); BUN (Urea Nitrogen) 14 mg/dL (9.8-20.1); Calc. Creatinine Clearance 137 mL/min (70-130); Calcium 9.3 mg/dL (7.8-10.44); Carbon Dioxide 24 mmol/L (23-31); Chloride 103 mmol/L (98-107); Estimated GFR-MDRD Greater than 90; Glucose 98 mg/dL (83-110); Potassium 3.7 mmol/L (3.5-5.1); Sodium 138 mmol/L (136-145)
[2020-02-26 05:40] LABS: Hemoglobin 11.9 g/dL (12.0-16.0); Mean Corpuscular HGB CONC 33.1 g/dL (32.0-36.0); Mean Corpuscular Hemoglobin 32.4 pg (27.0-31.0); Mean Corpuscular Volume 97.8 fL (78.0-98.0); Mean Platelet Volume 9.1 fL (7.4-10.4); Platelet Count 143 thou/uL (130-400); RBC Distribution Width 15.3 % (11.5-14.5); Red Blood Cell (RBC) Count 3.67 mill/uL (4.20-5.40); White Blood Cell (WBC) Count 13.7 thou/uL (4.8-10.8)
[2020-02-26] MEDS: Potassium Chloride 40 MEQ in Sodium Chloride 0.9% 250 ML 250 ML IVPB PRN (05:42)
[2020-02-26] MEDS: Diabetic Tussin 200 MG/10 ML UDCUP PER TUBE SCH ×4 (05:42→23:01)
[2020-02-26 06:19] LABS: Band 8 % (5-11); Eosinophils 1 % (0-10); Lymphocytes 11 % (21-51); MDiff Complete? YES; Monocytes 3 % (0-10); Neutrophil 77 % (42-75)
[2020-02-26] MEDS: methylPREDNISolone Sod Succ 40 MG VIAL IVP SCH (08:27)
[2020-02-26] MEDS: Apixaban 5 MG TAB PO SCH ×2 (08:27→20:06)
[2020-02-26] MEDS: Senokot 8.6 MG TAB PO SCH ×2 (08:28→20:06)
[2020-02-26] MEDS: Famotidine 20 MG TAB PER TUBE SCH ×2 (08:28→20:06)
--- NOTE | 2020-02-26 10:14 | PRG ---
DATE OF SERVICE: 02/26/2020 SUBJECTIVE: Ms. Harrington awakens and follows commands. She is calm and cooperative. She is on closed-circuit trach collar for all practical purposes. Pressure support is set at zero, PEEP set at zero. FiO2 is at 30% blood pressure 122/68, heart rate is fluctuating just over 100. Lungs are distant and clear. Heart, regular rhythm. Abdomen is soft. Extremities without edema LABORATORY DATA: White count 13.7, hemoglobin 11.9, platelets 143,000, electrolytes are unremarkable. IMPRESSION: 1. Respiratory failure associated with COVID pneumonia. 2. Status post tracheostomy. 3. Status post Percutaneous endoscopic gastrostomy tube. 4. Empiric anticoagulation for possible hypercoagulable state associated with COVID. 5. Critical illness myopathy. PLAN: 1. Continue nighttime ventilation, daytime withdrawal of ventilatory support. 2. Range of motion, physical therapy, nutritional support. 3. She is on 20 mg Solu-Medrol daily. We will cut this to 10 mg today. 4. She will continue with Pepcid. 5. The Seroquel appears to work. We will cut the morning dose to 50 mg and give her 100 mg in the evening. Job ID: [id number]
--- NOTE | 2020-02-26 10:19 | PDOC.HOSPP ---
- Subjective Encounter Date: 02/26/20 Subjective: Up in chair. Non-verbal. - Objective Vital Signs & Weight: Vital Signs (12 hours) Temp Pulse Resp BP 02/26/20 08:00 99.3 F 40 H 02/26/20 07:46 112 H 02/26/20 06:00 30 H 02/26/20 04:00 99.5 F 32 H 02/26/20 02:00 29 H 02/26/20 00:38 98 153/73 H 02/26/20 00:00 99.0 F 28 H 02/25/20 22:20 104 H 147/74 H Weight Admit Weight 204 lb Weight 179 lb 0.246 oz Most Recent Monitor Data Heart Rate from ECG 120 NIBP 122/68 NIBP BP-Mean 86 Respiration from ECG 39 SpO2 100 I&O: 02/25/20 02/26/20 02/27/20 06:59 06:59 06:59 Intake Total 1561 1686 530 Output Total 1080 1930 450 Balance 481 -244 80 Result Diagrams: 02/26/20 04:04 02/26/20 04:04 Hospitalist ROS - Medication Medications: Active Medications Generic Name Dose Route Start Last Admin Trade Name Freq PRN Reason Stop Dose Admin Acetaminophen 650 mg 01/27/20 23:28 02/25/20 19:58 Tylenol PO 650 mg Q4H PRN Administration Headache/Fever/Mild Pain (1-3) Apixaban 5 mg 02/25/20 21:00 02/26/20 08:27 Eliquis PO 5 mg BID BOO Administration Famotidine 20 mg 02/15/20 09:00 02/26/20 08:28 Pepcid PER TUBE 20 mg Q12HR BOO Administration Guaifenesin 200 mg 02/07/20 18:00 02/26/20 05:42 Robitussin Sf PER TUBE 200 mg Q6HR BOO Administration Haloperidol Lactate 10 mg 02/23/20 11:30 02/24/20 23:15 Haldol IM 10 mg Q4H PRN Administration Agitation Magnesium Sulfate 2 gm/ Device 50 mls @ 50 mls/hr 01/30/20 12:38 01/31/20 05: 55 IVPB 50 mls DAILYPRN PRN Administration MAG LEVEL < 2.0 Potassium Chloride 40 meq/ 270 mls @ 67.5 mls/hr 01/30/20 13:00 02/26/20 05: 42 Sodium Chloride IVPB 270 mls DAILYPRN PRN Administration K < 4.0 Sodium Chloride 1,000 mls @ 0 mls/hr 02/03/20 15:15 02/03/20 15:29 Normal Saline 0.9% IV 1,000 mls .Q0M BOO Administration KVO Lorazepam 1 mg 02/23/20 11:30 02/24/20 23:15 Ativan SLOW IVP 1 mg Q4H PRN Administration Agitation Senna 1 tab 02/04/20 09:00 02/26/20 08:28 Senokot PO 1 tab BID BOO Administration Sodium Chloride 10 ml 02/07/20 09:00 02/26/20 08:27 Flush - Normal Saline IVF 10 ml Q12HR BOO Administration Sterile Water 2 ml 01/30/20 18:58 02/11/20 08:04 Bacteriostatic Water FS 2 ml PRN PRN Administration RECONSTITUTION - Exam General Appearance: NAD, awake alert Neck - other findings: Trach. Heart: RRR, no murmur, no gallops, no rubs, normal peripheral pulses Respiratory: CTAB, no wheezes, no rales, no ronchi, normal chest expansion, no tachypnea, normal percussion Gastrointestinal: soft, non-tender, non-distended, normal bowel sounds, no palpable masses, no hepatomegaly, no splenomegaly, no bruit Extremities: no cyanosis, no clubbing, no edema Skin: normal turgor Musculoskeletal: generalized weakness Psychiatric: lethargic Hosp A/P (1) COVID-19 Code(s): U07.1 - COVID-19 Status: Acute (2) Acute respiratory failure with hypoxia Code(s): J96.01 - ACUTE RESPIRATORY FAILURE WITH HYPOXIA Status: Acute (3) Hyperlipidemia Code(s): E78.5 - HYPERLIPIDEMIA, UNSPECIFIED Status: Acute (4) Myopathy Code(s): G72.9 - MYOPATHY, UNSPECIFIED Status: Acute (5) Acute metabolic encephalopathy Code(s): G93.41 - METABOLIC ENCEPHALOPATHY Status: Acute - Plan Acute Hypoxic Respiratory Failure: Failed weaning/extubation. Trach placed 5/6. On Nocturnal vent, day spont breathing. Pulm following. Covid 19: Has persistently tested positive. She has been weeks since diagnosis and presumed non-contagious now. Isolation DC'd. Encephalopathy/Myopathy: Due to critical illness. Trach, PEG. On Seroquel with on going weaning. Dispo: Will continue to recheck Covid testing in order to get her to a point of negative results. Will then consider LTACH placement. This patient's entire family had Covid. Her [id number] from it. Trying to keep her closer to home for family visitations.
--- NOTE | 2020-02-26 10:36 | RAD ---
PORTABLE CHEST: Date: 02/26/2020 HISTORY: Follow-up pneumonia. COMPARISON: Prior day's study. FINDINGS: Heart size within normal limits. There are atherosclerotic changes of the aorta. There are some patch y parenchymal lung changes seen, mainly the changes in the left lung base and right upper lobe. Mike es in the right upper lobe appear slightly worsened. IMPRESSION: Suggestion of some slight worsening to the right upper lobe infiltrative lung change. POS: FLORES
[2020-02-26 18:19] LABS: SARS-CoV-2 MS2 Positive; SARS-CoV-2 N Gene Positive; SARS-CoV-2 S Gene Negative; SARS-CoV-2 orf1ab Positive
[2020-02-27] MEDS: Acetaminophen 325 MG TAB PO PRN (00:20)
[2020-02-27 04:25] LABS: Band 1 % (5-11); Eosinophils 2 % (0-10); Lymphocytes 21 % (21-51); MDiff Complete? YES; Mean Corpuscular HGB CONC 32.3 g/dL (32.0-36.0); Mean Corpuscular Hemoglobin 31.7 pg (27.0-31.0); Mean Corpuscular Volume 98.1 fL (78.0-98.0); Mean Platelet Volume 8.7 fL (7.4-10.4); Monocytes 6 % (0-10); Neutrophil 70 % (42-75); Platelet Count 166 thou/uL (130-400); RBC Distribution Width 15.3 % (11.5-14.5); Red Blood Cell (RBC) Count 3.78 mill/uL (4.20-5.40); White Blood Cell (WBC) Count 12.5 thou/uL (4.8-10.8)
[2020-02-27 04:37] LABS: Anion Gap 14 mmol/L (10-20); BUN (Urea Nitrogen) 18 mg/dL (9.8-20.1); Calc. Creatinine Clearance 137 mL/min (70-130); Calcium 9.1 mg/dL (7.8-10.44); Carbon Dioxide 25 mmol/L (23-31); Chloride 103 mmol/L (98-107); Estimated GFR-MDRD Greater than 90; Glucose 105 mg/dL (83-110); Potassium 3.5 mmol/L (3.5-5.1); Sodium 138 mmol/L (136-145)
[2020-02-27] MEDS: Diabetic Tussin 200 MG/10 ML UDCUP PER TUBE SCH ×4 (05:18→23:28)
[2020-02-27] MEDS: Potassium Chloride 40 MEQ in Sodium Chloride 0.9% 250 ML 250 ML IVPB PRN (05:18)
--- NOTE | 2020-02-27 08:13 | RAD ---
EXAM: Portable chest PROVIDED CLINICAL HISTORY: Respiratory insufficiency COMPARISON: 02/26/2020 FINDINGS: Significant interval change with respect to the prior examination is not apparent. IMPRESSION: As above.
--- NOTE | 2020-02-27 08:28 | PRG ---
DATE OF SERVICE: 02/27/2020 SUBJECTIVE: The patient is up in a chair. She is on mechanical ventilation with a small amount of pressure support. She did tolerate trach collar for several hours yesterday. OBJECTIVE: VITAL SIGNS: Her temperature is 98.7, pulse 96, blood pressure 144/76, O2 saturation 100%. HEENT: Unremarkable. NECK: No adenopathy or JVD. LUNGS: Clear anteriorly. CARDIAC: S1 and S2. Regular. ABDOMEN: Soft. EXTREMITIES: Edematous. NEUROLOGIC: She has difficult time with audio visual aids director and moving her legs. LABORATORY DATA: White blood cell count 12.5, hematocrit 37.1, and platelet count 166. Sodium 138, potassium 3.5, chloride 103, CO2 of 25, BUN 18, creatinine 0.5, glucose 105. ASSESSMENT: 1. Acute respiratory failure secondary to COVID-19 pneumonia. The patient is now trached. She is about 4 weeks out of her initial illness and is considered noninfectious. 2. Critical illness myopathy/neuropathy. 3. Lethargy. PLAN: 1. I will go ahead and stop her daytime Seroquel. We will have Physical Therapy see her. Continue ventilation as needed. 2. I will go ahead and give her a couple of lab holidays since her chemistry and CBC look stable. Job ID: [id number]
[2020-02-27] MEDS: methylPREDNISolone Sod Succ 40 MG VIAL IVP SCH (09:23)
[2020-02-27] MEDS: Famotidine 20 MG TAB PER TUBE SCH ×2 (09:23→20:11)
[2020-02-27] MEDS: Apixaban 5 MG TAB PO SCH ×2 (09:23→20:12)
--- NOTE | 2020-02-27 09:38 | PDOC.HOSPP ---
- Subjective Encounter Date: 02/27/20 Encounter Time: 09:36 Subjective: Ms. Harrington was seen today in follow-up of COVID positive pneumonia. She is intubated, and has a trach, and PEG tube. she is awake and alert, but extremely weak. She is sitting up in a Neuro-chair. - Objective Vital Signs & Weight: Vital Signs (12 hours) Temp Pulse Resp BP 02/27/20 08:00 98.2 F 32 H 02/27/20 06:00 27 H 02/27/20 04:00 98.7 F 28 H 02/27/20 03:55 96 02/27/20 02:00 28 H 02/27/20 01:32 103 H 02/27/20 00:00 99.9 F H 30 H 02/26/20 23:00 111 H 111/66 02/26/20 22:00 30 H Weight Admit Weight 204 lb Weight 175 lb 7.807 oz Most Recent Monitor Data Heart Rate from ECG 117 NIBP 142/80 NIBP BP-Mean 100 Respiration from ECG 36 SpO2 100 I&O: 02/26/20 02/27/20 02/28/20 06:59 06:59 06:59 Intake Total 1686 1782 290 Output Total 1930 1930 100 Balance -244 -148 190 Result Diagrams: 02/27/20 03:49 02/27/20 03:49 Hospitalist ROS - Medication Medications: Active Medications Generic Name Dose Route Start Last Admin Trade Name Freq PRN Reason Stop Dose Admin Acetaminophen 650 mg 01/27/20 23:28 02/27/20 00:20 Tylenol PO 650 mg Q4H PRN Administration Headache/Fever/Mild Pain (1-3) Apixaban 5 mg 02/25/20 21:00 02/27/20 09:23 Eliquis PO 5 mg BID BOO Administration Famotidine 20 mg 02/15/20 09:00 02/27/20 09:23 Pepcid PER TUBE 20 mg Q12HR BOO Administration Guaifenesin 200 mg 02/07/20 18:00 02/27/20 05:18 Robitussin Sf PER TUBE 200 mg Q6HR BOO Administration Magnesium Sulfate 2 gm/ Device 50 mls @ 50 mls/hr 01/30/20 12:38 01/31/20 05: 55 IVPB 50 mls DAILYPRN PRN Administration MAG LEVEL < 2.0 Potassium Chloride 40 meq/ 270 mls @ 67.5 mls/hr 01/30/20 13:00 02/27/20 05: 18 Sodium Chloride IVPB 270 mls DAILYPRN PRN Administration K < 4.0 Sodium Chloride 1,000 mls @ 0 mls/hr 02/03/20 15:15 02/03/20 15:29 Normal Saline 0.9% IV 1,000 mls .Q0M BOO Administration KVO Lorazepam 1 mg 02/23/20 11:30 02/24/20 23:15 Ativan SLOW IVP 1 mg Q4H PRN Administration Agitation Methylprednisolone Sodium Succinate 10 mg 02/27/20 09:00 02/27/20 09:23 Solu-Medrol IVP 10 mg DAILY BOO Administration Quetiapine Fumarate 100 mg 02/26/20 21:00 02/26/20 20:06 Seroquel PER TUBE 100 mg HS BOO Administration Senna 1 tab 02/04/20 09:00 02/26/20 20:06 Senokot PO 1 tab BID BOO Administration Sodium Chloride 10 ml 02/07/20 09:00 02/27/20 09:24 Flush - Normal Saline IVF 10 ml Q12HR BOO Administration Sterile Water 2 ml 01/30/20 18:58 02/11/20 08:04 Bacteriostatic Water FS 2 ml PRN PRN Administration RECONSTITUTION - Exam Eye: PERRL, anicteric sclera Heart: RRR, no murmur, no gallops, no rubs, normal peripheral pulses Respiratory: CTAB ( with light rales st the bases), no wheezes, no ronchi Gastrointestinal: soft, non-tender, non-distended, normal bowel sounds, no palpable masses, no hepatomegaly Extremities: no cyanosis, 1+ LE edema Hosp A/P (1) Pneumonia due to COVID-19 virus Code(s): U07.1 - COVID-19; J12.89 - OTHER VIRAL PNEUMONIA Status: Acute (2) Intensive care (ICU) myopathy Code(s): G72.81 - CRITICAL ILLNESS MYOPATHY Status: Acute (3) Acute respiratory failure with hypoxia Code(s): J96.01 - ACUTE RESPIRATORY FAILURE WITH HYPOXIA Status: Acute - Plan * Acute respiratory failure due to COVID -19 Pneumonia- continue supportive care * Continue Solumedrol, and Anticoagulation with Eliquis * She is slowly being weaned from the vent * Nutritional support via PEG tube feeding * Agree with PT for severe weakness due to ICU Myopathy
[2020-02-27] MEDS: Senokot 8.6 MG TAB PO SCH ×2 (10:10→20:13)
[2020-02-27] MEDS: Lorazepam 2 MG/ML VIAL SLOW IVP PRN (16:19)
[2020-02-28] MEDS: Acetaminophen 325 MG TAB PO PRN (01:26)
[2020-02-28] MEDS: Diabetic Tussin 200 MG/10 ML UDCUP PER TUBE SCH ×3 (05:28→18:08)
[2020-02-28] MEDS: Apixaban 5 MG TAB PO SCH ×2 (08:17→20:01)
[2020-02-28] MEDS: Famotidine 20 MG TAB PER TUBE SCH ×2 (08:17→20:01)
[2020-02-28] MEDS: methylPREDNISolone Sod Succ 40 MG VIAL IVP SCH (08:17)
[2020-02-28] MEDS: Senokot 8.6 MG TAB PO SCH ×2 (08:18→20:01)
--- NOTE | 2020-02-28 09:36 | PRG ---
DATE OF SERVICE: 02/28/2020 SUBJECTIVE: She is awake, alert, following commands today, first time I have seen her this awake. OBJECTIVE: VITAL SIGNS: Temperature 99.2, pulse 98, blood pressure 119/58, and O2 saturation 100%. HEENT: Unremarkable. NECK: Trach in good position, some secretions present. CARDIAC: S1 and S2, slightly tachycardic. ABDOMEN: Soft. EXTREMITIES: No edema. LABORATORY DATA: She had a lab holiday today. Her x-ray is unchanged. ASSESSMENT: 1. COVID-19 pneumonia. 2. Status post tracheostomy for prolonged respiratory failure. 3. Severe deconditioning. PLAN: She seems to be better off the daytime dose of Seroquel. I will hold the nighttime dose tonight and see if that makes it even better. Physical therapy has been initiated. She will probably need to have labs checked again in mid week. Job ID: [id number]
--- NOTE | 2020-02-28 09:48 | RAD ---
PORTABLE CHEST: DATE: 02/28/2020. PROVIDED CLINICAL HISTORY: Pneumonia. FINDINGS: Comparison 02/27/2020. Significant interval change with respect to the prior examination is not appare nt. IMPRESSION: As above. POS: LAVERNE
--- NOTE | 2020-02-28 12:13 | PDOC.HOSPP ---
- Subjective Encounter Date: 02/28/20 Encounter Time: 12:10 Subjective: Ms. Harrington was seen today in follow-up of respiratory failure due to COVID positive pneumonia. She is sitting in the Neuro-chair. she is a bit more interactive today. - Objective Vital Signs & Weight: Vital Signs (12 hours) Temp Pulse Resp BP Pulse Ox 02/28/20 12:00 37 H 02/28/20 11:00 99.5 F 02/28/20 10:00 35 H 02/28/20 08:00 99.3 F 33 H 100 02/28/20 06:49 94 126/64 02/28/20 06:00 29 H 02/28/20 04:00 99.2 F 27 H 02/28/20 03:36 79 111/58 L 02/28/20 02:00 24 H Weight Admit Weight 204 lb Weight 178 lb 5.663 oz Most Recent Monitor Data Heart Rate from ECG 123 NIBP 142/85 NIBP BP-Mean 104 Respiration from ECG 37 SpO2 100 I&O: 02/27/20 02/28/20 02/29/20 06:59 06:59 06:59 Intake Total 1782 1795 650 Output Total 1930 990 220 Balance -148 805 430 Result Diagrams: 02/27/20 03:49 02/27/20 03:49 Hospitalist ROS - Medication Medications: Active Medications Generic Name Dose Route Start Last Admin Trade Name Freq PRN Reason Stop Dose Admin Acetaminophen 650 mg 01/27/20 23:28 02/28/20 01:26 Tylenol PO 650 mg Q4H PRN Administration Headache/Fever/Mild Pain (1-3) Apixaban 5 mg 02/25/20 21:00 02/28/20 08:17 Eliquis PO 5 mg BID BOO Administration Famotidine 20 mg 02/15/20 09:00 02/28/20 08:17 Pepcid PER TUBE 20 mg Q12HR BOO Administration Guaifenesin 200 mg 02/07/20 18:00 02/28/20 05:28 Robitussin Sf PER TUBE 200 mg Q6HR BOO Administration Magnesium Sulfate 2 gm/ Device 50 mls @ 50 mls/hr 01/30/20 12:38 01/31/20 05: 55 IVPB 50 mls DAILYPRN PRN Administration MAG LEVEL < 2.0 Potassium Chloride 40 meq/ 270 mls @ 67.5 mls/hr 01/30/20 13:00 02/27/20 05: 18 Sodium Chloride IVPB 270 mls DAILYPRN PRN Administration K < 4.0 Sodium Chloride 1,000 mls @ 0 mls/hr 02/03/20 15:15 02/03/20 15:29 Normal Saline 0.9% IV 1,000 mls .Q0M BOO Administration KVO Lorazepam 1 mg 02/23/20 11:30 02/27/20 16:19 Ativan SLOW IVP 1 mg Q4H PRN Administration Agitation Methylprednisolone Sodium Succinate 10 mg 02/27/20 09:00 02/28/20 08:17 Solu-Medrol IVP 10 mg DAILY BOO Administration Senna 1 tab 02/04/20 09:00 02/28/20 08:18 Senokot PO Not Given BID BOO Sodium Chloride 10 ml 02/07/20 09:00 02/28/20 08:18 Flush - Normal Saline IVF 10 ml Q12HR BOO Administration Sterile Water 2 ml 01/30/20 18:58 02/11/20 08:04 Bacteriostatic Water FS 2 ml PRN PRN Administration RECONSTITUTION - Exam Eye: PERRL Heart: RRR, no murmur, no gallops, no rubs, normal peripheral pulses Respiratory: CTAB (+ coarse breath sounds) Gastrointestinal: soft, non-tender, non-distended, normal bowel sounds, no palpable masses, no hepatomegaly Extremities: no cyanosis, no clubbing, 1+ LE edema Neurological: no focal deficits Musculoskeletal: generalized weakness Hosp A/P (1) Pneumonia due to COVID-19 virus Code(s): U07.1 - COVID-19; J12.89 - OTHER VIRAL PNEUMONIA Status: Acute (2) Intensive care (ICU) myopathy Code(s): G72.81 - CRITICAL ILLNESS MYOPATHY Status: Acute (3) Acute respiratory failure with hypoxia Code(s): J96.01 - ACUTE RESPIRATORY FAILURE WITH HYPOXIA Status: Acute - Plan * Acute respiratory failure due to COVID -19 Pneumonia- continue supportive care * She continues to slowly improve * Continue Solumedrol, and Anticoagulation with Eliquis * Continue weaning * Nutritional support via PEG tube feeding * ICU Myopathy- continue PT/OT
[2020-02-29] MEDS: Diabetic Tussin 200 MG/10 ML UDCUP PER TUBE SCH ×4 (00:49→17:33)
[2020-02-29] MEDS: Senokot 8.6 MG TAB PO SCH ×2 (09:12→20:39)
[2020-02-29] MEDS: Apixaban 5 MG TAB PO SCH ×2 (09:12→20:38)
--- NOTE | 2020-02-29 09:12 | PDOC.HOSPP ---
- Subjective Encounter Date: 02/29/20 Encounter Time: 09:10 Subjective: Ms. Harrington was seen today in follow-up of COVID positive pneumonia. She has a trach, and is clinically stable. No problems noted. - Objective Vital Signs & Weight: Vital Signs (12 hours) Temp Pulse Resp BP 02/29/20 06:58 108 H 155/73 H 02/29/20 06:00 28 H 02/29/20 04:00 99.4 F 32 H 02/29/20 03:56 101 H 02/29/20 02:00 31 H 02/29/20 00:00 98.8 F 34 H 02/28/20 22:47 119 H 148/83 H 02/28/20 22:00 35 H Weight Admit Weight 204 lb Weight 173 lb 11.588 oz Most Recent Monitor Data Heart Rate from ECG 102 NIBP 154/73 NIBP BP-Mean 100 Respiration from ECG 34 SpO2 100 I&O: 02/28/20 02/29/20 03/01/20 06:59 06:59 06:59 Intake Total 1795 2077.2 Output Total 990 1375 Balance 805 702.2 Result Diagrams: 02/27/20 03:49 02/27/20 03:49 Hospitalist ROS - Medication Medications: Active Medications Generic Name Dose Route Start Last Admin Trade Name Freq PRN Reason Stop Dose Admin Acetaminophen 650 mg 01/27/20 23:28 02/28/20 01:26 Tylenol PO 650 mg Q4H PRN Administration Headache/Fever/Mild Pain (1-3) Apixaban 5 mg 02/25/20 21:00 02/28/20 20:01 Eliquis PO 5 mg BID BOO Administration Famotidine 20 mg 02/15/20 09:00 02/28/20 20:01 Pepcid PER TUBE 20 mg Q12HR BOO Administration Guaifenesin 200 mg 02/07/20 18:00 02/29/20 05:37 Robitussin Sf PER TUBE 200 mg Q6HR BOO Administration Magnesium Sulfate 2 gm/ Device 50 mls @ 50 mls/hr 01/30/20 12:38 01/31/20 05: 55 IVPB 50 mls DAILYPRN PRN Administration MAG LEVEL < 2.0 Potassium Chloride 40 meq/ 270 mls @ 67.5 mls/hr 01/30/20 13:00 02/27/20 05: 18 Sodium Chloride IVPB 270 mls DAILYPRN PRN Administration K < 4.0 Sodium Chloride 1,000 mls @ 0 mls/hr 02/03/20 15:15 02/03/20 15:29 Normal Saline 0.9% IV 1,000 mls .Q0M BOO Administration KVO Lorazepam 1 mg 02/23/20 11:30 02/27/20 16:19 Ativan SLOW IVP 1 mg Q4H PRN Administration Agitation Methylprednisolone Sodium Succinate 10 mg 02/27/20 09:00 02/28/20 08:17 Solu-Medrol IVP 10 mg DAILY BOO Administration Senna 1 tab 02/04/20 09:00 02/28/20 20:01 Senokot PO Not Given BID BOO Sodium Chloride 10 ml 02/07/20 09:00 02/28/20 20:01 Flush - Normal Saline IVF 10 ml Q12HR BOO Administration Sterile Water 2 ml 01/30/20 18:58 02/11/20 08:04 Bacteriostatic Water FS 2 ml PRN PRN Administration RECONSTITUTION - Exam Eye: PERRL Heart: RRR, no murmur, no gallops, no rubs, normal peripheral pulses Gastrointestinal: soft, non-tender, non-distended, normal bowel sounds, no palpable masses, no hepatomegaly Extremities: no cyanosis, no edema Hosp A/P (1) Pneumonia due to COVID-19 virus Code(s): U07.1 - COVID-19; J12.89 - OTHER VIRAL PNEUMONIA Status: Acute (2) Intensive care (ICU) myopathy Code(s): G72.81 - CRITICAL ILLNESS MYOPATHY Status: Acute (3) Acute respiratory failure with hypoxia Code(s): J96.01 - ACUTE RESPIRATORY FAILURE WITH HYPOXIA Status: Acute - Plan * Acute respiratory failure due to COVID -19 Pneumonia- continue supportive care * She continues to slowly improve * Continue Solumedrol, and Anticoagulation with Eliquis * Continue weaning * Nutritional support via PEG tube feeding * ICU Myopathy- continue PT/OT
[2020-02-29] MEDS: Famotidine 20 MG TAB PER TUBE SCH ×2 (09:13→20:38)
[2020-02-29] MEDS: methylPREDNISolone Sod Succ 40 MG VIAL IVP SCH (09:14)
--- NOTE | 2020-02-29 16:42 | PRG ---
DATE OF SERVICE: 02/29/2020 SUBJECTIVE: Mckenzie Harrington is more interactive. She is still encephalopathic, but interacts with all the doctors and waves and smiles. She is on 5 of pressure support. We may consider placing on her trach collar in morning. OBJECTIVE: LUNGS: Essentially unchanged. HEART: Essentially unchanged. ABDOMEN: Essentially unchanged. She is not having excessive secretions. LABORATORY DATA: White count 12.5, hemoglobin 12.0, and platelets 166. Electrolytes are unremarkable. IMPRESSION: 1. Status post pneumonia with respiratory failure with critical illness myopathy. 2. Mild resting tachycardia, most likely as a result of this critical illness. She is empirically anticoagulated at this point, so I doubt there is thromboembolic disease that is an issue. We will continue physical therapy and probably retest her for COVID on Saturday mostly for placement reasons. Job ID: [id number]
[2020-03-01] MEDS: Diabetic Tussin 200 MG/10 ML UDCUP PER TUBE SCH ×5 (00:15→23:11)
[2020-03-01] MEDS: Apixaban 5 MG TAB PO SCH ×2 (09:28→21:29)
[2020-03-01] MEDS: methylPREDNISolone Sod Succ 40 MG VIAL IVP SCH (09:28)
[2020-03-01] MEDS: Famotidine 20 MG TAB PER TUBE SCH ×2 (09:28→21:29)
--- NOTE | 2020-03-01 09:39 | PDOC.HOSPP ---
- Subjective Encounter Date: 03/01/20 Encounter Time: 09:37 Subjective: yolis Harrington was seen today in follow-up of COVID positive pneumonia. She is sitting up in the Neuro-chair. She will follow some commands. She tries to mouth speak. - Objective Vital Signs & Weight: Vital Signs (12 hours) Temp Pulse Resp 03/01/20 08:00 23 H 03/01/20 07:45 89 03/01/20 07:00 98.6 F 03/01/20 06:00 24 H 03/01/20 04:00 99.2 F 31 H 03/01/20 03:06 91 03/01/20 02:00 30 H 03/01/20 00:53 105 H 03/01/20 00:00 99.1 F 29 H 02/29/20 22:22 107 H 02/29/20 22:00 32 H Weight Admit Weight 204 lb Weight 170 lb 13.732 oz Most Recent Monitor Data Heart Rate from ECG 119 NIBP 141/87 NIBP BP-Mean 105 Respiration from ECG 33 SpO2 100 I&O: 02/29/20 03/01/20 03/02/20 06:59 06:59 06:59 Intake Total 2077.2 2864 Output Total 1375 792 35 Balance 702.2 2072 -35 Result Diagrams: 02/27/20 03:49 02/27/20 03:49 Additional Labs: Accuchecks 02/29/20 02/29/20 19:03 10:28 POC Glucose 149 H 116 H Hospitalist ROS - Medication Medications: Active Medications Generic Name Dose Route Start Last Admin Trade Name Freq PRN Reason Stop Dose Admin Acetaminophen 650 mg 01/27/20 23:28 02/28/20 01:26 Tylenol PO 650 mg Q4H PRN Administration Headache/Fever/Mild Pain (1-3) Apixaban 5 mg 02/25/20 21:00 03/01/20 09:28 Eliquis PO 5 mg BID BOO Administration Famotidine 20 mg 02/15/20 09:00 03/01/20 09:28 Pepcid PER TUBE 20 mg Q12HR BOO Administration Guaifenesin 200 mg 02/07/20 18:00 03/01/20 05:06 Robitussin Sf PER TUBE 200 mg Q6HR BOO Administration Magnesium Sulfate 2 gm/ Device 50 mls @ 50 mls/hr 01/30/20 12:38 01/31/20 05: 55 IVPB 50 mls DAILYPRN PRN Administration MAG LEVEL < 2.0 Potassium Chloride 40 meq/ 270 mls @ 67.5 mls/hr 01/30/20 13:00 02/27/20 05: 18 Sodium Chloride IVPB 270 mls DAILYPRN PRN Administration K < 4.0 Sodium Chloride 1,000 mls @ 0 mls/hr 02/03/20 15:15 02/03/20 15:29 Normal Saline 0.9% IV 1,000 mls .Q0M BOO Administration KVO Lorazepam 1 mg 02/23/20 11:30 02/27/20 16:19 Ativan SLOW IVP 1 mg Q4H PRN Administration Agitation Methylprednisolone Sodium Succinate 10 mg 02/27/20 09:00 03/01/20 09:28 Solu-Medrol IVP 10 mg DAILY BOO Administration Senna 1 tab 02/04/20 09:00 02/29/20 20:39 Senokot PO Not Given BID BOO Sodium Chloride 10 ml 02/07/20 09:00 03/01/20 09:29 Flush - Normal Saline IVF Not Given Q12HR BOO Sterile Water 2 ml 01/30/20 18:58 02/11/20 08:04 Bacteriostatic Water FS 2 ml PRN PRN Administration RECONSTITUTION - Exam Eye: PERRL Heart: RRR, no murmur, no gallops, no rubs, normal peripheral pulses Respiratory: CTAB, no wheezes, no rales, no ronchi, normal chest expansion Gastrointestinal: soft, non-distended Extremities: no cyanosis, 1+ LE edema Hosp A/P (1) Pneumonia due to COVID-19 virus Code(s): U07.1 - COVID-19; J12.89 - OTHER VIRAL PNEUMONIA Status: Acute (2) Intensive care (ICU) myopathy Code(s): G72.81 - CRITICAL ILLNESS MYOPATHY Status: Acute (3) Acute respiratory failure with hypoxia Code(s): J96.01 - ACUTE RESPIRATORY FAILURE WITH HYPOXIA Status: Acute - Plan * Acute respiratory failure due to COVID -19 Pneumonia- continue supportive care * She had a few runs of SVT reported, but now sinus, there were short,and asymptomatic- will continue to monitor * Continue Solumedrol, and Anticoagulation with Eliquis * Continue weaning * Nutritional support via PEG tube feeding * Check routine labs * ICU Myopathy- continue PT/OT
[2020-03-01 10:10] LABS: #Basophils 0.1 thou/uL (0.0-0.2); #Eosinphils 0.4 thou/uL (0.0-0.7); #Monocytes 0.8 thou/uL (0.11-0.59); %Basophils 0.8 % (0.0-1.0); %Eosinophils 3.2 % (0.0-10.0); %Lymphocytes 17.9 % (21.0-51.0); %Monocytes 7.2 % (0.0-10.0); Hemoglobin 12.6 g/dL (12.0-16.0); Mean Corpuscular HGB CONC 31.2 g/dL (32.0-36.0); Mean Corpuscular Hemoglobin 30.8 pg (27.0-31.0); Mean Corpuscular Volume 98.5 fL (78.0-98.0); Mean Platelet Volume 7.9 fL (7.4-10.4); Platelet Count 253 thou/uL (130-400); RBC Distribution Width 15.2 % (11.5-14.5); Red Blood Cell (RBC) Count 4.09 mill/uL (4.20-5.40); White Blood Cell (WBC) Count 11.3 thou/uL (4.8-10.8)
[2020-03-01 10:28] LABS: Anion Gap 15 mmol/L (10-20); BUN (Urea Nitrogen) 27 mg/dL (9.8-20.1); Calc. Creatinine Clearance 102 mL/min (70-130); Calcium 9.7 mg/dL (7.8-10.44); Carbon Dioxide 23 mmol/L (23-31); Chloride 104 mmol/L (98-107); Estimated GFR-MDRD Greater than 90; Glucose 163 mg/dL (83-110); Potassium 3.8 mmol/L (3.5-5.1); Sodium 138 mmol/L (136-145)
[2020-03-01] MEDS: Senokot 8.6 MG TAB PO SCH ×2 (11:27→21:28)
--- NOTE | 2020-03-01 17:12 | PRG ---
DATE OF SERVICE: 03/01/2020 SUBJECTIVE: Ms. Harrington continues to go on trach collar essentially. We are setting up with pressure support of 5, PEEP of 0, keeping the system close, but again her risk of transmission of COVID is close to zero OBJECTIVE: VITAL SIGNS: Heart rate is in 80s, respiratory rates in the 20s, blood pressure is 131/70. LUNGS: Unchanged. HEART: Unchanged. ABDOMEN: Unchanged. LABORATORY DATA: White count 11.3, hemoglobin 12.6, platelets 253. Electrolytes are normal. BUN 27, creatinine 0.6. IMPRESSION: Status post mechanical ventilation for COVID pneumonia, clinically stable. Probably check a COVID swab again on , mainly for the logistics associated with referral to long-term care hospital. She appears to be stable, and other than having severe myopathy secondary to critical illness, she appears to be doing well. Job ID: [id number]
[2020-03-01] MEDS: Acetaminophen 325 MG TAB PO PRN (18:31)
[2020-03-02] MEDS: Diabetic Tussin 200 MG/10 ML UDCUP PER TUBE SCH ×4 (05:24→23:33)
--- NOTE | 2020-03-02 08:12 | RAD ---
SINGLE VIEW OF THE CHEST: Comparison: 02-28-2020 History: Covid pneumonia. FINDINGS: Single view of the chest shows an enlarged but stable cardiomediastinal silhouette. A tracheostomy is unchanged in position. Diffuse mixed alveolar/interstitial opacities are stable. Degenerative change s are seen in the spine. IMPRESSION: Stable exam. POS: EMILIA
--- NOTE | 2020-03-02 08:53 | PRG ---
DATE OF SERVICE: 03/02/2020 SUBJECTIVE: Mckenzie Harrington is back to 5 of pressure support, no peep. She appears comfortable, minute volume is about 8 L a minute. OBJECTIVE: LUNGS: Unchanged. HEART: Unchanged. ABDOMEN: Unchanged. LABORATORY DATA: White count 11.3 and hemoglobin 12.6 yesterday. There is no lab today. We have discontinued daily lab unless her clinical condition change. ASSESSMENT AND PLAN: I have put in an order for PICC line. Anticipate, she will need long-term acute care at some point. Overall, she appears to be stable. We will redo a COVID screen in the morning. Job ID: [id number]
[2020-03-02] MEDS: Apixaban 5 MG TAB PO SCH ×2 (08:56→20:48)
[2020-03-02] MEDS: methylPREDNISolone Sod Succ 40 MG VIAL IVP SCH (08:57)
[2020-03-02] MEDS: Famotidine 20 MG TAB PER TUBE SCH ×2 (08:57→20:47)
[2020-03-02] MEDS: Senokot 8.6 MG TAB PO SCH ×2 (09:05→20:47)
--- NOTE | 2020-03-02 10:32 | PDOC.HOSPP ---
- Subjective Encounter Date: 03/02/20 Encounter Time: 10:31 Subjective: Ms. Harrington was seen today in follow-up of COVID positive pneumonia. She is more alert today, and much more interactive. - Objective Vital Signs & Weight: Vital Signs (12 hours) Temp Pulse Resp 03/02/20 08:00 29 H 03/02/20 07:29 76 03/02/20 07:00 98.3 F 03/02/20 06:00 17 03/02/20 04:00 22 H 03/02/20 03:34 77 03/02/20 03:00 98.3 F 03/02/20 02:00 19 03/02/20 01:24 75 03/02/20 00:00 20 03/01/20 23:00 98.4 F Weight Admit Weight 204 lb Weight 171 lb 11.841 oz Most Recent Monitor Data Heart Rate from ECG 79 NIBP 121/84 NIBP BP-Mean 96 Respiration from ECG 26 SpO2 100 I&O: 03/01/20 03/02/20 03/03/20 06:59 06:59 06:59 Intake Total 2864 1793 270 Output Total 792 961 75 Balance 2072 832 195 Result Diagrams: 03/01/20 10:01 03/01/20 10:01 Hospitalist ROS - Medication Medications: Active Medications Generic Name Dose Route Start Last Admin Trade Name Freq PRN Reason Stop Dose Admin Acetaminophen 650 mg 01/27/20 23:28 03/01/20 18:31 Tylenol PO 650 mg Q4H PRN Administration Headache/Fever/Mild Pain (1-3) Apixaban 5 mg 02/25/20 21:00 03/02/20 08:56 Eliquis PO Not Given BID BOO Famotidine 20 mg 02/15/20 09:00 03/02/20 08:57 Pepcid PER TUBE 20 mg Q12HR BOO Administration Guaifenesin 200 mg 02/07/20 18:00 03/02/20 05:24 Robitussin Sf PER TUBE 200 mg Q6HR BOO Administration Magnesium Sulfate 2 gm/ Device 50 mls @ 50 mls/hr 01/30/20 12:38 01/31/20 05: 55 IVPB 50 mls DAILYPRN PRN Administration MAG LEVEL < 2.0 Potassium Chloride 40 meq/ 270 mls @ 67.5 mls/hr 01/30/20 13:00 02/27/20 05: 18 Sodium Chloride IVPB 270 mls DAILYPRN PRN Administration K < 4.0 Sodium Chloride 1,000 mls @ 0 mls/hr 02/03/20 15:15 02/03/20 15:29 Normal Saline 0.9% IV 1,000 mls .Q0M BOO Administration KVO Lorazepam 1 mg 02/23/20 11:30 02/27/20 16:19 Ativan SLOW IVP 1 mg Q4H PRN Administration Agitation Methylprednisolone Sodium Succinate 10 mg 02/27/20 09:00 03/02/20 08:57 Solu-Medrol IVP 10 mg DAILY BOO Administration Senna 1 tab 02/04/20 09:00 03/02/20 09:05 Senokot PO Not Given BID BOO Sodium Chloride 10 ml 02/07/20 09:00 03/02/20 09:09 Flush - Normal Saline IVF Not Given Q12HR BOO Sterile Water 2 ml 01/30/20 18:58 02/11/20 08:04 Bacteriostatic Water FS 2 ml PRN PRN Administration RECONSTITUTION - Exam Eye: PERRL, anicteric sclera Heart: RRR, no murmur, no gallops, no rubs, normal peripheral pulses Respiratory: CTAB (with the exception of some occasional rhonchi and coarse breath sounds), rhonchi Gastrointestinal: soft, non-tender, non-distended, normal bowel sounds, no palpable masses, no hepatomegaly Extremities: no cyanosis, no clubbing, 1+ LE edema Hosp A/P (1) Pneumonia due to COVID-19 virus Code(s): U07.1 - COVID-19; J12.89 - OTHER VIRAL PNEUMONIA Status: Acute (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
--- NOTE | 2020-03-02 15:39 | SPC ---
Ultrasound guided right upper extremity PICC placement HISTORY: Patient needs long-term IV antibiotics. Positive COVID. FINDINGS: Informed consent obtained prior to the procedure. An appropriate access site was determined with ultrasound guidance. The area was then meticulously pr epped and draped in usual sterile fashion. Skin overlying the right basilic vein anesthetized with 1% buffered lidocaine. Utilizing direct sonog raphic guidance, vascular access is obtained via the right basilic vein, and an 0.018in guidewire was advanced to the cavoatrial junction. Intravascular length is calculated at 39.5 cm, and the PICC is cut accordingly. Needle is removed and replaced with a peel-away sheath. The PICC was advanced over the wire. Wire and peel-away sheath were removed. The tip of the catheter overlies the cavoatrial junction. The catheter was accessed and aspirated/flushed easily. FINDINGS: Technically successful placement of a 39.5 centimeter dual-lumen 5 [place] right upper extremity PICC line. IMPRESSION: Successful ultrasound guided placement of a right upper extremity PICC.
[2020-03-02] MEDS: Lorazepam 2 MG/ML VIAL SLOW IVP PRN (20:55)
[2020-03-03] MEDS: Diabetic Tussin 200 MG/10 ML UDCUP PER TUBE SCH ×4 (06:10→23:10)
--- NOTE | 2020-03-03 09:23 | PDOC.HOSPP ---
- Subjective Encounter Date: 03/03/20 Encounter Time: 09:21 Subjective: Ms. Harrington was seen today in follow-up of COVID-19 Pneumonia with respiratory failure. She is more than a month out from her diagnosis. She is sitting up in a Neurochair. She is interactive, and following commands. - Objective Vital Signs & Weight: Vital Signs (12 hours) Temp Resp Pulse Ox 03/03/20 08:00 100 03/03/20 07:47 12 03/03/20 07:00 98.5 F 03/03/20 06:00 16 03/03/20 04:00 24 H 03/03/20 03:00 98.7 F 03/03/20 02:00 21 H 03/03/20 00:00 24 H 03/02/20 23:00 98.9 F 03/02/20 22:00 18 Weight Admit Weight 204 lb Weight 170 lb 13.732 oz Most Recent Monitor Data Heart Rate from ECG 90 NIBP 145/78 NIBP BP-Mean 100 Respiration from ECG 27 SpO2 100 I&O: 03/02/20 03/03/20 03/04/20 06:59 06:59 06:59 Intake Total 1793 3039.7 270 Output Total 961 1115 75 Balance 832 1924.7 195 Result Diagrams: 03/01/20 10:01 03/01/20 10:01 Hospitalist ROS - Medication Medications: Active Medications Generic Name Dose Route Start Last Admin Trade Name Freq PRN Reason Stop Dose Admin Acetaminophen 650 mg 01/27/20 23:28 03/01/20 18:31 Tylenol PO 650 mg Q4H PRN Administration Headache/Fever/Mild Pain (1-3) Apixaban 5 mg 02/25/20 21:00 03/02/20 20:48 Eliquis PO 5 mg BID BOO Administration Famotidine 20 mg 02/15/20 09:00 03/02/20 20:47 Pepcid PER TUBE 20 mg Q12HR BOO Administration Guaifenesin 200 mg 02/07/20 18:00 03/03/20 06:10 Robitussin Sf PER TUBE 200 mg Q6HR BOO Administration Magnesium Sulfate 2 gm/ Device 50 mls @ 50 mls/hr 01/30/20 12:38 01/31/20 05: 55 IVPB 50 mls DAILYPRN PRN Administration MAG LEVEL < 2.0 Potassium Chloride 40 meq/ 270 mls @ 67.5 mls/hr 01/30/20 13:00 02/27/20 05: 18 Sodium Chloride IVPB 270 mls DAILYPRN PRN Administration K < 4.0 Sodium Chloride 1,000 mls @ 0 mls/hr 02/03/20 15:15 02/03/20 15:29 Normal Saline 0.9% IV 1,000 mls .Q0M BOO Administration KVO Lorazepam 1 mg 02/23/20 11:30 03/02/20 20:55 Ativan SLOW IVP 1 mg Q4H PRN Administration Agitation Methylprednisolone Sodium Succinate 10 mg 02/27/20 09:00 03/02/20 08:57 Solu-Medrol IVP 10 mg DAILY BOO Administration Senna 1 tab 02/04/20 09:00 03/02/20 20:47 Senokot PO 1 tab BID BOO Administration Sodium Chloride 10 ml 02/07/20 09:00 03/02/20 20:48 Flush - Normal Saline IVF 10 ml Q12HR BOO Administration Sterile Water 2 ml 01/30/20 18:58 02/11/20 08:04 Bacteriostatic Water FS 2 ml PRN PRN Administration RECONSTITUTION - Exam Eye: PERRL, anicteric sclera Heart: RRR, no murmur, no gallops, no rubs, normal peripheral pulses Respiratory: CTAB (with coarse breath sounds) Gastrointestinal: soft, non-tender, non-distended, normal bowel sounds, no palpable masses Extremities: no cyanosis, 1+ LE edema (trace pedal edema) Hosp A/P (1) Pneumonia due to COVID-19 virus Code(s): U07.1 - COVID-19; J12.89 - OTHER VIRAL PNEUMONIA Status: Acute (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
[2020-03-03] MEDS: Senokot 8.6 MG TAB PO SCH ×2 (09:55→20:55)
[2020-03-03] MEDS: Famotidine 20 MG TAB PER TUBE SCH ×2 (09:55→21:10)
[2020-03-03] MEDS: Apixaban 5 MG TAB PO SCH ×2 (09:55→21:11)
[2020-03-03] MEDS: methylPREDNISolone Sod Succ 40 MG VIAL IVP SCH (09:56)
[2020-03-03 18:34] LABS: SARS-CoV-2 MS2 Positive; SARS-CoV-2 N Gene Negative; SARS-CoV-2 S Gene Negative; SARS-CoV-2 orf1ab Negative
--- NOTE | 2020-03-03 18:52 | PRG ---
DATE OF SERVICE: 03/03/2020 SUBJECTIVE: Mckenzie Harrington continues to do well with minimal pressure support during the day. She is more alert each day. She is more cooperative. She can get her elbows off her chair today and lift them up in the air. OBJECTIVE: VITAL SIGNS: Heart rate is in the 70s, blood pressure 113/59, respiratory rate is 23. LUNGS: Clear. HEART: Regular rhythm. ABDOMEN: Soft. LABORATORY DATA: White count 11.3 two days ago. We will start doing lab every other day on her. PLAN: We will discontinue her steroids at this point. She is on Eliquis empirically for anticoagulation. I probably would anticoagulate her another 1 to 3 months. For some reason, COVID serology done early this morning, still not back. We will continue nutritional support, physical therapy and daytime T-collar trials. Job ID: [id number]
[2020-03-03] MEDS: Lorazepam 2 MG/ML VIAL SLOW IVP PRN (23:10)
[2020-03-04] MEDS: Diabetic Tussin 200 MG/10 ML UDCUP PER TUBE SCH ×4 (05:53→23:21)
[2020-03-04] MEDS: Senokot 8.6 MG TAB PO SCH ×2 (07:44→21:03)
[2020-03-04] MEDS: Apixaban 5 MG TAB PO SCH ×2 (07:46→21:02)
[2020-03-04] MEDS: Famotidine 20 MG TAB PER TUBE SCH ×2 (07:46→21:02)
--- NOTE | 2020-03-04 09:47 | PRG ---
DATE OF SERVICE: SUBJECTIVE: This morning, she is on the vent, pressure support, awake and responsive. Denies any pain, though she appears she maybe slightly encephalopathic. OBJECTIVE: VITAL SIGNS: Her sats are 100%, respirations 24, blood pressure 145/75, pulse 80. CHEST: No wheezing or crackles. CARDIAC: Normal S1 and S2. No gallops. ABDOMEN: No masses. ASSESSMENT AND PLAN: Status post respiratory failure, coronavirus positive, acute respiratory distress syndrome, pneumonia, severe deconditioning. She is on Eliquis prophylactically. Continue aggressive PT. She may require LTAC. Make a decision next week. We will follow. Job ID: [id number]
--- NOTE | 2020-03-04 10:25 | PDOC.HOSPP ---
- Subjective Encounter Date: 03/04/20 Encounter Time: 10:24 Subjective: Ms. Harrington was seen today in follow-up of respiratory failure due to COVID-19. She is sitting up in a Neuro-chair. She is following commands. She appears a bit stronger each day. - Objective Vital Signs & Weight: Vital Signs (12 hours) Temp Pulse Resp BP 03/04/20 08:00 23 H 03/04/20 07:00 99.4 F 03/04/20 06:50 94 133/75 03/04/20 05:54 22 H 03/04/20 04:00 98.9 F 17 03/04/20 02:35 85 123/70 03/04/20 02:00 24 H 03/04/20 00:00 98.5 F 25 H 03/03/20 22:28 95 114/71 Weight Admit Weight 204 lb Weight 168 lb 10.458 oz Most Recent Monitor Data Heart Rate from ECG 110 NIBP 145/75 NIBP BP-Mean 98 Respiration from ECG 24 SpO2 100 I&O: 03/03/20 03/04/20 03/05/20 06:59 06:59 06:59 Intake Total 1959.7 1530 270 Output Total 1115 1325 80 Balance 844.7 205 190 Result Diagrams: 03/01/20 10:01 03/01/20 10:01 Hospitalist ROS - Medication Medications: Active Medications Generic Name Dose Route Start Last Admin Trade Name Freq PRN Reason Stop Dose Admin Acetaminophen 650 mg 01/27/20 23:28 03/01/20 18:31 Tylenol PO 650 mg Q4H PRN Administration Headache/Fever/Mild Pain (1-3) Apixaban 5 mg 02/25/20 21:00 03/04/20 07:46 Eliquis PO 5 mg BID BOO Administration Famotidine 20 mg 02/15/20 09:00 03/04/20 07:46 Pepcid PER TUBE 20 mg Q12HR BOO Administration Guaifenesin 200 mg 02/07/20 18:00 03/04/20 05:53 Robitussin Sf PER TUBE 200 mg Q6HR BOO Administration Magnesium Sulfate 2 gm/ Device 50 mls @ 50 mls/hr 01/30/20 12:38 01/31/20 05: 55 IVPB 50 mls DAILYPRN PRN Administration MAG LEVEL < 2.0 Potassium Chloride 40 meq/ 270 mls @ 67.5 mls/hr 01/30/20 13:00 02/27/20 05: 18 Sodium Chloride IVPB 270 mls DAILYPRN PRN Administration K < 4.0 Sodium Chloride 1,000 mls @ 0 mls/hr 02/03/20 15:15 02/03/20 15:29 Normal Saline 0.9% IV 1,000 mls .Q0M BOO Administration KVO Lorazepam 1 mg 02/23/20 11:30 03/03/20 23:10 Ativan SLOW IVP 1 mg Q4H PRN Administration Agitation Senna 1 tab 02/04/20 09:00 03/04/20 07:44 Senokot PO Not Given BID BOO Sodium Chloride 10 ml 02/07/20 09:00 03/04/20 07:46 Flush - Normal Saline IVF 10 ml Q12HR BOO Administration Sterile Water 2 ml 01/30/20 18:58 02/11/20 08:04 Bacteriostatic Water FS 2 ml PRN PRN Administration RECONSTITUTION - Exam Eye: PERRL, anicteric sclera ENT: normocephalic atraumatic Heart: RRR, no murmur, no gallops, no rubs, normal peripheral pulses Respiratory: CTAB, no wheezes, no rales, no ronchi, normal chest expansion, no tachypnea, normal percussion Gastrointestinal: soft, non-tender, non-distended, normal bowel sounds, no palpable masses Extremities: no cyanosis, no clubbing, 1+ LE edema Hosp A/P (1) Pneumonia due to COVID-19 virus Code(s): U07.1 - COVID-19; J12.89 - OTHER VIRAL PNEUMONIA Status: Acute (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
[2020-03-04] MEDS: Lactated Ringer's 1,000 ML IV SCH (13:57)
[2020-03-05] MEDS: Lactated Ringer's 1,000 ML IV SCH ×2 (01:41→20:43)
[2020-03-05] MEDS: Diabetic Tussin 200 MG/10 ML UDCUP PER TUBE SCH ×4 (05:29→23:49)
[2020-03-05] MEDS: Apixaban 5 MG TAB PO SCH ×2 (09:57→20:48)
[2020-03-05] MEDS: Famotidine 20 MG TAB PER TUBE SCH ×2 (09:57→20:48)
[2020-03-05] MEDS: Senokot 8.6 MG TAB PO SCH ×2 (10:00→20:48)
--- NOTE | 2020-03-05 11:52 | PRG ---
DATE OF SERVICE: 03/05/2020 HISTORY OF PRESENT ILLNESS: Ms. Harrington is a 74-year-old female, who was admitted to the hospital with pneumonia and respiratory failure secondary to COVID. Following a very long course, she has cleared her COVID, and second confirmatory test is still pending. She has had placement of a tracheostomy and remains on the ventilator at night with low pressure support during the day. She is receiving tube feedings. She is awake and nods her head and follows simple commands, although there seems to be a bit of a processing issue or hearing issue. She denies pain. PHYSICAL EXAMINATION: VITAL SIGNS: Current blood pressure 150/84, heart rate 106, she is on 30% oxygen by ventilator via trach with pressure support of 5. GENERAL: She is not in acute distress and is sitting in a chair. She is awake and follows very simple commands such as squeeze my hands. RESPIRATORY: Trach site shows mild amount of purulent drainage, and she has a junky cough with similar-appearing secretions. She has no adenopathy. LUNGS: Show coarse rhonchi. She is unlabored with vent settings as above. ABDOMEN: Soft. There is no organomegaly. Bowel sounds are normal. EXTREMITIES: Show no cyanosis, clubbing, or edema. LABORATORY DATA: None today. IMPRESSION: Respiratory failure secondary to COVID pneumonia, very slowly resolving, although still requiring tracheostomy, and nighttime ventilatory support. PLAN: We will continue daytime low pressure support ventilation with rate during the night. I do not see a lot of utility in converting her to trach collar during the day as it breaks a circuit and gives increased difficulty in suctioning. Hopefully, we can get to the point that she is on continuous pressure support. Followup COVID test is pending, and she may be a candidate for transfer to LTAC later this week. Job ID: [id number]
[2020-03-05] MEDS: Acetaminophen 325 MG TAB PO PRN (14:52)
--- NOTE | 2020-03-05 16:21 | PDOC.HOSPP ---
- Subjective Encounter Date: 03/05/20 Encounter Time: 11:20 Subjective: No acute events; nods for any qs.. low press vent support - Objective Vital Signs & Weight: Vital Signs (12 hours) Pulse Resp BP 03/05/20 14:00 32 H 03/05/20 12:00 33 H 03/05/20 10:59 102 H 150/84 H 03/05/20 10:00 28 H 03/05/20 08:00 26 H 03/05/20 07:53 85 130/73 03/05/20 06:00 22 H Weight Admit Weight 204 lb Weight 169 lb Most Recent Monitor Data Heart Rate from ECG 99 NIBP 152/94 NIBP BP-Mean 113 Respiration from ECG 29 SpO2 100 I&O: 03/04/20 03/05/20 03/06/20 06:59 06:59 06:59 Intake Total 1530 3047 Output Total 1325 1920 Balance 205 1127 Result Diagrams: 03/01/20 10:01 03/01/20 10:01 Hospitalist ROS - Medication Medications: Active Medications Generic Name Dose Route Start Last Admin Trade Name Freq PRN Reason Stop Dose Admin Acetaminophen 650 mg 01/27/20 23:28 03/05/20 14:52 Tylenol PO 650 mg Q4H PRN Administration Headache/Fever/Mild Pain (1-3) Apixaban 5 mg 02/25/20 21:00 03/05/20 09:57 Eliquis PO 5 mg BID BOO Administration Famotidine 20 mg 02/15/20 09:00 03/05/20 09:57 Pepcid PER TUBE 20 mg Q12HR BOO Administration Guaifenesin 200 mg 02/07/20 18:00 03/05/20 12:55 Robitussin Sf PER TUBE 200 mg Q6HR BOO Administration Magnesium Sulfate 2 gm/ Device 50 mls @ 50 mls/hr 01/30/20 12:38 01/31/20 05: 55 IVPB 50 mls DAILYPRN PRN Administration MAG LEVEL < 2.0 Potassium Chloride 40 meq/ 270 mls @ 67.5 mls/hr 01/30/20 13:00 02/27/20 05: 18 Sodium Chloride IVPB 270 mls DAILYPRN PRN Administration K < 4.0 Sodium Chloride 1,000 mls @ 0 mls/hr 02/03/20 15:15 02/03/20 15:29 Normal Saline 0.9% IV 1,000 mls .Q0M BOO Administration KVO Lactated Ringer's 1,000 mls @ 70 mls/hr 03/04/20 13:45 03/05/20 01:41 Lactated Ringer's IV 1,000 mls .[id number] BOO Administration Senna 1 tab 02/04/20 09:00 03/05/20 10:00 Senokot PO Not Given BID BOO Sodium Chloride 10 ml 02/07/20 09:00 03/05/20 09:58 Flush - Normal Saline IVF 10 ml Q12HR BOO Administration Sterile Water 2 ml 01/30/20 18:58 02/11/20 08:04 Bacteriostatic Water FS 2 ml PRN PRN Administration RECONSTITUTION - Exam General Appearance: ill appearing General - other findings: on vent Eye: PERRL ENT: normocephalic atraumatic Neck: supple Heart: RRR Respiratory: no rales, normal chest expansion Gastrointestinal: soft, normal bowel sounds Neurological: no focal deficits Hosp A/P - Plan (1) Pneumonia due to COVID-19 virus (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 full code
[2020-03-06] MEDS: Diabetic Tussin 200 MG/10 ML UDCUP PER TUBE SCH ×3 (05:17→17:35)
[2020-03-06] MEDS: Senokot 8.6 MG TAB PO SCH (08:57)
[2020-03-06] MEDS: Apixaban 5 MG TAB PO SCH ×2 (08:57→20:51)
[2020-03-06] MEDS: Famotidine 20 MG TAB PER TUBE SCH ×2 (08:58→20:51)
--- NOTE | 2020-03-06 12:31 | PDOC.HOSPP ---
- Subjective Encounter Date: 03/06/20 Encounter Time: 10:10 Subjective: no acute events, valeria'g TF. - Objective Vital Signs & Weight: Vital Signs (12 hours) Temp Pulse Resp BP Pulse Ox 03/06/20 10:33 87 119/64 03/06/20 10:00 21 H 03/06/20 08:00 98.8 F 19 96 03/06/20 07:03 96 130/63 03/06/20 04:00 99.0 F 14 03/06/20 02:09 82 116/67 03/06/20 02:00 18 Weight Admit Weight 204 lb Weight 170 lb 6.424 oz Most Recent Monitor Data Heart Rate from ECG 83 NIBP 107/61 NIBP BP-Mean 76 Respiration from ECG 19 SpO2 95 I&O: 03/05/20 03/06/20 03/07/20 06:59 06:59 06:59 Intake Total 3047 2413 580 Output Total 1920 2075 455 Balance 1127 338 125 Result Diagrams: 03/01/20 10:01 03/01/20 10:01 Hospitalist ROS - Medication Medications: Active Medications Generic Name Dose Route Start Last Admin Trade Name Freq PRN Reason Stop Dose Admin Acetaminophen 650 mg 01/27/20 23:28 03/05/20 14:52 Tylenol PO 650 mg Q4H PRN Administration Headache/Fever/Mild Pain (1-3) Apixaban 5 mg 02/25/20 21:00 03/06/20 08:57 Eliquis PO 5 mg BID BOO Administration Famotidine 20 mg 02/15/20 09:00 03/06/20 08:58 Pepcid PER TUBE 20 mg Q12HR BOO Administration Guaifenesin 200 mg 02/07/20 18:00 03/06/20 11:42 Robitussin Sf PER TUBE 200 mg Q6HR BOO Administration Magnesium Sulfate 2 gm/ Device 50 mls @ 50 mls/hr 01/30/20 12:38 01/31/20 05: 55 IVPB 50 mls DAILYPRN PRN Administration MAG LEVEL < 2.0 Potassium Chloride 40 meq/ 270 mls @ 67.5 mls/hr 01/30/20 13:00 02/27/20 05: 18 Sodium Chloride IVPB 270 mls DAILYPRN PRN Administration K < 4.0 Sodium Chloride 1,000 mls @ 0 mls/hr 02/03/20 15:15 02/03/20 15:29 Normal Saline 0.9% IV 1,000 mls .Q0M BOO Administration KVO Senna 1 tab 02/04/20 09:00 03/06/20 08:57 Senokot PO Not Given BID BOO Sodium Chloride 10 ml 02/07/20 09:00 03/06/20 08:57 Flush - Normal Saline IVF 10 ml Q12HR BOO Administration Sterile Water 2 ml 01/30/20 18:58 02/11/20 08:04 Bacteriostatic Water FS 2 ml PRN PRN Administration RECONSTITUTION Hosp A/P - Plan (1) Pneumonia due to COVID-19 virus (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 full code
--- NOTE | 2020-03-06 14:09 | PRG ---
DATE OF SERVICE: 03/06/2020 SUBJECTIVE: Ms. Harrington continues to have very slow recovery as she has been on CPAP with pressure support via her tracheostomy. She is trying to talk, and I have had a difficult time understanding her. She denies pain, nausea, or vomiting. OBJECTIVE: VITAL SIGNS: Blood pressure today 107/61, heart rate is 83, respiratory rate 19, pulse ox is 95%. GENERAL: She is awake and follows commands. HEENT: She has some tacky mucous membranes. Tracheostomy is without bloody drainage, although small amounts of purulent secretions are seen. She is trying to talk. LUNGS: Show rhonchi bilaterally. HEART: Regular rate and rhythm without murmur. ABDOMEN: Soft. There is no organomegaly. Bowel sounds are normal. EXTREMITIES: She moves all extremities appropriately, both spontaneously and to command. LABORATORY DATA: Not obtained today. Repeat COVID is pending. IMPRESSION: Hypoxic respiratory failure secondary to COVID pneumonia. She is clinically improving and is to the point of being freed from the ventilator. PLAN: At this point, we will convert her from ventilator at CPAP and pressure support to trach collar. I think that soon we can get SPEECH involved and try to get a speaking valve. She is already getting therapy. She would be a candidate for transfer to a rehab facility once her second COVID test is negative. Job ID: [id number]
[2020-03-06 16:44] LABS: SARS-CoV-2 MS2 Positive; SARS-CoV-2 N Gene Positive; SARS-CoV-2 S Gene Negative; SARS-CoV-2 orf1ab Positive
[2020-03-07] MEDS: Diabetic Tussin 200 MG/10 ML UDCUP PER TUBE SCH ×4 (00:13→18:34)
[2020-03-07] MEDS: Senokot 8.6 MG TAB PO SCH ×3 (00:49→20:10)
[2020-03-07] MEDS: Famotidine 20 MG TAB PER TUBE SCH ×2 (09:08→20:10)
[2020-03-07] MEDS: Apixaban 5 MG TAB PO SCH ×2 (09:09→20:10)
--- NOTE | 2020-03-07 14:26 | PDOC.HOSPP ---
- Subjective Encounter Date: 03/07/20 Encounter Time: 11:24 Subjective: staffs in the room, cleaning her up. afebrile, wbcs trending down.[11] - Objective Vital Signs & Weight: Vital Signs (12 hours) Temp Pulse Pulse BP BP Pulse Ox Pulse Ox 03/07/20 12:00 98.5 F 100 03/07/20 10:05 130 H 121 H 118/95 H 136/86 100 03/07/20 08:00 98.7 F 100 03/07/20 04:00 99.0 F Pulse Ox 03/07/20 12:00 03/07/20 10:05 100 03/07/20 08:00 03/07/20 04:00 Weight Admit Weight 204 lb Weight 171 lb 15.369 oz Most Recent Monitor Data Heart Rate from ECG 123 NIBP 109/69 NIBP BP-Mean 82 Respiration from ECG 28 SpO2 100 I&O: 03/06/20 03/07/20 03/08/20 06:59 06:59 06:59 Intake Total 2413 1920 480 Output Total 20740 200 Balance 338 -160 280 Result Diagrams: 03/01/20 10:01 03/01/20 10:01 Hospitalist ROS - Medication Medications: Active Medications Generic Name Dose Route Start Last Admin Trade Name Freq PRN Reason Stop Dose Admin Acetaminophen 650 mg 01/27/20 23:28 03/05/20 14:52 Tylenol PO 650 mg Q4H PRN Administration Headache/Fever/Mild Pain (1-3) Apixaban 5 mg 02/25/20 21:00 03/07/20 09:09 Eliquis PO 5 mg BID BOO Administration Famotidine 20 mg 02/15/20 09:00 03/07/20 09:08 Pepcid PER TUBE 20 mg Q12HR BOO Administration Guaifenesin 200 mg 02/07/20 18:00 03/07/20 12:44 Robitussin Sf PER TUBE 200 mg Q6HR BOO Administration Magnesium Sulfate 2 gm/ Device 50 mls @ 50 mls/hr 01/30/20 12:38 01/31/20 05: 55 IVPB 50 mls DAILYPRN PRN Administration MAG LEVEL < 2.0 Potassium Chloride 40 meq/ 270 mls @ 67.5 mls/hr 01/30/20 13:00 02/27/20 05: 18 Sodium Chloride IVPB 270 mls DAILYPRN PRN Administration K < 4.0 Sodium Chloride 1,000 mls @ 0 mls/hr 02/03/20 15:15 02/03/20 15:29 Normal Saline 0.9% IV 1,000 mls .Q0M BOO Administration KVO Quetiapine Fumarate 25 mg 03/06/20 17:03 03/06/20 20:51 Seroquel PO 03/16/20 17:04 25 mg HS PRN Administration Insomnia Senna 1 tab 02/04/20 09:00 03/07/20 09:09 Senokot PO 1 tab BID BOO Administration Sodium Chloride 10 ml 02/07/20 09:00 03/07/20 09:09 Flush - Normal Saline IVF 10 ml Q12HR BOO Administration Sterile Water 2 ml 01/30/20 18:58 02/11/20 08:04 Bacteriostatic Water FS 2 ml PRN PRN Administration RECONSTITUTION - Exam General Appearance: NAD, awake alert Eye: PERRL ENT: normocephalic atraumatic Neck: supple Heart: RRR Respiratory: CTAB, normal chest expansion Gastrointestinal: soft, normal bowel sounds Neurological: no focal deficits Hosp A/P - Plan (1) Pneumonia due to COVID-19 virus (2) 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 full code
--- NOTE | 2020-03-07 21:59 | PRG ---
DATE OF SERVICE: 03/07/2020 SUBJECTIVE: Ms. Harrington is clinically unchanged. Hemodynamics are stable. We set up 3 hours this morning. She was started back on Seroquel. This will need to be watched closely because we did have her on Seroquel last weekend and she was too somnolent with Seroquel, so it was eventually stopped. OBJECTIVE: VITAL SIGNS: Heart rates in the one teens. Blood pressure 130/75, respiratory rates in the 20s. LUNGS: Clear. HEART: Regular rhythm. ABDOMEN: Soft. EXTREMITIES: Without asymmetry. LABORATORY DATA: White count 1.3, hemoglobin 12.6, platelets 253. Sodium 138, potassium 3.8, chloride 104, bicarb 23, BUN 27, creatinine 0.6. IMPRESSION: 1. COVID-19 pneumonia, clinically stable. Awaiting placement in long-term acute care. 2. Critical illness myopathy, slowly improving. Job ID: [id number]
[2020-03-08] MEDS: Diabetic Tussin 200 MG/10 ML UDCUP PER TUBE SCH ×5 (00:08→23:36)
[2020-03-08] MEDS: Famotidine 20 MG TAB PER TUBE SCH ×2 (09:24→20:18)
[2020-03-08] MEDS: Apixaban 5 MG TAB PO SCH ×2 (09:24→20:18)
[2020-03-08] MEDS: Senokot 8.6 MG TAB PO SCH ×2 (09:24→20:18)
[2020-03-08] MEDS ORDERED: Lactated Ringer's 250 ML IVPB SCH (12:45)
--- NOTE | 2020-03-08 14:49 | PDOC.HOSPP ---
- Subjective Encounter Date: 03/08/20 Encounter Time: 12:10 non-verbal Subjective: dtr at bedside, talked to her briefly. pt remained the same, on cpap, low press support, TF and IVF running at 50ml/hr for maintenance. very dark urine. - Objective Vital Signs & Weight: Vital Signs (12 hours) Temp Pulse Pulse BP BP Pulse Ox 03/08/20 10:25 104 H 114 H 153/95 H 138/88 03/08/20 08:00 100 03/08/20 07:00 98.7 F 03/08/20 04:00 98.6 F Weight Admit Weight 204 lb Weight 170 lb 13.732 oz Most Recent Monitor Data Heart Rate from ECG 124 NIBP 142/114 NIBP BP-Mean 123 Respiration from ECG 14 SpO2 100 I&O: 03/07/20 03/08/20 03/09/20 06:59 06:59 06:59 Intake Total 1920 1630 330 Output Total 2080 850 265 Balance -160 780 65 Result Diagrams: 03/01/20 10:01 03/01/20 10:01 Hospitalist ROS - Medication Medications: Active Medications Generic Name Dose Route Start Last Admin Trade Name Freq PRN Reason Stop Dose Admin Acetaminophen 650 mg 01/27/20 23:28 03/05/20 14:52 Tylenol PO 650 mg Q4H PRN Administration Headache/Fever/Mild Pain (1-3) Apixaban 5 mg 02/25/20 21:00 03/08/20 09:24 Eliquis PO 5 mg BID BOO Administration Famotidine 20 mg 02/15/20 09:00 03/08/20 09:24 Pepcid PER TUBE 20 mg Q12HR BOO Administration Guaifenesin 200 mg 02/07/20 18:00 03/08/20 13:31 Robitussin Sf PER TUBE 200 mg Q6HR BOO Administration Magnesium Sulfate 2 gm/ Device 50 mls @ 50 mls/hr 01/30/20 12:38 01/31/20 05: 55 IVPB 50 mls DAILYPRN PRN Administration MAG LEVEL < 2.0 Potassium Chloride 40 meq/ 270 mls @ 67.5 mls/hr 01/30/20 13:00 02/27/20 05: 18 Sodium Chloride IVPB 270 mls DAILYPRN PRN Administration K < 4.0 Sodium Chloride 1,000 mls @ 0 mls/hr 02/03/20 15:15 02/03/20 15:29 Normal Saline 0.9% IV 1,000 mls .Q0M BOO Administration KVO Quetiapine Fumarate 25 mg 03/06/20 17:03 03/08/20 13:38 Seroquel PO 03/16/20 17:04 25 mg HS PRN Administration Insomnia Senna 1 tab 02/04/20 09:00 03/08/20 09:24 Senokot PO 1 tab BID BOO Administration Sodium Chloride 10 ml 02/07/20 09:00 03/08/20 13:32 Flush - Normal Saline IVF 10 ml Q12HR BOO Administration Sterile Water 2 ml 01/30/20 18:58 02/11/20 08:04 Bacteriostatic Water FS 2 ml PRN PRN Administration RECONSTITUTION - Exam General Appearance: ill appearing General - other findings: vent Eye: PERRL Neck: supple, symmetric Heart: irregular Respiratory: normal chest expansion, rales, wheezes Gastrointestinal: soft, normal bowel sounds Skin - other findings: ecymoses Neurological: no focal deficits Psychiatric: A&O x 3 Hosp A/P - Plan (1) Pneumonia due to COVID-19 virus (2) 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
[2020-03-08] MEDS: ALPRAZolam 0.25 MG TAB PER TUBE PRN (15:22)
--- NOTE | 2020-03-08 16:52 | PRG ---
DATE OF SERVICE: 03/08/2020 SUBJECTIVE: Mckenzie Harrington is very anxious and upset that she cannot go home. I explained to her that she cannot walk, so she cannot go home. Other than that, she is stable. We have added alprazolam. She gets anxious. She gets tachycardic. OBJECTIVE: VITAL SIGNS: Blood pressure this afternoon is 123/82. LUNGS: Unchanged. HEART: Unchanged. ABDOMEN: Unchanged. PLAN: There is not any lab in a week, so we will order a lab in the morning. We will also repeat a COVID test in the morning. Job ID: [id number]
[2020-03-09 04:15] LABS: Eosinophils 2 % (0-10); Hemoglobin 10.9 g/dL (12.0-16.0); Lymphocytes 13 % (21-51); MDiff Complete? YES; Mean Corpuscular HGB CONC 31.8 g/dL (32.0-36.0); Mean Corpuscular Hemoglobin 31.2 pg (27.0-31.0); Mean Corpuscular Volume 97.9 fL (78.0-98.0); Mean Platelet Volume 8.1 fL (7.4-10.4); Monocytes 6 % (0-10); Neutrophil 79 % (42-75); Platelet Count 343 thou/uL (130-400); Platelet Morphology Comment Appears Adequate; RBC Distribution Width 14.4 % (11.5-14.5); Red Blood Cell (RBC) Count 3.48 mill/uL (4.20-5.40); White Blood Cell (WBC) Count 11.2 thou/uL (4.8-10.8)
[2020-03-09 04:18] LABS: Anion Gap 13 mmol/L (10-20); BUN (Urea Nitrogen) 21 mg/dL (9.8-20.1); Calc. Creatinine Clearance 125 mL/min (70-130); Calcium 9.1 mg/dL (7.8-10.44); Carbon Dioxide 28 mmol/L (23-31); Chloride 102 mmol/L (98-107); Estimated GFR-MDRD Greater than 90; Glucose 117 mg/dL (83-110); Magnesium 1.8 mg/dL (1.6-2.6); Potassium 3.5 mmol/L (3.5-5.1); Sodium 139 mmol/L (136-145)
[2020-03-09] MEDS: Magnesium 2 GM/50 ML 2 GM in Premix Bag 1 BAG IVPB PRN (05:01)
[2020-03-09] MEDS: Diabetic Tussin 200 MG/10 ML UDCUP PER TUBE SCH ×4 (05:17→23:56)
[2020-03-09] MEDS: Potassium Chloride 40 MEQ in Sodium Chloride 0.9% 250 ML 250 ML IVPB PRN (05:17)
[2020-03-09] MEDS: Famotidine 20 MG TAB PER TUBE SCH ×2 (09:34→20:47)
[2020-03-09] MEDS: Apixaban 5 MG TAB PO SCH ×2 (09:34→20:47)
[2020-03-09] MEDS: Senokot 8.6 MG TAB PO SCH ×2 (09:34→20:48)
[2020-03-09 11:25] LABS: SARS-CoV-2 MS2 Positive; SARS-CoV-2 N Gene Positive; SARS-CoV-2 S Gene Positive; SARS-CoV-2 orf1ab Positive
[2020-03-09] MEDS ORDERED: Lactated Ringer's 250 ML IV SCH (11:30)
--- NOTE | 2020-03-09 14:18 | PDOC.HOSPP ---
- Subjective Encounter Date: 03/09/20 Encounter Time: 10:40 Subjective: urine output around 30ml/hr after LR bolus yesterday, labs wbcs around 11 and nl creatinine. pt has cough and congestion, intermittent suctioning, discussed with RN, will give maintenance fluid/ hydration and to make sure she gets reasonable urine output. - Objective Vital Signs & Weight: Vital Signs (12 hours) Temp Pulse Ox 03/09/20 08:00 98.9 F 100 03/09/20 07:22 100 03/09/20 04:00 98.8 F Weight Admit Weight 204 lb Weight 171 lb 1.259 oz Most Recent Monitor Data Heart Rate from ECG 100 NIBP 136/113 NIBP BP-Mean 120 Respiration from ECG 17 SpO2 100 I&O: 03/08/20 03/09/20 03/10/20 06:59 06:59 06:59 Intake Total 1630 3577.5 1230 Output Total 850 1345 310 Balance 780 2232.5 920 Result Diagrams: 03/09/20 03:29 03/09/20 03:29 Hospitalist ROS - Medication Medications: Active Medications Generic Name Dose Route Start Last Admin Trade Name Freq PRN Reason Stop Dose Admin Acetaminophen 650 mg 01/27/20 23:28 03/05/20 14:52 Tylenol PO 650 mg Q4H PRN Administration Headache/Fever/Mild Pain (1-3) Alprazolam 0.25 mg 03/08/20 13:58 03/08/20 15:22 Xanax PER TUBE 0.25 mg QID PRN Administration Anxiety Apixaban 5 mg 02/25/20 21:00 03/09/20 09:34 Eliquis PO 5 mg BID BOO Administration Famotidine 20 mg 02/15/20 09:00 03/09/20 09:34 Pepcid PER TUBE 20 mg Q12HR BOO Administration Guaifenesin 200 mg 02/07/20 18:00 03/09/20 12:32 Robitussin Sf PER TUBE 200 mg Q6HR BOO Administration Magnesium Sulfate 2 gm/ Device 50 mls @ 50 mls/hr 01/30/20 12:38 03/09/20 05: 01 IVPB 50 mls DAILYPRN PRN Administration MAG LEVEL < 2.0 Potassium Chloride 40 meq/ 270 mls @ 67.5 mls/hr 01/30/20 13:00 03/09/20 05: 17 Sodium Chloride IVPB 270 mls DAILYPRN PRN Administration K < 4.0 Sodium Chloride 1,000 mls @ 0 mls/hr 02/03/20 15:15 02/03/20 15:29 Normal Saline 0.9% IV 1,000 mls .Q0M BOO Administration KVO Quetiapine Fumarate 25 mg 03/06/20 17:03 03/08/20 13:38 Seroquel PO 03/16/20 17:04 25 mg HS PRN Administration Insomnia Senna 1 tab 02/04/20 09:00 03/09/20 09:34 Senokot PO 1 tab BID BOO Administration Sodium Chloride 10 ml 02/07/20 09:00 03/09/20 09:35 Flush - Normal Saline IVF 10 ml Q12HR BOO Administration Sterile Water 2 ml 01/30/20 18:58 02/11/20 08:04 Bacteriostatic Water FS 2 ml PRN PRN Administration RECONSTITUTION - Exam General Appearance: NAD, awake alert Eye: PERRL ENT: normocephalic atraumatic Neck: supple Heart: RRR Respiratory: normal chest expansion, rales, rhonchi Gastrointestinal: soft, normal bowel sounds Neurological: no focal deficits Hosp A/P - Plan (1) Pneumonia due to COVID-19 virus (2) 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 * labs reviewed --wbcs pretty much remains the same around - cxr of - stable interstitial infilterate -pt remained afebrile - differ abx unless clinical course changes. Anxiety -xanx prn TF - tolerating it. pending COVID - repeat -[prior repeat was neg. as of test] have to decide whether rehab is an option, pt prefers to go home? full code
--- NOTE | 2020-03-09 17:57 | PRG ---
DATE OF SERVICE: 03/09/2020 SUBJECTIVE: Mckenzie Harrington actually looks really good today. OBJECTIVE: GENERAL: She is in no distress. VITAL SIGNS: Heart rate is in the 90s, blood pressure 130/82, and respiratory rates in the teens. LUNGS: Unchanged. HEART: Unchanged. ABDOMEN: Unchanged. LABORATORY DATA: White count 11.2, hemoglobin 10.9, and platelets 343. Electrolytes are normal, creatinine is 0.49. COVID screen is still positive. IMPRESSION AND PLAN: COVID-19 pneumonia with tracheostomy and percutaneous endoscopic gastrostomy, clinically stable. I will try to change her tracheostomy to a #6 fenestrated here in the next few days. Overall, she is stable. by phone. He is planning to come visit her tomorrow morning. Job ID: [id number]
[2020-03-10] MEDS: Diabetic Tussin 200 MG/10 ML UDCUP PER TUBE SCH ×4 (05:25→23:35)
[2020-03-10] MEDS: Senokot 8.6 MG TAB PO SCH ×2 (09:42→20:08)
[2020-03-10] MEDS: Apixaban 5 MG TAB PO SCH ×2 (09:42→20:07)
[2020-03-10] MEDS: Famotidine 20 MG TAB PER TUBE SCH ×2 (09:42→20:08)
--- NOTE | 2020-03-10 10:32 | PRG ---
DATE OF SERVICE: 03/10/2020 SUBJECTIVE: Mckenzie Harrington is awake. She wants to go home. OBJECTIVE: VITAL SIGNS: Blood pressure 137/88, heart rate 104, respiratory rates in the 20s. LUNGS: Unchanged. HEART: Unchanged. ABDOMEN: Unchanged. LABORATORY DATA: White count 11.2 yesterday. There is no CBC today. No electrolytes today. IMPRESSION: 1. Critical illness myopathy, improving. 2. Status post trach and PEG for COVID-19 pneumonia complicated by critical illness myopathy. Hopefully, we can get physical therapy twice a day and if we can get her to a point where she is walking short distances, she can go home. I plan to downsize her trach to a #6 fenestrated cuffless trach tomorrow. Job ID: [id number]
[2020-03-10 14:24] VITALS: BMI 28.3
--- NOTE | 2020-03-10 14:37 | PDOC.HOSPP ---
- Subjective Encounter Date: 03/10/20 Encounter Time: 10:50 Subjective: pt looks much better, more alert, communicating with writing, hard to read her writing but it appears that she is improving enough that we can send her Home w.. HHC vs.. rehab. repeat COVID test +Ve spouse at bedside. pt prefers to go home?. - Objective Vital Signs & Weight: Vital Signs (12 hours) Temp Pulse Pulse BP BP Pulse Ox Pulse Ox 03/10/20 12:00 98.4 F 03/10/20 09:50 95 89 116/70 122/75 100 03/10/20 08:00 98.6 F 98 03/10/20 07:08 100 03/10/20 04:00 98.6 F Pulse Ox 03/10/20 12:00 03/10/20 09:50 98 03/10/20 08:00 03/10/20 07:08 03/10/20 04:00 Weight Admit Weight 204 lb Weight 169 lb 15.622 oz Most Recent Monitor Data Heart Rate from ECG 100 NIBP 129/76 NIBP BP-Mean 93 Respiration from ECG 31 SpO2 100 I&O: 03/09/20 03/10/20 03/11/20 06:59 06:59 06:59 Intake Total 3577.5 2750 980 Output Total 1345 1520 355 Balance 2232.5 1230 625 Result Diagrams: 03/09/20 03:29 03/09/20 03:29 Hospitalist ROS - Medication Medications: Active Medications Generic Name Dose Route Start Last Admin Trade Name Freq PRN Reason Stop Dose Admin Acetaminophen 650 mg 01/27/20 23:28 03/05/20 14:52 Tylenol PO 650 mg Q4H PRN Administration Headache/Fever/Mild Pain (1-3) Alprazolam 0.25 mg 03/08/20 13:58 03/08/20 15:22 Xanax PER TUBE 0.25 mg QID PRN Administration Anxiety Apixaban 5 mg 02/25/20 21:00 03/10/20 09:42 Eliquis PO 5 mg BID BOO Administration Famotidine 20 mg 02/15/20 09:00 03/10/20 09:42 Pepcid PER TUBE 20 mg Q12HR BOO Administration Guaifenesin 200 mg 02/07/20 18:00 03/10/20 14:13 Robitussin Sf PER TUBE Not Given Q6HR BOO Magnesium Sulfate 2 gm/ Device 50 mls @ 50 mls/hr 01/30/20 12:38 03/09/20 05: 01 IVPB 50 mls DAILYPRN PRN Administration MAG LEVEL < 2.0 Potassium Chloride 40 meq/ 270 mls @ 67.5 mls/hr 01/30/20 13:00 03/09/20 05: 17 Sodium Chloride IVPB 270 mls DAILYPRN PRN Administration K < 4.0 Sodium Chloride 1,000 mls @ 0 mls/hr 02/03/20 15:15 02/03/20 15:29 Normal Saline 0.9% IV 1,000 mls .Q0M BOO Administration KVO Quetiapine Fumarate 25 mg 03/06/20 17:03 03/09/20 20:47 Seroquel PO 03/16/20 17:04 25 mg HS PRN Administration Insomnia Senna 1 tab 02/04/20 09:00 03/10/20 09:42 Senokot PO 1 tab BID BOO Administration Sodium Chloride 10 ml 02/07/20 09:00 03/10/20 09:43 Flush - Normal Saline IVF 10 ml Q12HR BOO Administration - Exam General Appearance: NAD, awake alert Eye: PERRL ENT: normocephalic atraumatic Neck: supple Heart: RRR Respiratory: normal chest expansion, rales Respiratory - other findings: trach Gastrointestinal: soft, normal bowel sounds Hosp A/P - Plan (1) Pneumonia due to COVID-19 virus (2) 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 * labs reviewed --wbcs pretty much remains the same around 11 - cxr of - stable interstitial infilterate -pt remained afebrile - differ abx unless clinical course changes. Anxiety -xanx prn TF - tolerating it. pending COVID - repeat -[prior repeat was neg. as of test] cuff size going to be reduced tomorrow?? repeat COVID +ve it appears our [facility] re[facility] may take the pt, as physicians and staffs aware of her being here for > 40 days. other rehabs may not take her d/t repeat tests being positive. so either our [facility] vs.. home.
[2020-03-11] MEDS: Diabetic Tussin 200 MG/10 ML UDCUP PER TUBE SCH ×4 (05:19→20:49)
[2020-03-11] MEDS: Famotidine 20 MG TAB PER TUBE SCH ×2 (08:09→20:48)
[2020-03-11] MEDS: Senokot 8.6 MG TAB PO SCH ×2 (08:10→20:48)
[2020-03-11] MEDS: Apixaban 5 MG TAB PO SCH ×2 (08:10→20:48)
--- NOTE | 2020-03-11 14:08 | PDOC.HOSPP ---
- Subjective Encounter Date: 03/11/20 Encounter Time: 12:00 Subjective: pt not seen today. labs and meds reviewed. - Objective Vital Signs & Weight: Vital Signs (12 hours) Temp Pulse Ox 03/11/20 12:00 98.8 F 03/11/20 08:00 100 03/11/20 07:18 100 03/11/20 07:00 98.7 F 03/11/20 04:00 98.4 F Weight Admit Weight 204 lb Weight 170 lb 3.15 oz Most Recent Monitor Data Heart Rate from ECG 94 NIBP 110/60 NIBP BP-Mean 76 Respiration from ECG 20 SpO2 98 I&O: 03/10/20 03/11/20 03/12/20 06:59 06:59 06:59 Intake Total 2750 1820 2040 Output Total 1520 980 276 Balance 8068 081 1705 Result Diagrams: 03/09/20 03:29 03/09/20 03:29 Hospitalist ROS - Medication Medications: Active Medications Generic Name Dose Route Start Last Admin Trade Name Freq PRN Reason Stop Dose Admin Acetaminophen 650 mg 01/27/20 23:28 03/05/20 14:52 Tylenol PO 650 mg Q4H PRN Administration Headache/Fever/Mild Pain (1-3) Alprazolam 0.25 mg 03/08/20 13:58 03/08/20 15:22 Xanax PER TUBE 0.25 mg QID PRN Administration Anxiety Apixaban 5 mg 02/25/20 21:00 03/11/20 08:10 Eliquis PO 5 mg BID BOO Administration Famotidine 20 mg 02/15/20 09:00 03/11/20 08:09 Pepcid PER TUBE 20 mg Q12HR BOO Administration Guaifenesin 200 mg 02/07/20 18:00 03/11/20 11:11 Robitussin Sf PER TUBE 200 mg Q6HR BOO Administration Magnesium Sulfate 2 gm/ Device 50 mls @ 50 mls/hr 01/30/20 12:38 03/09/20 05: 01 IVPB 50 mls DAILYPRN PRN Administration MAG LEVEL < 2.0 Potassium Chloride 40 meq/ 270 mls @ 67.5 mls/hr 01/30/20 13:00 03/09/20 05: 17 Sodium Chloride IVPB 270 mls DAILYPRN PRN Administration K < 4.0 Sodium Chloride 1,000 mls @ 0 mls/hr 02/03/20 15:15 02/03/20 15:29 Normal Saline 0.9% IV 1,000 mls .Q0M BOO Administration KVO Quetiapine Fumarate 25 mg 03/06/20 17:03 03/10/20 20:08 Seroquel PO 03/16/20 17:04 25 mg HS PRN Administration Insomnia Senna 1 tab 02/04/20 09:00 03/11/20 08:10 Senokot PO Not Given BID BOO Sodium Chloride 10 ml 02/07/20 09:00 03/11/20 08:16 Flush - Normal Saline IVF 10 ml Q12HR BOO Administration Hosp A/P - Plan (1) Pneumonia due to COVID-19 virus (2) 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 * labs reviewed --wbcs pretty much remains the same around 11 - cxr of - stable interstitial infilterate -pt remained afebrile - differ abx unless clinical course changes. Anxiety -xanx prn TF - tolerating it. pending COVID - repeat -[prior repeat was neg. as of test] cuff size going to be reduced tomorrow?? repeat COVID +ve it appears our [facility] re[facility] may take the pt, as physicians and staffs aware of her being here for > 40 days. other rehabs may not take her d/t repeat tests being positive. so either our [facility] vs[facility] home. - nd followed peripherally today -- did not visit her.
[2020-03-11 14:32] VITALS: BP 106/55
--- NOTE | 2020-03-11 21:59 | PRG ---
DATE OF SERVICE: 03/11/2020 Mckenzie Harrington's #8 trach was changed to #6 fenestrated. The speaking valve was placed, today this was done without difficulty. The old tracheostomy tube was removed intact. All sutures were removed. She was happy to be able to talk again. She is actually smiling more every day. She is being evaluated to go into local rehab now fortunately. Job ID: [id number]
[2020-03-12] MEDS: Diabetic Tussin 200 MG/10 ML UDCUP PER TUBE SCH ×3 (05:04→17:27)
[2020-03-12] MEDS: Apixaban 5 MG TAB PO SCH ×2 (09:23→20:49)
[2020-03-12] MEDS: Senokot 8.6 MG TAB PO SCH ×2 (09:23→20:49)
[2020-03-12] MEDS: Famotidine 20 MG TAB PER TUBE SCH ×2 (09:23→20:49)
[2020-03-12] MEDS: ALPRAZolam 0.25 MG TAB PER TUBE PRN (09:23)
--- NOTE | 2020-03-12 11:13 | PRG ---
DATE OF SERVICE: 03/12/2020 SUBJECTIVE: Mckenzie Harrington is doing well. She is actually able to lift her legs straight out in front of her now when sitting in a chair. She is still quite weak and unsteady standing. OBJECTIVE: VITAL SIGNS: She is afebrile, heart rate is 90, blood pressure is 120/72. LUNGS: Unchanged. HEART: Unchanged. ABDOMEN: Unchanged. IMPRESSION AND PLAN: Status post COVID pneumonia. We downsized her trach yesterday. She is doing well. She at some point needs to have a repeat swallowing evaluation. We will continue to follow. Job ID: [id number]
--- NOTE | 2020-03-12 11:36 | PDOC.HOSPP ---
- Subjective Encounter Date: 03/12/20 Encounter Time: 11:34 Subjective: Ms. Harrington was seen today in follow-up of respiratory failure due to COVID pneumonia. She is much improved since I saw her last. She is very talkative. Her is at the bedside. - Objective Vital Signs & Weight: Vital Signs (12 hours) Temp Pulse Ox 03/12/20 08:00 100 03/12/20 07:40 99 03/12/20 07:00 98.3 F 03/12/20 03:00 98 F Weight Admit Weight 204 lb Weight 170 lb 6.677 oz Most Recent Monitor Data Heart Rate from ECG 89 NIBP 120/72 NIBP BP-Mean 88 Respiration from ECG 22 SpO2 100 I&O: 03/11/20 03/12/20 03/13/20 06:59 06:59 06:59 Intake Total 1820 3360 440 Output Total 980 1616 105 Balance 840 1744 335 Result Diagrams: 03/09/20 03:29 03/09/20 03:29 Hospitalist ROS - Medication Medications: Active Medications Generic Name Dose Route Start Last Admin Trade Name Freq PRN Reason Stop Dose Admin Acetaminophen 650 mg 01/27/20 23:28 03/05/20 14:52 Tylenol PO 650 mg Q4H PRN Administration Headache/Fever/Mild Pain (1-3) Alprazolam 0.25 mg 03/08/20 13:58 03/12/20 09:23 Xanax PER TUBE 0.25 mg QID PRN Administration Anxiety Apixaban 5 mg 02/25/20 21:00 03/12/20 09:23 Eliquis PO 5 mg BID BOO Administration Famotidine 20 mg 02/15/20 09:00 03/12/20 09:23 Pepcid PER TUBE 20 mg Q12HR BOO Administration Guaifenesin 200 mg 02/07/20 18:00 03/12/20 05:04 Robitussin Sf PER TUBE 200 mg Q6HR BOO Administration Magnesium Sulfate 2 gm/ Device 50 mls @ 50 mls/hr 01/30/20 12:38 03/09/20 05: 01 IVPB 50 mls DAILYPRN PRN Administration MAG LEVEL < 2.0 Potassium Chloride 40 meq/ 270 mls @ 67.5 mls/hr 01/30/20 13:00 03/09/20 05: 17 Sodium Chloride IVPB 270 mls DAILYPRN PRN Administration K < 4.0 Sodium Chloride 1,000 mls @ 0 mls/hr 02/03/20 15:15 02/03/20 15:29 Normal Saline 0.9% IV 1,000 mls .Q0M BOO Administration KVO Quetiapine Fumarate 25 mg 03/06/20 17:03 03/11/20 20:48 Seroquel PO 03/16/20 17:04 25 mg HS PRN Administration Insomnia Senna 1 tab 02/04/20 09:00 03/12/20 09:23 Senokot PO 1 tab BID BOO Administration Sodium Chloride 10 ml 02/07/20 09:00 03/12/20 09:24 Flush - Normal Saline IVF 10 ml Q12HR BOO Administration - Exam Eye: PERRL, anicteric sclera Heart: RRR, no murmur, no gallops, no rubs, normal peripheral pulses Respiratory: CTAB (+ occasional rhonchi) Gastrointestinal: soft, non-tender, non-distended, normal bowel sounds, no palpable masses Extremities: no cyanosis, no clubbing, no edema Skin: normal turgor, no lesions Hosp A/P (1) Pneumonia due to COVID-19 virus Code(s): U07.1 - COVID-19; J12.89 - OTHER VIRAL PNEUMONIA Status: Acute (2) 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 She has been fitted with a Speaking valve * Continue the weaning process as per PCCM * Nutritional support via PEG tube feeding * Continue PT/OT for ICU myopathy * She is awaiting Rehab placement * Check routine lab work in the AM
[2020-03-13] MEDS: Diabetic Tussin 200 MG/10 ML UDCUP PER TUBE SCH ×3 (00:43→11:14)
[2020-03-13] MEDS: Acetaminophen 325 MG TAB PO PRN (02:48)
[2020-03-13] MEDS: ALPRAZolam 0.25 MG TAB PER TUBE PRN ×2 (02:48→09:11)
[2020-03-13 03:51] LABS: #Basophils 0.1 thou/uL (0.0-0.2); #Eosinphils 0.3 thou/uL (0.0-0.7); #Lymphocytes 1.5 thou/uL (1.20-3.40); #Monocytes 0.9 thou/uL (0.11-0.59); #Neutrophils 6.3 thou/uL (1.40-6.50); %Basophils 0.6 % (0.0-1.0); %Eosinophils 3.3 % (0.0-10.0); %Lymphocytes 17.1 % (21.0-51.0); %Monocytes 9.6 % (0.0-10.0); %Neutrophils 69.4 % (42.0-75.0); Hemoglobin 10.6 g/dL (12.0-16.0); Mean Corpuscular HGB CONC 31.7 g/dL (32.0-36.0); Mean Corpuscular Volume 97.8 fL (78.0-98.0); Mean Platelet Volume 7.6 fL (7.4-10.4); Platelet Count 289 thou/uL (130-400); RBC Distribution Width 14.1 % (11.5-14.5); Red Blood Cell (RBC) Count 3.41 mill/uL (4.20-5.40)
[2020-03-13 04:08] LABS: Anion Gap 11 mmol/L (10-20); BUN (Urea Nitrogen) 22 mg/dL (9.8-20.1); Calc. Creatinine Clearance 125 mL/min (70-130); Calcium 8.8 mg/dL (7.8-10.44); Carbon Dioxide 28 mmol/L (23-31); Chloride 102 mmol/L (98-107); Estimated GFR-MDRD Greater than 90; Glucose 102 mg/dL (83-110); Potassium 3.6 mmol/L (3.5-5.1); Sodium 137 mmol/L (136-145)
[2020-03-13] MEDS: Potassium Chloride 40 MEQ in Sodium Chloride 0.9% 250 ML 250 ML IVPB PRN (05:18)
[2020-03-13] MEDS ORDERED: Metoprolol Tartrate 5 MG/5 ML VIAL IVP SCH (06:15)
[2020-03-13] MEDS: Famotidine 20 MG TAB PER TUBE SCH (08:08)
[2020-03-13] MEDS: Apixaban 5 MG TAB PO SCH (08:09)
[2020-03-13] MEDS: Senokot 8.6 MG TAB PO SCH (08:09)
--- NOTE | 2020-03-13 10:58 | PDOC.HOSPP ---
- Subjective Encounter Date: 03/13/20 Encounter Time: 10:55 Subjective: Ms. Harrington was seen today in follow-up of COVID positive pneumonia. She complains of pain in her right foot. She says it hurts on the top. No other major complaints. - Objective Vital Signs & Weight: Vital Signs (12 hours) Temp Pulse Ox 03/13/20 08:00 98.4 F 100 03/13/20 07:13 99 03/13/20 04:00 98.5 F 03/13/20 00:00 98.5 F Weight Admit Weight 204 lb Weight 170 lb 6.677 oz Most Recent Monitor Data Heart Rate from ECG 101 NIBP 103/74 NIBP BP-Mean 83 Respiration from ECG 20 SpO2 100 I&O: 03/12/20 03/13/20 03/14/20 06:59 06:59 06:59 Intake Total 3360 2800 650 Output Total 1616 1420 180 Balance 1744 1380 470 Result Diagrams: 03/13/20 03:30 03/13/20 03:30 Hospitalist ROS - Medication Medications: Active Medications Generic Name Dose Route Start Last Admin Trade Name Freq PRN Reason Stop Dose Admin Acetaminophen 650 mg 01/27/20 23:28 03/13/20 02:48 Tylenol PO 650 mg Q4H PRN Administration Headache/Fever/Mild Pain (1-3) Alprazolam 0.25 mg 03/08/20 13:58 03/13/20 09:11 Xanax PER TUBE 0.25 mg QID PRN Administration Anxiety Apixaban 5 mg 02/25/20 21:00 03/13/20 08:09 Eliquis PO 5 mg BID BOO Administration Famotidine 20 mg 02/15/20 09:00 03/13/20 08:08 Pepcid PER TUBE 20 mg Q12HR BOO Administration Guaifenesin 200 mg 02/07/20 18:00 03/13/20 05:19 Robitussin Sf PER TUBE 200 mg Q6HR BOO Administration Magnesium Sulfate 2 gm/ Device 50 mls @ 50 mls/hr 01/30/20 12:38 03/09/20 05: 01 IVPB 50 mls DAILYPRN PRN Administration MAG LEVEL < 2.0 Potassium Chloride 40 meq/ 270 mls @ 67.5 mls/hr 01/30/20 13:00 03/13/20 05: 18 Sodium Chloride IVPB 270 mls DAILYPRN PRN Administration K < 4.0 Sodium Chloride 1,000 mls @ 0 mls/hr 02/03/20 15:15 02/03/20 15:29 Normal Saline 0.9% IV 1,000 mls .Q0M BOO Administration KVO Quetiapine Fumarate 25 mg 03/06/20 17:03 03/12/20 20:49 Seroquel PO 03/16/20 17:04 25 mg HS PRN Administration Insomnia Senna 1 tab 02/04/20 09:00 03/13/20 08:09 Senokot PO 1 tab BID BOO Administration Sodium Chloride 10 ml 02/07/20 09:00 03/13/20 08:09 Flush - Normal Saline IVF 10 ml Q12HR BOO Administration - Exam Eye: PERRL, anicteric sclera Heart: RRR, no murmur, no gallops, no rubs, normal peripheral pulses Respiratory: CTAB, rhonchi (+ occasional rhonchi) Gastrointestinal: soft, non-tender, non-distended, normal bowel sounds, no palpable masses, no hepatomegaly Extremities: no cyanosis (+ good distal pulses, bilaterally, good capillary refill, + hypesthesia on the dorsum of the right foot, mildly erythematous, and slightly warm), no edema Hosp A/P (1) Pneumonia due to COVID-19 virus Code(s): U07.1 - COVID-19; J12.89 - OTHER VIRAL PNEUMONIA Status: Acute (2) 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 related to COVID infection- clinically her circulation is intact. * Continue PT/OT for ICU myopathy * She is awaiting Rehab placement- hopefully today
--- NOTE | 2020-03-13 13:11 | RAD ---
EXAM: RIGHT FOOT TWO VIEWS: History: Right foot pain. FINDINGS: Minimal soft tissue swelling. No acute fracture or dislocation. IMPRESSION: Mild soft tissue swelling and minimal degenerative change without acute fracture or dislocation. POS: [facility]
--- NOTE | 2020-03-13 13:16 | RAD ---
EXAM RIGHT ANKLE TWO VIEWS: History: Right ankle pain. FINDINGS/IMPRESSION: Mild anterior soft tissue swelling. Degenerative enthesophytic changes including the calcaneal planta r and calcaneal Achilles regions. No acute fracture or dislocation. POS: [facility]
--- NOTE | 2020-03-13 13:59 | PRG ---
DATE OF SERVICE: 03/13/2020 SUBJECTIVE: Mckenzie Harrington is stable to transfer rehab. She communicates . OBJECTIVE: VITAL SIGNS: She is in no distress. LUNGS: Unchanged. HEART: Unchanged. ABDOMEN: Unchanged. LABORATORY DATA: White count is 9, hemoglobin 10.6, platelets 289. Electrolytes are unremarkable. Creatinine is 0.4. PLAN: I would recommend continuing anticoagulation for 3 total months. There is no data on this, but there is abundant evolving data about with what appears to be her hypercoagulable state associated with COVID-19. Obviously, there are no randomized control studies, but as long as she is watched closely in the inpatient environment, I would continue with Machelle. I would not remove her tracheostomy until she is independent in an ambulatory and passes a swallowing evaluation. Job ID: [id number]
[2020-03-13 15:32] VITALS: TEMP 99.2
--- NOTE | 2020-03-14 11:03 | DIS ---
DATE OF ADMISSION: 01/27/2020 DATE OF DISCHARGE: 03/13/2020 DISCHARGE DISPOSITION: Inpatient rehab. DISCHARGE DIAGNOSES: 1. Acute hypoxic respiratory failure due to COVID-19 pneumonia. 2. Status post trach and PEG. DISCHARGE MEDICATIONS: Include; 1. Eliquis 5 mg p.o. twice a day. 2. Aspirin 81 mg daily. 3. Protonix 40 mg daily. 4. Seroquel 25 mg at bedtime. 5. Senokot 8.6 mg twice a day. CODE STATUS: Full code. ALLERGIES: AMOXICILLIN, CODEINE, AND POTASSIUM CLAVULANATE. PROCEDURES DONE DURING THE HOSPITAL STAY: The patient had a tracheostomy placed as well as a PEG tube placed. HOSPITAL COURSE: Ms. Harrington is a pleasant 74-year-old female, who originally presented to the [facility] on January 22 due to cough, fever, and shortness of breath. She had multiple COVID positive contacts in her household. She was treated with supportive care. However, after approximately 4 to 5 days in the hospital, she began having increased oxygen requirements and she decompensated and required intubation. She was then transferred to our facility for higher level of pulmonary support. She was treated supportively over the course of the next week and seen by the coach cleaner. She had a protracted stay on mechanical ventilation and had to have a tracheostomy and a PEG tube placed. She slowly improved over the course of the next few days and was able to be successfully weaned from the ventilator. This was after a PEG tube and tracheostomy were placed. She was severely weak, however, from a long ICU stay and developed ICU myopathy, aggressive physical therapy was undertaken and she continued to improve. At the time of discharge, she was talking, moving all extremities, very excited to go to the next step in her care. She had been fitted for a speaking valve in the tracheostomy and is being transitioned to the inpatient rehab facility for further treatment. Job ID: [id number]
--- NOTE | 2020-03-18 23:30 | EKG ---
Test Reason : STAT Blood Pressure : / mmHG Vent. Rate : 164 BPM Atrial Rate : 164 BPM P-R Int : 146 ms QRS Dur : 080 ms QT Int : 216 ms P-R-T Axes : 036 033 044 degrees QTc Int : 356 ms Sinus tachycardia Nonspecific ST and T wave abnormality Abnormal ECG No previous ECGs available Confirmed by Leila STEPHENS ([id number]) on 03/18/2020 11:30:18 PM Referred By: [place] Confirmed By:Leila STEPHENS
== END 2020-03-13 14:15 | DRG 4 ==
LOC: CCU 21:09
PROVIDERS: ADMIT Internal Medicine; ATTEND Internal Medicine
PROC: 5A1955Z Respiratory Ventilation, Greater than 96 Consecutive Hours (ICD-10-PCS; principal; 2020-01-27)
PROC: 8E0ZXY6 Isolation (ICD-10-PCS; 2020-01-27)
PROC: 0B968ZZ Drainage of Right Lower Lobe Bronchus, Via Natural or Artificial Opening Endoscopic (ICD-10-PCS; 2020-02-07)
PROC: 0B918ZZ Drainage of Trachea, Via Natural or Artificial Opening Endoscopic (ICD-10-PCS; 2020-02-07)
PROC: 0B113F4 Bypass Trachea to Cutaneous with Tracheostomy Device, Percutaneous Approach (ICD-10-PCS; 2020-02-24)
PROC: 0DH63UZ Insertion of Feeding Device into Stomach, Percutaneous Approach (ICD-10-PCS; 2020-02-24)
PROC: 02HV33Z Insertion of Infusion Device into Superior Vena Cava, Percutaneous Approach (ICD-10-PCS; 2020-03-02)
PROC: B548ZZA Ultrasonography of Superior Vena Cava, Guidance (ICD-10-PCS; 2020-03-02)
PROC: 0B21XFZ Change Tracheostomy Device in Trachea, External Approach (ICD-10-PCS; 2020-03-11)
DX: A41.89 Other specified sepsis (principal); U07.1 COVID-19; J12.89 Other viral pneumonia; G93.41 Metabolic encephalopathy; J96.01 Acute respiratory failure with hypoxia; G72.81 Critical illness myopathy; E46 Unspecified protein-calorie malnutrition; H91.90 Unspecified hearing loss, unspecified ear; E78.5 Hyperlipidemia, unspecified; I10 Essential (primary) hypertension; E66.9 Obesity, unspecified; D72.829 Elevated white blood cell count, unspecified; G62.9 Polyneuropathy, unspecified; F41.9 Anxiety disorder, unspecified; E86.1 Hypovolemia; D64.9 Anemia, unspecified; Z79.899 Other long term (current) drug therapy; Z88.8 Allergy status to other drugs, medicaments and biological substances; Z88.1 Allergy status to other antibiotic agents; Z88.5 Allergy status to narcotic agent; Z90.49 Acquired absence of other specified parts of digestive tract; Z68.28 Body mass index [BMI] 28.0-28.9, adult; Z78.1 Physical restraint status
CPT/HCPCS: 36415; 36416; 36569; 71045; 80048; 80202; 82728; 82805; 83735; 83880; 84100; 85007; 85025; 85027; 85379; 86140; 86769; 87635; 93005; 93010; 94002; 94003; 94640; C1751; J0456; J0690; J0692; J1630; J1642; J1644; J1650; J1940; J2060; J2250; J2270; J2704; J2920; J2930; J3010; J3262; J3370; J3475; J3480; J3490; J7030; J7042; J7050; J7120; P9045; P9047; S0020; S0028; U0003

== ENCOUNTER 2020-05-20 09:51 | Outpatient (CLI) | payer MEDICARE, BC ==
--- NOTE | 2020-05-20 10:27 | RAD ---
XR Chest Pa Lat STANDARD HISTORY: Dyspnea COMPARISON: 03/02/2020 FINDINGS: There has been interval removal of the tracheostomy tube. The heart size normal. The aorta is tortuous. Chronic changes again seen. No lobar consolidation, pneumothoraces or pleural effusions are seen. There are degenerative changes in the spine. IMPRESSION: No radiographic evidence of acute cardiopulmonary process.
== END 2020-05-20 09:52 | disposition home or self-care (01) ==
LOC: BICRAD 09:51
PROVIDERS: ATTEND Internal Medicine Critical Care Medicine
DX: R06.00 Dyspnea, unspecified (principal)
CPT/HCPCS: 71046

== ENCOUNTER 2020-07-21 08:34 | Outpatient (CLI) | payer MEDICARE, BC ==
[2020-07-21] MEDS ORDERED: ADENOSINE 60 MG/20 ML VIAL ONE (08:55)
--- NOTE | 2020-07-21 17:36 | NM ---
MYOCARDIAL PERFUSION EVALUATION: DATE: 07/21/2020 INDICATION: History of chest pain. RADIOPHARMACEUTICAL: 29.5 mCi technetium-99m sestamibi IV with stress and 10.3 mCi technetium-99m sestamibi IV with rest. FINDINGS: When comparing the stress and rest images, there is a persistent region of mild reduced activity invo lving the left ventricular apex that persists on the rest and stress images suspicious for overlying apical thinning versus soft tissue attenuation artifact. There is normal wall motion and thickening w ith an estimated LVEF of 76%. IMPRESSION: 1. Probably normal myocardial perfusion evaluation. 2. No reversible myocardial perfusion defect demonstrated to suggest presence of ischemia. 3. Persistent fixed defect involving the left ventricular apex likely related to overlying soft tiss ue attenuation. 4. Estimated LVEF of 76%. POS: [facility]
== END 2020-07-21 08:35 | disposition home or self-care (01) ==
LOC: NM 08:34
PROVIDERS: ATTEND Internal Medicine
DX: R07.9 Chest pain, unspecified (principal)
CPT/HCPCS: 78452; 93017; A9500; J0153

== ENCOUNTER 2020-08-02 10:00 | Outpatient (CLI) | payer MEDICARE, BC ==
--- NOTE | 2020-08-02 10:57 | MMO ---
Bilateral MAMMO Bilat Screen [facility]. CLINICAL HISTORY: Patient is 74 years old and is seen for screening. The patient has the following family history of breast cancer: 3 maternal aunts and 2 cousin females. The patient has no personal history of cancer. The patient has a history of right Excisional Biopsy at age 26 - benign. VIEWS: The views performed were: bilateral craniocaudal with tomosynthesis and bilateral mediolateral oblique with tomosynthesis. FILMS COMPARED: The present examination has been compared to prior imaging studies performed at [facility] on 07/30/2018 and 07/31/2019. This study has been interpreted with the assistance of computer-aided detection. MAMMOGRAM FINDINGS: There are scattered fibroglandular densities. There are no suspicious masses, suspicious calcifications, or new areas of architectural distortion. IMPRESSION: THERE IS NO MAMMOGRAPHIC EVIDENCE OF MALIGNANCY. A ROUTINE FOLLOW-UP MAMMOGRAM IN 1 YEAR IS RECOMMENDED. THE RESULTS OF THIS EXAM WERE SENT TO THE PATIENT. ACR BI-RADS Category 1 - Negative MAMMOGRAPHY NOTE: 1. A negative mammogram report should not delay a biopsy if a dominant of clinically suspicious mass is present. 2. Approximately 10% to 15% of breast cancers are not detected by mammography. 3. Adenosis and dense breasts may obscure an underlying neoplasm. Reported by: Sony ALBARRAN Electonically Signed: [id number]
== END 2020-08-02 10:01 | disposition home or self-care (01) ==
LOC: BICMAMMO 10:00
PROVIDERS: ATTEND Student in an Organized Health Care Education/Training Program
DX: Z12.31 Encounter for screening mammogram for malignant neoplasm of breast (principal); Z80.3 Family history of malignant neoplasm of breast; Z91.89 Other specified personal risk factors, not elsewhere classified
CPT/HCPCS: 77063; 77067

== ENCOUNTER 2021-08-04 10:58 | Outpatient (CLI) | payer MEDICARE, BC | END 2021-08-04 10:59 | disposition home or self-care (01) | LOC: BICMAMMO 10:58 | PROVIDERS: ATTEND Student in an Organized Health Care Education/Training Program | DX: Z12.31 Encounter for screening mammogram for malignant neoplasm of breast (principal); Z80.3 Family history of malignant neoplasm of breast | CPT/HCPCS: 77063; 77067 ==

== ENCOUNTER 2022-08-06 10:23 | Outpatient (CLI) | payer MEDICARE, BC | END 2022-08-06 10:24 | disposition home or self-care (01) | LOC: BICMAMMO 10:23 | PROVIDERS: ATTEND Internal Medicine | DX: Z12.31 Encounter for screening mammogram for malignant neoplasm of breast (principal); Z78.0 Asymptomatic menopausal state; Z80.3 Family history of malignant neoplasm of breast; Z91.89 Other specified personal risk factors, not elsewhere classified; M81.0 Age-related osteoporosis without current pathological fracture | CPT/HCPCS: 77063; 77067; 77080 ==

== ENCOUNTER 2024-03-11 11:06 | Outpatient (CLI) | payer MEDICARE, BC | END 2024-03-11 11:07 | disposition home or self-care (01) | LOC: SCSRAD 11:06 | PROVIDERS: ATTEND Nurse Practitioner Family | DX: M54.50 Low back pain, unspecified (principal); M53.3 Sacrococcygeal disorders, not elsewhere classified; M47.816 Spondylosis without myelopathy or radiculopathy, lumbar region; M46.06 Spinal enthesopathy, lumbar region; M43.16 Spondylolisthesis, lumbar region; M25.78 Osteophyte, vertebrae; M89.38 Hypertrophy of bone, other site | CPT/HCPCS: 72110; 72220 ==

== ENCOUNTER 2024-04-20 09:17 | Outpatient (CLI) | payer MEDICARE, BC | END 2024-04-20 09:18 | disposition home or self-care (01) | LOC: BICMAMMO 09:17 | PROVIDERS: ATTEND Internal Medicine | DX: M81.0 Age-related osteoporosis without current pathological fracture (principal); M85.89 Other specified disorders of bone density and structure, multiple sites | CPT/HCPCS: 77080 ==

== ENCOUNTER 2024-08-18 09:57 | Outpatient (CLI) | payer MEDICARE, BC | END 2024-08-18 09:58 | disposition home or self-care (01) | LOC: BICMAMMO 09:57 | PROVIDERS: ATTEND Internal Medicine | DX: Z12.31 Encounter for screening mammogram for malignant neoplasm of breast (principal); Z80.3 Family history of malignant neoplasm of breast; Z91.89 Other specified personal risk factors, not elsewhere classified | CPT/HCPCS: 77063; 77067 ==